=== PATIENT | female | born 1955 | race Caucasian/White ===

== ENCOUNTER 2020-08-10 06:19 | Outpatient (REF) | payer MEDICARE, SELFPAY ==
[2020-08-10 07:47] LABS: Cholesterol 200 mg/dL; HDL Cholesterol 38 mg/dL; LDL Cholesterol Calculated 123 mg/dl; Triglycerides 196 mg/dL
[2020-08-10 08:10] LABS: Thyroid Stimulating Hormone 0.39 mIU/mL (0.32-4.0)
== END 2020-08-10 06:20 | disposition home or self-care (01) ==
LOC: HO.LAB 06:19
PROVIDERS: PCP Internal Medicine; Visit Provider Internal Medicine
DX: E78.5 Hyperlipidemia, unspecified (principal)
CPT/HCPCS: 80061; 84443

== ENCOUNTER 2020-09-10 09:56 | Outpatient (REF) | payer MEDICARE, SELFPAY | END 2020-09-10 09:57 | disposition home or self-care (01) | LOC: HO.LAB 09:56 | PROVIDERS: PCP Internal Medicine; Visit Provider Internal Medicine | DX: Z20.828 Contact with and (suspected) exposure to other viral communicable diseases (principal) | CPT/HCPCS: C9803; U0003 ==

== ENCOUNTER 2020-09-11 10:00 | Outpatient (REF) | payer MEDICARE, SELFPAY ==
--- NOTE | 2020-09-11 10:04 | MM_ITS ---
EXAMINATION: MM SCREENING DIGITAL BREAST TOMOSYNTHESIS, BILATERAL CLINICAL INFORMATION: Screening. Asymptomatic. The lifetime risk of breast cancer based on the Tyrer-Cuzick Model is 12%. COMPARISON: Mammography: 09/06/2019, 08/14/2018 TECHNIQUE: Digital breast tomosynthesis is performed in both the craniocaudal and mediolateral oblique views along with computer-aided detection (CAD). Synthesized 2D images are generated from the tomosynthesis. Additional left cleavage view is provided. FINDINGS: The breasts are almost entirely fatty (ACR BI-RADS breast composition Category a). Background stromal markings and fibroglandular densities anterior breasts are stable. There is no developing density or interval mass or architectural abnormality. No abnormal calcifications. No significant changes. MM/MM tomosynthesis screening BI IMPRESSION: No mammographic evidence of malignancy. ASSESSMENT: BI-RADS 1: Negative RECOMMENDATION: Routine annual mammography screening. This patient's information was entered into a reminder system with a target due date for their next mammogram.
== END 2020-09-11 10:01 | disposition home or self-care (01) ==
LOC: HO.MAMMO 10:00
PROVIDERS: PCP Internal Medicine; Visit Provider Internal Medicine
DX: Z12.31 Encounter for screening mammogram for malignant neoplasm of breast (principal)
CPT/HCPCS: 77063; 77067

== ENCOUNTER 2020-09-18 14:04 | Outpatient (REF) | payer MEDICARE, SELFPAY ==
[2020-09-18 14:46] LABS: MANUAL DIFF FLAG NO
[2020-09-18 14:47] LABS: Basophils Percent Auto 0.3 % (0-2); Eosinophils Percent Auto 0.5 % (0-4); Hematocrit 41.5 % (37-47); Hemoglobin 13.3 g/dl (12.0-16.0); Imm Gran Abs Auto 0.01 X10*3/uL (0.00-0.03); Imm Gran Pct Auto 0.3 % (0.0-0.4); Lymphocytes Absolute Auto 1.7 X10*3/uL (1.2-4.9); Lymphocytes Percent Auto 46.4 % (20-40); Mean Corpuscular Hemoglobin 30.1 pg (27.0-33.0); Mean Corpuscular Volume 93.9 fL (80-98); Mean Platelet Volume 10.4 fL (9.4-12.3); Monocytes Absolute Auto 0.5 X10*3/uL (0.1-1.2); Monocytes Percent Auto 13.5 % (2-11); Neutrophils Absolute Auto 1.5 X10*3/uL (2.0-8.3); Platelet Count 149 X10*3/uL (160-400); Red Blood Count 4.42 X10*6/uL (4.20-5.50); Red Cell Distribution Width 12.8 % (11.0-16.0); White Blood Count 3.7 X10*3/uL (4.8-10.8)
[2020-09-18 15:23] LABS: Anion Gap 11 (12-20); Blood Urea Nitrogen 15 mg/dL (9-16); Carbon Dioxide 27 mmol/L (22-29); Chloride 106 mmol/L (96-108); Estimated Glomerular Filt Rate 52; Glucose Random 89 mg/dL (60-115); Potassium 4.2 mmol/l (3.3-5.1); Sodium 140 mmol/L (135-145)
== END 2020-09-18 14:05 | disposition home or self-care (01) ==
LOC: HO.LAB 14:04
PROVIDERS: PCP Internal Medicine; Visit Provider Internal Medicine
DX: Z00.00 Encounter for general adult medical examination without abnormal findings (principal); R51.9 Headache, unspecified
CPT/HCPCS: 36415; 80048; 85025

== ENCOUNTER 2020-09-22 10:13 | Outpatient (REF) | payer MEDICARE, SELFPAY ==
--- NOTE | 2020-09-22 10:25 | US_ITS ---
EXAMINATION: US ABDOMEN COMPLETE CLINICAL INFORMATION: Unspecified abdominal pain. COMPARISON: CT abdomen and pelvis 07/19/2018. Ultrasound abdomen 11/04/2010. TECHNIQUE: Real-time imaging of the abdominal viscera. FINDINGS: PANCREAS: Normal. ABDOMINAL AORTA: The proximal, mid, and distal segments are normal in caliber. INFERIOR VENA CAVA: Visualized portions are normal. LIVER: The liver is enlarged. The right lobe measures 20.3 cm. There is mild hepatic increased echogenicity with focal fatty sparing adjacent to the gallbladder. No other focal liver lesions seen. The liver contour is normal. There is no intrahepatic biliary duct dilatation seen. GALLBLADDER: Normal. The gallbladder is physiologically distended without evidence of stones, sludge, polyps, wall thickening, or pericholecystic fluid. COMMON BILE DUCT: Normal in caliber measuring 0.4 cm in diameter. RIGHT KIDNEY: Normal. No hydronephrosis. No renal calculi or focal parenchymal lesions. The kidney measures 12.7 cm in maximum dimension. LEFT KIDNEY: There are 2 anechoic cysts seen. A lower pole cyst measures 1.9 x 1.7 x 2.5 cm and an upper pole cyst measures 1.2 x 1.4 x 1.3 cm. Suspect mild hydronephrosis. No renal calculi. The kidney measures 11.0 cm in maximum dimension. SPLEEN: Normal. The spleen measures 13.0 cm in maximum dimension. FREE FLUID: None. US/US abdomen complete IMPRESSION: Hepatomegaly with hepatic steatosis. There is focal fatty sparing adjacent to the gallbladder. Two left renal cysts with mild hydronephrosis.
== END 2020-09-22 10:14 | disposition home or self-care (01) ==
LOC: HO.HMGCX 10:13
PROVIDERS: PCP Internal Medicine; Visit Provider Internal Medicine
DX: R10.9 Unspecified abdominal pain (principal)
CPT/HCPCS: 76700

== ENCOUNTER 2020-09-23 10:59 | Outpatient (REF) | payer MEDICARE, SELFPAY ==
[2020-09-23 11:35] LABS: MANUAL DIFF FLAG NO
[2020-09-23 11:45] LABS: Basophils Percent Auto 0.4 % (0-2); Eosinophils Absolute Auto 0.1 X10*3/uL (0.0-0.4); Eosinophils Percent Auto 1.1 % (0-4); Hematocrit 42.5 % (37-47); Hemoglobin 13.6 g/dl (12.0-16.0); Imm Gran Abs Auto 0.02 X10*3/uL (0.00-0.03); Imm Gran Pct Auto 0.4 % (0.0-0.4); Lymphocytes Absolute Auto 1.9 X10*3/uL (1.2-4.9); Lymphocytes Percent Auto 42.5 % (20-40); Mean Corpuscular Hemoglobin 30.2 pg (27.0-33.0); Mean Corpuscular Volume 94.4 fL (80-98); Monocytes Absolute Auto 0.6 X10*3/uL (0.1-1.2); Monocytes Percent Auto 13.3 % (2-11); Neutrophils Absolute Auto 1.9 X10*3/uL (2.0-8.3); Neutrophils Percent Auto 42.3 % (45-73); Platelet Count 220 X10*3/uL (160-400); Red Cell Distribution Width 12.9 % (11.0-16.0); White Blood Count 4.5 X10*3/uL (4.8-10.8)
[2020-09-23 12:12] LABS: Anion Gap 11 (12-20); Blood Urea Nitrogen 14 mg/dL (9-16); Calcium 8.7 mg/dL (8.4-10.2); Carbon Dioxide 27 mmol/L (22-29); Chloride 107 mmol/L (96-108); Cholesterol 148 mg/dL; Estimated Glomerular Filt Rate 58; Glucose Random 100 mg/dL (60-115); HDL Cholesterol 25 mg/dL; LDL Cholesterol Calculated 81 mg/dl; Potassium 4.4 mmol/l (3.3-5.1); Sodium 141 mmol/L (135-145); Triglycerides 213 mg/dL
[2020-09-23 12:35] LABS: Thyroid Stimulating Hormone 0.27 uIU/mL (0.32-4.0)
== END 2020-09-23 11:00 | disposition home or self-care (01) ==
LOC: HO.LAB 10:59
PROVIDERS: PCP Internal Medicine; Visit Provider Internal Medicine
DX: E03.9 Hypothyroidism, unspecified (principal); R51.9 Headache, unspecified; Z00.00 Encounter for general adult medical examination without abnormal findings; E11.9 Type 2 diabetes mellitus without complications
CPT/HCPCS: 36415; 80048; 80061; 84443; 85025

== ENCOUNTER → 2020-11-24 09:10 | Outpatient (BNVA) | payer MEDICARE, SELFPAY | PROVIDERS: PCP Internal Medicine; Visit Provider Physician Assistant | DX: Z13.89 Encounter for screening for other disorder (principal) | CPT/HCPCS: 99212 ==

== ENCOUNTER 2020-11-25 13:33 | Outpatient (REF) | payer MEDICARE, SELFPAY | END 2020-11-25 13:34 | disposition home or self-care (01) | LOC: HO.LAB 13:33 | PROVIDERS: Visit Provider Internal Medicine | DX: Z20.822 Contact with and (suspected) exposure to COVID-19 (principal) | CPT/HCPCS: 36415; C9803; U0003 ==

== ENCOUNTER 2021-01-14 08:02 | Day surgery (SDC) | payer MEDICARE, SELFPAY ==
[2021-01-08 11:44] VITALS: BMI 46.5
--- NOTE | 2021-01-13 10:11 | HO.ANESPROP2 ---
Documented by User: Luann Walton 01/13/21 10:12 HPI - Anesthesia Eval Consult details Narrative: 65yo F for Upper Endoscopy and Colonoscopy PMFSH Active Problems Active Problems: All Active Problems (Updated 01/08/21 @ 11:47 by Therese Wiseman) Hypothyroidism (Acute) Peripheral edema (Acute) Abdominal pain (Acute) Abdominal bloating (Acute) Early satiety (Acute) Encounter for screening colonoscopy (Acute) HTN (hypertension) (Acute) Past Medical History Medical History Elevated cholesterol History of fatty infiltration of liver HTN (hypertension) Hx of simple renal cyst Peptic ulcer Thyroid disease Family History Family History Father CVD (cardiovascular disease) Past heart attack Mother Breast cancer Bone metastases Brother Past heart attack Surgical History Surgical History History of bilateral cataract extraction History of tonsillectomy and adenoidectomy Social History Social History Household Members: None Are you a primary residential caregiver to a significant other at home: No Do you presently have visiting nurse or other home services: No Alcohol intake: never Smoking Status: Never smoker Use of substances other than those prescribed or required for medical reasons: No Have you been hit, kicked, punched, or otherwise hurt by someone within the past year? If so, by whom?: No Advance Directives Information Provided: No Recently lost weight without trying: No Meds Allergies Allergy/AdvReac Type Severity Reaction Status Date / Time bee pollen Allergy Severe Swelling Verified 01/08/21 11:43 ciprofloxacin [From Cipro] Allergy Severe RASH-ITCHIN Verified 01/08/21 11:30 G Penicillins Allergy Intermediate Rash Verified 01/08/21 11:30 Sulfa (Sulfonamide Allergy Intermediate HIVES Verified 11/24/20 09:29 Antibiotics) [SULFA (SULFONAMIDE ANTIBIOTICS)] Home Medications Medication Instructions Recorded Confirmed Last Taken Type prednisolone acetate 1 % eye drp OPHTHALMIC (EYE) 08/17/20 09/28/20 Unknown History drops,suspension furosemide 20 mg PO Q2D 01/08/21 01/08/21 Unknown History lovastatin 10 mg PO BEDTIME 01/08/21 01/08/21 Unknown History Exam Exam Date and Time: January 13, 2021 1011 Height,Weight and Vital Signs: Height 5 ft 9 in Weight 142.882 kg Pertinent Lab Results Pertinent Lab Results: Laboratory Tests 09/23/20 09/23/20 11:20 11:20 WBC 4.5 L Hgb 13.6 Hct 42.5 Plt Count 220 D Sodium 141 Potassium 4.4 Chloride 107 Carbon Dioxide 27 BUN 14 Creatinine 0.96 Assessment and Plan Assessment Anesthesia Assessment: Chart Reviewed Documented by User: Zak Juarez 01/14/21 09:10 PMF Past Medical History Medical History Elevated cholesterol History of fatty infiltration of liver HTN (hypertension) Hx of simple renal cyst Peptic ulcer Thyroid disease Family History Family History Father CVD (cardiovascular disease) Past heart attack Mother Breast cancer Bone metastases Brother Past heart attack Surgical History Surgical History History of bilateral cataract extraction History of tonsillectomy and adenoidectomy Social History Social History Household Members: None Are you a primary residential caregiver to a significant other at home: No Do you presently have visiting nurse or other home services: No Alcohol intake: never Smoking Status: Never smoker Use of substances other than those prescribed or required for medical reasons: No Have you been hit, kicked, punched, or otherwise hurt by someone within the past year? If so, by whom?: No Advance Directives Information Provided: No Recently lost weight without trying: No Meds Allergies Allergy/AdvReac Type Severity Reaction Status Date / Time bee pollen Allergy Severe Swelling Verified 01/08/21 11:43 ciprofloxacin [From Cipro] Allergy Severe RASH-ITCHIN Verified 01/08/21 11:30 G Penicillins Allergy Intermediate Rash Verified 01/08/21 11:30 Sulfa (Sulfonamide Allergy Intermediate HIVES Verified 11/24/20 09:29 Antibiotics) [SULFA (SULFONAMIDE ANTIBIOTICS)] Home Medications Medication Instructions Recorded Confirmed Last Taken Type prednisolone acetate 1 % eye drp OPHTHALMIC (EYE) 08/17/20 09/28/20 Unknown History drops,suspension furosemide 20 mg PO Q2D 01/08/21 01/08/21 Unknown History lovastatin 10 mg PO BEDTIME 01/08/21 01/08/21 Unknown History Exam Airway Mallampati Class: III TM Dist: >3cm Neck ROM: Full Loose/Missing/Broken Teeth: Yes Heart: [id number] Lungs: cta b/l Assessment and Plan Assessment Anesthesia Assessment: Anesthesia Plan Discussed, PAT Visit and Chart Reviewed Final Anesthetic Review NPO: Yes ASA Class: III Final Preanesthetic Review: No Changes in Pt Med Stat, Meds/Allgs Chart Reviewed, Consent Obtained/Reviewed and Anes Risks/Benef Reviewed Patient Risk: Intermediate Procedure Risk: Low Assessment/Block/Sedation in SS: Assess/Block/Sedation-SS Anesthetic Plan Anesthetic Plan: MAC: and Agree w/ Assess. and Plan Disposition: Standard PACU
[2021-01-14 08:33] VITALS: BP 138/64; PULSE 62; RESP 18; TEMP 36.4; O2SAT 98
[2021-01-14] MEDS: Lactated Ringers 1,000 ML 50 ML IV (09:20)
--- NOTE | 2021-01-14 09:25 | MHC.SHP ---
Pre-Procedural Eval Section B Chief Complaint: screening Details of Present Illness: Gerd-dyspepsia, Colon cancer screening No clinical changes from last preprocedure visit BMI--46.5 Relevant Family History (Specify if Yes): No Relevant Social History: None Present Medications: see Short Stay Collaborative assessment Medical History: Significant History (Morbid obesity, Hypertension) History of Previous Operations: No relevant previous surgery Allergies: Allergies Allergy/AdvReac Type Severity Reaction Status Date / Time bee pollen Allergy Severe Swelling Verified 01/08/21 11:43 ciprofloxacin [From Cipro] Allergy Severe RASH-ITCHIN Verified 01/08/21 11:30 G Penicillins Allergy Intermediate Rash Verified 01/08/21 11:30 Sulfa (Sulfonamide Allergy Intermediate HIVES Verified 11/24/20 09:29 Antibiotics) [SULFA (SULFONAMIDE ANTIBIOTICS)] Review of Systems Sugical H&P ROS: Negative: Constitution, Cardiovascular, Respiratory and Gastrointestinal Exam Surgical H&P Exam: Normal: HEENT, Normal: Heart, Normal: Lungs, Normal: Extremities and Normal: Skin and Significant Findings: Abdomen (central obesity) Exam Comment: Patient does want to do the EGD as well. Plan Diagnosis/Plan: Unchanged I have reviewed the history and physical and performed a pertinent physical examination on my patient. No changes have occurred unless specified.yes
[2021-01-14 10:08] VITALS: BP 99/53; PULSE 64; RESP 20; TEMP 36.3; O2SAT 98
--- NOTE | 2021-01-14 10:17 | PM.OP ---
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
[2021-01-14 10:23] VITALS: BP 118/70; PULSE 53; RESP 20; TEMP 36.3; O2SAT 97
--- NOTE | 2021-01-14 12:32 | P.OP_ITS ---
Operative Note Operative Note Date of Service: 01/14/21 Narrative: Preop diagnosis: GERD; Colon cancer screening #1 Post-op diagnosis: other (Small Hiatal hernia, Diverticulosis, Venous blebs) Procedure: EGD w/ bx; Colonoscopy Implants: NONE Surgeon: Keke Hopkins MD Anesthesia: MAC (Cuff,VISION REHABILITATION THERAPIST) FINDINGS: EGD: Video endoscope was introduced with no difficulty: View of the arytenoid cartilages showed mild edema with erythema medially that did not involve the cords. Vocal cords appeared clear. Scope easily passed into the esophagus. No mucosal lesions were seen in this area and no esophageal varices were present. GE junction was visualized. Gastric mucosa was normal. Good retroflex view of the fundus was normal. Duodenal bulb and duodenum were normal. Random gastric bx were done on withdrawing the scope. AHSAN:Sphincter tone slight decrease Adult slim colonoscope introduced with no difficulty, advanced by multiple wide mouth diverticuli into transverse colon. From this area on scattered venous blebs were noted. Scope passed easily into the ascending colon and then into the cecum. Appendiceal orifice, ileocecal valve were well seen. PREP: Good Slow withdrawal of scope, good rotational views no mucosal lesions were seen. ARV was clear. (no bx done). Estimated blood loss (mL): 5 Pathology: other EGD--(Random gastric) Condition: stable Disposition: PACU PLAN: Patient will be seen back in the office to review findings. She had had some significant findings on imaging of her liver--U/S done in August 2020. Hepatomegaly, steatosis, and borderline spleen size @ 13cm. Further testing to evaluate that finding will be discussed @ that time.
== END 2021-01-14 10:53 | disposition home or self-care (01) ==
PROVIDERS: PCP Internal Medicine; Visit Provider Internal Medicine Gastroenterology
PROC: (CPT 43239; principal; 2021-01-14 09:20)
DX: Z12.11 Encounter for screening for malignant neoplasm of colon (principal); K57.30 Diverticulosis of large intestine without perforation or abscess without bleeding; K21.9 Gastro-esophageal reflux disease without esophagitis; K44.9 Diaphragmatic hernia without obstruction or gangrene; I10 Essential (primary) hypertension; E03.9 Hypothyroidism, unspecified; N28.1 Cyst of kidney, acquired; E66.01 Morbid (severe) obesity due to excess calories; Z68.42 Body mass index [BMI] 45.0-49.9, adult; Z79.899 Other long term (current) drug therapy; Z88.0 Allergy status to penicillin; Z88.2 Allergy status to sulfonamides; Z87.11 Personal history of peptic ulcer disease
CPT/HCPCS: 43239; G0121; 88305; 88342

== ENCOUNTER → 2021-02-04 09:39 | Outpatient (BNVA) | payer MEDICARE, SELFPAY | PROVIDERS: PCP Internal Medicine; Visit Provider Physician Assistant | DX: K44.9 Diaphragmatic hernia without obstruction or gangrene (principal); K57.30 Diverticulosis of large intestine without perforation or abscess without bleeding; K76.0 Fatty (change of) liver, not elsewhere classified | CPT/HCPCS: 99212 ==

== ENCOUNTER 2021-02-08 06:27 | Outpatient (REF) | payer MEDICARE, SELFPAY ==
[2021-02-08 08:18] LABS: Anion Gap 16 (12-20); Blood Urea Nitrogen 17 mg/dL (9-16); Calcium 9.1 mg/dL (8.4-10.2); Carbon Dioxide 24 mmol/L (22-29); Chloride 106 mmol/L (96-108); Estimated Glomerular Filt Rate 55; Glucose Random 103 mg/dL (60-115); Potassium 4.4 mmol/L (3.3-5.1); Sodium 142 mmol/L (135-145)
[2021-02-08 08:41] LABS: Thyroid Stimulating Hormone 0.14 uIU/mL (0.32-4.0)
== END 2021-02-08 06:28 | disposition home or self-care (01) ==
LOC: HO.LAB 06:27
PROVIDERS: PCP Internal Medicine; Visit Provider Internal Medicine
DX: E03.9 Hypothyroidism, unspecified (principal); R51.9 Headache, unspecified
CPT/HCPCS: 36415; 80048; 84443

== ENCOUNTER 2021-07-21 11:09 | Outpatient (REF) | payer MEDICARE, SELFPAY | END 2021-07-21 11:10 | disposition home or self-care (01) | LOC: HO.LAB 11:09 | PROVIDERS: PCP Internal Medicine; Visit Provider Internal Medicine | DX: Z20.822 Contact with and (suspected) exposure to COVID-19 (principal) | CPT/HCPCS: C9803; U0003; U0005 ==

== ENCOUNTER 2021-08-12 06:41 | Outpatient (REF) | payer MEDICARE, SELFPAY ==
[2021-08-12 06:46] LABS: MANUAL DIFF FLAG NO
[2021-08-12 07:15] LABS: Basophils Percent Auto 0.6 % (0-2); Eosinophils Percent Auto 1.9 % (0-4); Hematocrit 42.5 % (37-47); Hemoglobin 13.9 g/dl (12.0-16.0); Imm Gran Abs Auto 0.02 X10*3/uL (0.00-0.03); Imm Gran Pct Auto 0.2 % (0.0-0.4); Lymphocytes Absolute Auto 2.6 X10*3/uL (1.2-4.9); Lymphocytes Percent Auto 27.2 % (20-40); Mean Corpuscular HGB Conc 32.7 g/dl (31.0-35.0); Mean Corpuscular Hemoglobin 31.1 pg (27.0-33.0); Mean Corpuscular Volume 95.1 fL (80-98); Mean Platelet Volume 9.5 fL (9.4-12.3); Monocytes Percent Auto 6.4 % (2-11); Neutrophils Percent Auto 63.7 % (45-73); Platelet Count 235 X10*3/uL (160-400); Red Blood Count 4.47 X10*6/uL (4.20-5.50); Red Cell Distribution Width 13.2 % (11.0-16.0); White Blood Count 9.5 X10*3/uL (4.8-10.8)
[2021-08-12 07:16] LABS: Basophils Absolute Auto 0.1 X10*3/uL (0.0-0.2); Eosinophils Absolute Auto 0.2 X10*3/uL (0.0-0.4); Monocytes Absolute Auto 0.6 X10*3/uL (0.1-1.2)
[2021-08-12 07:58] LABS: Alanine Aminotransferase 20 U/L (0-31); Albumin Level 4.3 g/dL (3.5-5.0); Alkaline Phosphatase 91 U/L (39-117); Anion Gap 11 (12-20); Aspartate Amino Transferase 20 U/L (5-31); Bilirubin Total 0.8 mg/dL (0.0-1.0); Blood Urea Nitrogen 16 mg/dL (9-16); Calcium 9.4 mg/dL (8.4-10.2); Carbon Dioxide 28 mmol/L (22-29); Chloride 105 mmol/L (96-108); Cholesterol 216 mg/dL; Estimated Glomerular Filt Rate 50; Glucose Fasting 98 mg/dL (60-99); HDL Cholesterol 39 mg/dL; LDL Cholesterol Calculated 141 mg/dl; Potassium 4.3 mmol/L (3.3-5.1); Sodium 140 mmol/L (135-145); Total Protein 6.9 g/dL (6.5-8.0); Triglycerides 183 mg/dL
[2021-08-12 08:06] LABS: Thyroid Stimulating Hormone 5.05 uIU/mL (0.32-4.0)
== END 2021-08-12 06:42 | disposition home or self-care (01) ==
LOC: HO.LAB 06:41
PROVIDERS: PCP Internal Medicine; Visit Provider Internal Medicine
DX: Z00.00 Encounter for general adult medical examination without abnormal findings (principal); E11.9 Type 2 diabetes mellitus without complications; E03.9 Hypothyroidism, unspecified
CPT/HCPCS: 36415; 80053; 80061; 84443; 85025

== ENCOUNTER 2021-09-01 10:40 | Outpatient (REF) | payer MEDICARE, SELFPAY ==
--- NOTE | ~2021-09-01 | XR_ITS ---
EXAMINATION: XR CHEST CLINICAL INFORMATION: Dizziness. COMPARISON: 03/18/2015 TECHNIQUE: 2 views of the chest were obtained. FINDINGS: There is no acute finding. No infiltrate. No failure. No effusion. The cardiac silhouette is felt to be comparable to previous. The hilar structures are comparable. Mild degenerative change in the thoracic spine. XR/XR chest 2V IMPRESSION: No acute finding.
[2021-09-01 11:04] LABS: MANUAL DIFF FLAG NO
--- NOTE | 2021-09-01 11:06 | ECG_ITS ---
Test Reason : SOB HEADACHE Blood Pressure : / mmHG Vent. Rate : 058 BPM Atrial Rate : 058 BPM P-R Int : 138 ms QRS Dur : 112 ms QT Int : 418 ms P-R-T Axes : 035 -49 -17 degrees QTc Int : 410 ms Sinus bradycardia Left anterior fascicular block Abnormal ECG When compared with ECG of 18-MAR-2015 11:20, Premature supraventricular complexes are no longer Present Referred By: Ilia Stanton Electronically Signed By:RENE VINES MD
[2021-09-01 11:11] LABS: Basophils Percent Auto 0.5 % (0-2); Eosinophils Absolute Auto 0.2 X10*3/uL (0.0-0.4); Eosinophils Percent Auto 2.2 % (0-4); Hematocrit 44.2 % (37.0-47.0); Hemoglobin 14.4 g/dl (12.0-16.0); Imm Gran Abs Auto 0.03 X10*3/uL (0.00-0.03); Imm Gran Pct Auto 0.3 % (0.0-0.4); Lymphocytes Absolute Auto 2.5 X10*3/uL (1.2-4.9); Mean Corpuscular HGB Conc 32.6 g/dl (31.0-35.0); Mean Corpuscular Hemoglobin 31.3 pg (27.0-33.0); Mean Corpuscular Volume 96.1 fL (80.0-98.0); Mean Platelet Volume 9.5 fL (9.4-12.3); Monocytes Absolute Auto 0.6 X10*3/uL (0.1-1.2); Monocytes Percent Auto 6.5 % (2-11); Neutrophils Absolute Auto 5.32 x10*3/uL (2.0-8.3); Neutrophils Percent Auto 61.5 % (45-73); Platelet Count 239 X10*3/uL (160-400); Red Cell Distribution Width 13.2 % (11.0-16.0); White Blood Count 8.7 X10*3/uL (4.8-10.8)
[2021-09-01 12:10] LABS: Anion Gap 10 (12-20); Blood Urea Nitrogen 18 mg/dL (9-16); Calcium 9.7 mg/dL (8.4-10.2); Carbon Dioxide 30 mmol/L (22-29); Chloride 105 mmol/L (96-108); Cholesterol 214 mg/dL; Estimated Glomerular Filt Rate 58; Glucose Random 95 mg/dL (60-115); HDL Cholesterol 47 mg/dL; LDL Cholesterol Calculated 138 mg/dl; Potassium 4.5 mmol/L (3.3-5.1); Sodium 140 mmol/L (135-145); Triglycerides 149 mg/dL
[2021-09-01 12:32] LABS: Thyroid Stimulating Hormone 2.02 uIU/mL (0.32-4.0)
== END 2021-09-01 10:41 | disposition home or self-care (01) ==
LOC: HO.XRAY 10:40
PROVIDERS: PCP Internal Medicine; Visit Provider Internal Medicine
DX: Z00.00 Encounter for general adult medical examination without abnormal findings (principal); Z13.9 Encounter for screening, unspecified; E11.9 Type 2 diabetes mellitus without complications; E03.9 Hypothyroidism, unspecified; R51.9 Headache, unspecified; R42 Dizziness and giddiness
CPT/HCPCS: 36415; 71046; 80048; 80061; 84443; 85025; 93005

== ENCOUNTER 2021-09-07 10:04 | Outpatient (REF) | payer MEDICARE, SELFPAY | END 2021-09-07 10:05 | disposition home or self-care (01) | LOC: HO.LAB 10:04 | PROVIDERS: PCP Internal Medicine; Visit Provider Internal Medicine | DX: Z20.822 Contact with and (suspected) exposure to COVID-19 (principal) | CPT/HCPCS: C9803; U0003; U0005 ==

== ENCOUNTER 2021-09-09 06:57 | Emergency (ER) | payer MEDICARE, SELFPAY ==
--- NOTE | ~2021-09-09 | US_ITS ---
EXAMINATION: US VENOUS ULTRASOUND WITH DOPPLER LOWER EXTREMITY, LEFT CLINICAL INFORMATION: Pain and swelling left calf. Assess for occult DVT. COMPARISON: Left lower extremity venous ultrasound with Doppler. TECHNIQUE: Ultrasound of the deep veins is performed from the hip to the calf with compression sonography and color and pulse Doppler assessment. Spectral analysis with color-flow imaging is performed. FINDINGS: There is normal venous compression and respiratory variation and augmented flow. The visualized common femoral vein, superficial femoral vein, profunda femoral vein, popliteal vein, and the trifurcation region shows no evidence of deep venous thrombosis. No popliteal fossa cyst. No fluid tracking in soft tissue planes. US/US venous duplex LE LT IMPRESSION: No DVT demonstrated in the left lower extremity.
[2021-09-09 07:06] VITALS: BP 129/72; PULSE 64; RESP 19; TEMP 36.6; O2SAT 94; BMI 44.3
--- NOTE | 2021-09-09 08:58 | ED.GENADULT ---
HPI - General Adult General Chief complaint: Extremity Injury, Lower Stated complaint: lt leg pain & swelling Time Seen by Provider: 09/09/21 08:56 Source: patient Limitations: no limitations History of Present Illness HPI narrative: Patient presents complaining of left calf pain. Patient states pain in question swelling since yesterday. Patient denies any recent trauma to the left calf. Patient denies any prior history of DVTs or pulmonary embolisms. Patient does have history of hypertension hypercholesterolemia. And hypothyroidism. Pain is 6/10 and increases with palpation and ambulation. No prior history of similar events. Symptoms are moderate. Patient denies chest pain shortness of breath fever chills nausea vomiting. Related Data Home Medications Medication Instructions Recorded Confirmed furosemide 20 mg tablet 20 mg PO Q2D 01/08/21 09/01/21 brimonidine 0.2 % eye drops 1 drp OPHTHALMIC (EYE) BID ml 08/19/21 09/01/21 Previous Rx's Medication Instructions Recorded atenolol 50 mg tablet 50 mg PO DAILY #90 tab 10/16/20 omeprazole 20 mg capsule,delayed 20 mg PO DAILY #90 cap 01/19/21 release levothyroxine 200 mcg tablet 200 mcg PO DAILY #90 tab 08/19/21 lovastatin 20 mg tablet 20 mg PO DAILY #90 tab 08/19/21 grruwftpre-anfweotgdwksz-qcroiywi 1 cap PO Q8H PRN #14 cap 09/02/21 50 mg-300 mg-40 mg capsule (Fioricet) methocarbamol 500 mg tablet 500 mg PO TID PRN #20 tab 09/09/21 Allergies Allergy/AdvReac Type Severity Reaction Status Date / Time bee pollen Allergy Severe Swelling Verified 09/01/21 10:14 ciprofloxacin [From Cipro] Allergy Severe RASH-ITCHIN Verified 09/01/21 10:14 G Penicillins Allergy Intermediate Rash Verified 09/01/21 10:14 Sulfa (Sulfonamide Allergy Intermediate HIVES Verified 09/01/21 10:14 Antibiotics) [SULFA (SULFONAMIDE ANTIBIOTICS)] Review of Systems Constitutional: Constitutional: Denies chills, Denies fatigue, Denies fever(s) and Denies headache(s) ENT: Denies headache(s) and Denies sore throat Cardiovascular: Cardiovascular: Denies chest pain and Denies dyspnea Respiratory: Respiratory: Denies dyspnea Gastrointestinal: Gastrointestinal: Denies nausea and Denies vomiting Musculoskeletal: Comments: Left calf pain Neurologic: Denies headache(s) Endocrine: Endocrine: Reports no additional endocrine complaints and Denies fatigue Hematologic/Lymphatic: Hematologic/Lymphatic: Reports no additional hematologic/lymphatic complaints [facility] Past Medical History Medical History (Updated 09/09/21 @ 10:11 by Solo Sierra) Elevated cholesterol Hiatal hernia History of fatty infiltration of liver HTN (hypertension) Hx of simple renal cyst Peptic ulcer Thyroid disease Surgical History History of bilateral cataract extraction History of colonoscopy History of endoscopy History of tonsillectomy and adenoidectomy Family History Family History Father CVD (cardiovascular disease) Past heart attack Mother Breast cancer Bone metastases Brother Past heart attack Social History Social History Household Members: None Housing: Apartment Are you a primary acute care nurse practitioner to a significant other at home: No Do you presently have visiting nurse or other home services: No Alcohol intake: never Patient Tobacco Use Status: Never used Tobacco e-Cigarette/Vaping Use: Never Used Second Hand Smoke Exposure: No Advance Directives: No service: No Current occupational status: retired Cognitive needs: No Hearing needs: No Vision needs: No Physical Exam Vital Signs: Vital Signs: Last Vital Signs Temp 98 F 09/09/21 07:06 Pulse 56 09/09/21 09:35 Resp 16 09/09/21 09:35 BP 128/67 09/09/21 09:35 Pulse Ox 97 09/09/21 09:35 Body Mass Index 44.3 vital signs have been reviewed as normal and appeared to be correct. Blood pressure normal. Heart rate normal. Respiration rate normal. Temperature normal. Oxygen saturation normal. Appearance: Alert. Oriented X3. No acute distress. Head: Normal external exam. Normocephalic. Atraumatic. Eyes: PERRLA. EOMI. Conjunctiva and sclera normal. Eyelids normal. ENT: Pharynx normal. Uvula midline. Moist mucous membranes. Neck: Soft full range of motion, no JVD CVS: Heart regular rate and rhythm no murmurs and rubs Respiratory: Breath sounds are clear to auscultation bilaterally. No accessory muscle use noted. Abdomen: Soft nontender no rebound or guarding positive bowel sounds Back: Full range of motion noted. Skin: Skin warm and dry. Normal skin color. Normal skin turgor. No rashes/lesions/lacerations noted. Extremities: Left calf positive tenderness no ecchymosis no erythema noted. Keflex equal in size to the right calf. Pain increases with palpation. Neuro: Oriented X 3. No motor deficit. No sensory deficit. Reflexes normal. Course Course Course Narrative: Left calf strain Left leg DVT Neuropathy Vitamin deficiency Duplex ultrasound pending of left lower extremity 10:10 a.m. Ultrasound of left lower extremity shows no sign of DVT at this time plan the patient's symptoms likely secondary to calf cramping and/or muscle skeletal strain Medical Decision Making Imaging Data Venous US: Radiologist's impression: [address] [address] Ultrasound Report Signed Patient: Kirstin Tucker MR#: [id number] : 1955 Acct:[id number] Age/Sex: 65 / F ADM Date: 09/09/21 Loc: .ED Attending Dr: Ordering Physician: Solo Sierra Date of Service: 09/09/21 Procedure(s): US venous duplex LE Accession Number(s): [id number] cc: Solo Sierra ~ EXAMINATION:? US VENOUS ULTRASOUND WITH DOPPLER LOWER EXTREMITY, LEFT CLINICAL INFORMATION:? Pain and swelling left calf. Assess for occult DVT. COMPARISON:? Left lower extremity venous ultrasound with Doppler. TECHNIQUE: Ultrasound of the deep veins is performed from the hip to the calf with compression sonography and color and pulse Doppler assessment. Spectral analysis with color-flow imaging is performed. FINDINGS: There is normal venous compression and respiratory variation and augmented flow. The visualized common femoral vein, superficial femoral vein, profunda femoral vein, popliteal vein, and the trifurcation region shows no evidence of deep venous thrombosis. ? No popliteal fossa cyst. No fluid tracking in soft tissue planes. US/US venous duplex LE LT IMPRESSION: No DVT demonstrated in the left lower extremity. Dictated By: Reynold Beasley MD Signed By: <Electronically signed by Reynold Beasley MD in OV> 09/09/21 0953 DD/ 0856 TD/TT:? Communications Equipment Installer: BELL Discharge Plan Discharge Clinical Impression: Strain of calf muscle Qualifiers: Encounter type: initial encounter Laterality: left Qualified Code(s): S86.812A - Strain of other muscle(s) and tendon(s) at lower leg level, left leg, initial encounter Patient Disposition: Home, Self-Care Instructions: Muscle Strain (ED) Additional Instructions: Ultrasound of the left lower extremity is negative for any blood clots If symptoms are likely secondary to muscle calf strain. Although neuropathy pain cannot be ruled out follow-up with PCP is recommended. Prescriptions: New methocarbamol 500 mg tablet 500 mg PO TID PRN (Reason: muscle spasm) Qty: 20 RF: 0 No Action atenolol 50 mg tablet 50 mg PO DAILY Qty: 90 RF: 8 pqaqiqqtxc-gqhwjidttnbbe-yuvf [Fioricet] 50-300-40 mg capsule 1 cap PO Q8H PRN (Reason: pain) Qty: 14 RF: 0 furosemide 20 mg tablet 20 mg PO Q2D RF: 0 omeprazole 20 mg capsule,delayed release(DR/EC) 20 mg PO DAILY Qty: 90 RF: 8 brimonidine 0.2 % drops 1 drp ophthalmic (eye) BID RF: 0 levothyroxine 200 mcg tablet 200 mcg PO DAILY Qty: 90 RF: 8 lovastatin 20 mg tablet 20 mg PO DAILY Qty: 90 RF: 8
--- NOTE | 2021-09-09 09:01 | PC.NURSE ---
c/o left calf swelling. skin pwd. swelling is not noted by this rn.
[2021-09-09 09:35] VITALS: BP 128/67; PULSE 56; RESP 16; O2SAT 97
== END 2021-09-09 10:23 | disposition home or self-care (01) ==
PROVIDERS: Emergency Provider Emergency Medicine; PCP Internal Medicine
DX: S86.912A Strain of unspecified muscle(s) and tendon(s) at lower leg level, left leg, initial encounter (principal); M79.662 Pain in left lower leg; I10 Essential (primary) hypertension; X58.XXXA Exposure to other specified factors, initial encounter; Y93.9 Activity, unspecified; Y92.9 Unspecified place or not applicable; Y99.9 Unspecified external cause status
CPT/HCPCS: 93971; 99284

== ENCOUNTER 2021-11-01 10:30 | Outpatient (REF) | payer MEDICARE, SELFPAY ==
--- NOTE | ~2021-11-01 | MM_ITS ---
EXAMINATION: MM SCREENING DIGITAL BREAST TOMOSYNTHESIS, BILATERAL CLINICAL INFORMATION: Screening. Asymptomatic. The lifetime risk of breast cancer based on the Tyrer-Cuzick Model is 9%. COMPARISON: Mammography: 09/21/2020, 09/06/2019, 08/14/2018 TECHNIQUE: Digital breast tomosynthesis is performed in both the craniocaudal and mediolateral oblique views along with computer-aided detection (CAD). Synthesized 2D images are generated from the tomosynthesis. Additional bilateral CC and additional bilateral MLO views are provided. FINDINGS: The breasts are almost entirely fatty (ACR BI-RADS breast composition Category a). There are no significant masses, abnormal calcifications, or other abnormalities. Background stromal markings are stable. No significant changes. MM/MM tomosynthesis screening BI IMPRESSION: No mammographic evidence of malignancy. ASSESSMENT: BI-RADS 1: Negative RECOMMENDATION: Routine annual mammography screening. This patient's information was entered into a reminder system with a target due date for their next mammogram.
== END 2021-11-01 10:31 | disposition home or self-care (01) ==
LOC: HO.MAMMO 10:30
PROVIDERS: PCP Internal Medicine; Visit Provider Internal Medicine
DX: Z12.31 Encounter for screening mammogram for malignant neoplasm of breast (principal)
CPT/HCPCS: 77063; 77067

== ENCOUNTER 2021-11-19 11:33 | Outpatient (REF) | payer MEDICARE, SELFPAY | END 2021-11-19 11:34 | disposition home or self-care (01) | LOC: HO.LAB 11:33 | PROVIDERS: Visit Provider Internal Medicine | DX: Z20.822 Contact with and (suspected) exposure to COVID-19 (principal); R09.89 Other specified symptoms and signs involving the circulatory and respiratory systems | CPT/HCPCS: U0003; U0005 ==

== ENCOUNTER 2022-01-04 14:40 | Outpatient (REF) | payer MEDICARE, SELFPAY ==
--- NOTE | ~2022-01-04 | XR_ITS ---
EXAMINATION: XR CHEST CLINICAL INFORMATION: Dyspnea COMPARISON: Previous chest x-ray August 2021 TECHNIQUE: 2 views of the chest were obtained. FINDINGS: The cardiac and mediastinal contours are stable. The lungs are clear. There is no pleural effusion or pneumothorax. There are degenerative changes of the spine. XR/XR chest 2V IMPRESSION: No evidence for acute disease in the chest.
--- NOTE | 2022-01-04 14:46 | ECG_ITS ---
Test Reason : Z13.9 Blood Pressure : / mmHG Vent. Rate : 061 BPM Atrial Rate : 061 BPM P-R Int : 132 ms QRS Dur : 116 ms QT Int : 418 ms P-R-T Axes : 037 -50 000 degrees QTc Int : 420 ms Normal sinus rhythm Left anterior fascicular block Minimal voltage criteria for LVH, may be normal variant ( Mickey product ) Nonspecific ST and T wave abnormality Abnormal ECG When compared with ECG of 01-SEP-2021 10:50, Nonspecific T wave abnormality now evident in Anterior leads Referred By: Ilia Stanton Electronically Signed By:SHAMEKA PENDLETON MD
== END 2022-01-04 14:41 | disposition home or self-care (01) ==
LOC: HO.XRAY 14:40
PROVIDERS: PCP Internal Medicine; Visit Provider Internal Medicine
DX: R06.00 Dyspnea, unspecified (principal)
CPT/HCPCS: 71046; 93005

== ENCOUNTER 2022-02-10 09:05 | Outpatient (REF) | payer MEDICARE, SELFPAY ==
[2022-02-10 09:34] LABS: MANUAL DIFF FLAG NO
[2022-02-10 10:18] LABS: Basophils Percent Auto 0.5 % (0-2); Eosinophils Absolute Auto 0.2 X10*3/uL (0.0-0.4); Hematocrit 42.8 % (37.0-47.0); Hemoglobin 13.7 g/dl (12.0-16.0); Imm Gran Abs Auto 0.04 X10*3/uL (0.00-0.03); Imm Gran Pct Auto 0.5 % (0.0-0.4); Lymphocytes Absolute Auto 2.5 X10*3/uL (1.2-4.9); Mean Corpuscular Hemoglobin 30.2 pg (27.0-33.0); Mean Corpuscular Volume 94.3 fL (80.0-98.0); Monocytes Absolute Auto 0.5 X10*3/uL (0.1-1.2); Monocytes Percent Auto 6.3 % (2-11); Neutrophils Absolute Auto 5.1 x10*3/uL (2.0-8.3); Neutrophils Percent Auto 60.7 % (45-73); Platelet Count 244 X10*3/uL (160-400); Red Blood Count 4.54 X10*6/uL (4.20-5.50); Red Cell Distribution Width 13.2 % (11.0-16.0); White Blood Count 8.4 X10*3/uL (4.8-10.8)
[2022-02-10 10:44] LABS: Alanine Aminotransferase 24 U/L (0-31); Albumin Level 4.2 g/dL (3.5-5.0); Alkaline Phosphatase 83 U/L (39-117); Anion Gap 14 (12-20); Aspartate Amino Transferase 21 U/L (5-31); Blood Urea Nitrogen 15 mg/dL (9-16); Calcium 9.6 mg/dL (8.4-10.2); Carbon Dioxide 26 mmol/L (22-29); Chloride 104 mmol/L (96-108); Cholesterol 206 mg/dL; Estimated Glomerular Filt Rate 57; Glucose Fasting 99 mg/dL (60-99); HDL Cholesterol 41 mg/dL; LDL Cholesterol Calculated 130 mg/dl; Potassium 4.4 mmol/L (3.3-5.1); Sodium 140 mmol/L (135-145); Total Protein 6.8 g/dL (6.5-8.0); Triglycerides 176 mg/dL
[2022-02-10 11:06] LABS: Thyroid Stimulating Hormone 0.16 uIU/mL (0.32-4.0)
== END 2022-02-10 09:06 | disposition home or self-care (01) ==
LOC: HO.LAB 09:05
PROVIDERS: PCP Internal Medicine; Visit Provider Internal Medicine
DX: Z00.00 Encounter for general adult medical examination without abnormal findings (principal); Z13.0 Encounter for screening for diseases of the blood and blood-forming organs and certain disorders involving the immune mechanism
CPT/HCPCS: 36415; 80053; 80061; 84443; 85025

== ENCOUNTER → 2022-02-16 08:11 | Outpatient (BNVA) | payer MEDICARE, SELFPAY | PROVIDERS: PCP Internal Medicine; Referring Provider Internal Medicine; Visit Provider Physician Assistant | DX: K44.9 Diaphragmatic hernia without obstruction or gangrene (principal); R07.1 Chest pain on breathing; R06.00 Dyspnea, unspecified | CPT/HCPCS: 99212 ==

== ENCOUNTER 2022-02-21 09:18 | Outpatient (REF) | payer MEDICARE, SELFPAY ==
[2022-02-21 11:54] LABS: Thyroid Stimulating Hormone 0.17 uIU/mL (0.32-4.0)
== END 2022-02-21 09:19 | disposition home or self-care (01) ==
LOC: HO.LAB 09:18
PROVIDERS: PCP Internal Medicine; Visit Provider Internal Medicine
DX: Z13.29 Encounter for screening for other suspected endocrine disorder (principal)
CPT/HCPCS: 36415; 84443

== ENCOUNTER → 2022-03-09 10:07 | Outpatient (BNVA) | payer MEDICARE, SELFPAY | PROVIDERS: PCP Internal Medicine; Referring Provider Internal Medicine; Visit Provider Internal Medicine | DX: R07.2 Precordial pain (principal); R06.02 Shortness of breath; I10 Essential (primary) hypertension; E78.5 Hyperlipidemia, unspecified; E66.01 Morbid (severe) obesity due to excess calories; Z68.42 Body mass index [BMI] 45.0-49.9, adult | CPT/HCPCS: 99202 ==

== ENCOUNTER → 2022-04-20 07:12 | Outpatient (REF) | payer MEDICARE, SELFPAY ==
--- NOTE | 2022-04-20 07:16 | CA_ITS ---
Transthoracic Echocardiogram Patient (Last, First, Middle): Kirstin Tucker M Gender: Female Date of : 1955 Age: 66 Procedure Date: 04/20/2022 Procedure Type: Transthoracic Echocardiogram Location: OP Height: 175.26 cm Weight: 142.88 kg BSA: 2.51 m2 Heart Rate: bpm Stake Driver: ANDREAS Referring MD: Vincent Mckee MD Seat Builder: Efren Hodgson MD Symptoms: R07.2 - Precordial pain Study Quality: Adequate ECG Rhythm: Sinus Conclusions: - 1. Normal LV systolic function with impaired relaxation filling pattern 2. Normal cardiac valvular Doppler 3. Normal RV systolic pressure 4. No gross pericardial effusion Findings Left Ventricle Normal left ventricular size, thickness, and systolic function. The visually estimated ejection fraction is between 60-65%. Spectral Doppler is indicative of an impaired relaxation filling pattern. E/E prime ratio is between 8 and 15 consistent with indeterminate filling pressures. Peak GLS is - 18.1%, within normal limits. Right Ventricle Normal right ventricular cavity size and systolic function. Atria Both atria are normal in size. Interatrial shunt cannot be excluded. Aortic Valve There is mild calcification of the aortic valve. There is mild thickening of the aortic valve. There is no aortic valve stenosis. There is no aortic valve regurgitation. Mitral Valve There is mild anterior mitral leaflet thickening. There is trace mitral valve regurgitation. There is no mitral valve stenosis. Pulmonic Valve The pulmonic valve was not well visualized. Tricuspid Valve Likely normal tricuspid valve structure and function. There is mild tricuspid valve regurgitation. The right ventricular systolic pressure is normal. The right ventricular systolic pressure is 27 mmHg. Normal right atrial pressure. There is no evidence of pulmonary hypertension. Great Vessels All visible segments of the aorta are normal in size. The pulmonary artery was not well visualized. Venous The inferior vena cava is normal in size and collapses greater than 50% with inspiration. Pericardium/Pleural There is no evidence of pericardial effusion. Prior Study Comparison No significant change compared to prior study dated: 04/09/2016. Measurements 2D Linear Measurements IVSd: 1.01 0.6-0.9/0.6-1.0 cm LVIDd: 5.62 3.9-5.3/4.2-5.9 cm LVIDd Index: 2.24 2.4-3.2/2.2-3.1 cm/m2 LVIDs: 4.01 2.0-3.6 cm LVPWd: 1.28 0.7-1.1 cm LA Diam: 4.10 2.7-3.8/3.0-4.0 cm LAIDs Index: 1.63 1.5-2.3 cm/m2 LV Mass: 330.11 67-162/88-224 g LV Mass Index: 131.52 43-95/49-115 g/m2 LVOT Diam: 2.30 3.0+(-)1.3 cm 2D Systolic Function EF 4C: 63.20 >55% EF 2C: 62.10 >55% EF BiP: 62.50 >55% Mitral Valve MV Pk E: 0.86 MV PK A: 0.99 MV Decel Time: 242.00 E/A: 0.90 E'Lateral: 8.92 E'Medial: 7.40 E/E' Med: 11.60 E/E' Lat: 9.60 PHT: 71.00 MVA PHT: 3.10 Decel Williamson: 3.54 Aortic Valve AoV Pk Vasquez: 1.71 AoV Mn Vasquez: 1.13 AoV VTI: 0.35 AoV Pk Grad: 12.00 Aov Mn Grad: 6.00 ERIC Cont.VTI: 3.16 LVOT LVOT Pk Vasquez: 1.17 LVOT Mn Vasquez: 0.82 LVOT VTI: 0.27 LVOT Pk Grad: 5.00 LVOT Mn Grad: 3.00 LVOT Diam: 2.30 LVOT Area: 4.15 Diastolic Function MV Pk E: 0.86 MV Pk A: 0.99 E/A: 0.90 E'Medial: 7.40 E/E' Med: 11.60 E' Laterial: 8.92 E/E' Lat: 9.60 Right Ventricle TAPSE (mm): 24.80 TVS' Vasquez: 14.30 Tricuspid Valve TR Pk Vasquez: 2.16 TR Pk Grad: 19.00 RA Press: 8.00 RVSP: 27.00 Great Vessels Aorta Sinus of Valsalva: 3.30 2.0-3.5 cm Ao Asc: 3.50 2.1-3.4 cm Pulmonary Veins Pulm Vein S/D 1.20 Pulmonary Valve PV Pk Vasquez: 0.95 Peak PV Grad: 4.00 Updated in Other Vendor System with Status of Final Efren Hodgson MD electronically signed on 04/21/2022 9:01:55 AM with status of Final
== END ==
LOC: HO.CARD 07:12
PROVIDERS: Visit Provider Internal Medicine
DX: R07.2 Precordial pain (principal)
CPT/HCPCS: 93306; 93356

== ENCOUNTER 2022-05-30 09:02 | Outpatient (REF) | payer MEDICARE, SELFPAY ==
[2022-05-30 10:13] LABS: Anion Gap 14 (12-20); Blood Urea Nitrogen 13 mg/dL (9-16); Carbon Dioxide 24 mmol/L (22-29); Chloride 107 mmol/L (96-108); Estimated Glomerular Filt Rate > 60; Glucose Random 105 mg/dL (60-115); Sodium 141 mmol/L (135-145)
== END 2022-05-30 09:03 | disposition home or self-care (01) ==
LOC: HO.LAB 09:02
PROVIDERS: PCP Internal Medicine; Visit Provider Internal Medicine
DX: R07.2 Precordial pain (principal)
CPT/HCPCS: 36415; 80048

== ENCOUNTER 2022-06-21 09:53 | Outpatient (REF) | payer MEDICARE, SELFPAY ==
--- NOTE | ~2022-06-21 | XR_ITS ---
EXAMINATION: XR THORACOLUMBAR SPINE CLINICAL INFORMATION: Dorsalgia. COMPARISON: 02/22/2012 TECHNIQUE: Three-view thoracic spine. FINDINGS: No vertebral body fracture is appreciated. There is multilevel degenerative spurring with some regions of bony bridging within the upper and mid thoracic vertebral bodies. The pedicles appear intact. There is some mild disc space narrowing seen at multiple levels. No destructive bony lesions are appreciated. No paraspinal line bulge is seen. XR/XR thoracic spine 2V IMPRESSION: Degenerative change within the thoracic spine without evidence of acute fracture or destructive bony lesions.
== END 2022-06-21 09:54 | disposition home or self-care (01) ==
LOC: HO.XRAY 09:53
PROVIDERS: PCP Internal Medicine; Visit Provider Internal Medicine
DX: M54.9 Dorsalgia, unspecified (principal)
CPT/HCPCS: 72070

== ENCOUNTER → 2022-07-28 13:55 | Outpatient (BNVA) | payer MEDICARE, SELFPAY | PROVIDERS: PCP Internal Medicine; Referring Provider Internal Medicine; Visit Provider Nurse Practitioner Family | DX: R06.02 Shortness of breath (principal); R07.2 Precordial pain; I25.10 Atherosclerotic heart disease of native coronary artery without angina pectoris; I10 Essential (primary) hypertension; E78.5 Hyperlipidemia, unspecified; M54.9 Dorsalgia, unspecified | CPT/HCPCS: 99212 ==

== ENCOUNTER → 2022-08-11 11:00 | Outpatient (BNVA) | payer MEDICARE, SELFPAY | PROVIDERS: PCP Internal Medicine; Visit Provider Physician Assistant | DX: K52.9 Noninfective gastroenteritis and colitis, unspecified (principal); K76.0 Fatty (change of) liver, not elsewhere classified; K57.30 Diverticulosis of large intestine without perforation or abscess without bleeding; K44.9 Diaphragmatic hernia without obstruction or gangrene | CPT/HCPCS: 99212 ==

== ENCOUNTER 2022-08-12 06:01 | Outpatient (REF) | payer MEDICARE, SELFPAY ==
[2022-08-12 06:07] LABS: MANUAL DIFF FLAG NO
[2022-08-12 07:25] LABS: Basophils Absolute Auto 0.1 X10*3/uL (0.0-0.2); Basophils Percent Auto 0.7 % (0-2); Eosinophils Absolute Auto 0.3 X10*3/uL (0.0-0.4); Eosinophils Percent Auto 3.4 % (0-4); Hematocrit 42.1 % (37.0-47.0); Hemoglobin 13.4 g/dl (12.0-16.0); Imm Gran Abs Auto 0.03 X10*3/uL (0.00-0.03); Imm Gran Pct Auto 0.4 % (0.0-0.4); Lymphocytes Absolute Auto 2.7 X10*3/uL (1.2-4.9); Lymphocytes Percent Auto 33.7 % (20-40); Mean Corpuscular HGB Conc 31.8 g/dl (31.0-35.0); Mean Corpuscular Hemoglobin 29.5 pg (27.0-33.0); Mean Corpuscular Volume 92.5 fL (80.0-98.0); Mean Platelet Volume 9.9 fL (9.4-12.3); Monocytes Absolute Auto 0.5 X10*3/uL (0.1-1.2); Monocytes Percent Auto 6.7 % (2-11); Neutrophils Absolute Auto 4.4 x10*3/uL (2.0-8.3); Neutrophils Percent Auto 55.1 % (45-73); Platelet Count 239 X10*3/uL (160-400); Red Blood Count 4.55 X10*6/uL (4.20-5.50); Red Cell Distribution Width 12.7 % (11.0-16.0)
[2022-08-12 07:33] LABS: Estimated Average Glucose 114 mg/dL; Hemoglobin A1c % 5.6 %
[2022-08-12 07:45] LABS: Alanine Aminotransferase 18 U/L (0-31); Albumin Level 4.1 g/dL (3.5-5.0); Alkaline Phosphatase 93 U/L (39-117); Anion Gap 17 (12-20); Aspartate Amino Transferase 20 U/L (5-31); Bilirubin Total 0.7 mg/dL (0.0-1.0); Blood Urea Nitrogen 19 mg/dL (9-16); Calcium 9.3 mg/dL (8.4-10.2); Carbon Dioxide 25 mmol/L (22-29); Chloride 104 mmol/L (96-108); Cholesterol 195 mg/dL; Estimated Glomerular Filt Rate 59; Glucose Random 101 mg/dL (60-115); HDL Cholesterol 40 mg/dL; LDL Cholesterol Calculated 115 mg/dl; Potassium 4.3 mmol/L (3.3-5.1); Sodium 142 mmol/L (135-145); Total Protein 6.7 g/dL (6.5-8.0); Triglycerides 201 mg/dL
[2022-08-12 08:07] LABS: Thyroid Stimulating Hormone 0.09 uIU/mL (0.32-4.0)
== END 2022-08-12 06:02 | disposition home or self-care (01) ==
LOC: HO.LAB 06:01
PROVIDERS: PCP Internal Medicine; Visit Provider Physician Assistant
DX: K52.9 Noninfective gastroenteritis and colitis, unspecified (principal); K44.9 Diaphragmatic hernia without obstruction or gangrene; K57.30 Diverticulosis of large intestine without perforation or abscess without bleeding; K76.0 Fatty (change of) liver, not elsewhere classified; E03.9 Hypothyroidism, unspecified
CPT/HCPCS: 36415; 80053; 80061; 83036; 84443; 85025

== ENCOUNTER 2022-09-20 10:09 | Outpatient (REF) | payer MEDICARE, SELFPAY ==
--- NOTE | ~2022-09-20 | US_ITS ---
EXAMINATION: US ABDOMEN LIMITED CLINICAL INFORMATION: Fatty change of liver, not elsewhere classified. COMPARISON: Ultrasound abdomen complete 09/22/2020 and 11/04/2010. CT abdomen and pelvis 07/19/2018. TECHNIQUE: Real-time imaging of the right upper quadrant abdominal viscera. FINDINGS: PANCREAS: Body the pancreas is normal. The head and tail are not well visualized. LIVER: Liver echotexture is increased suggestive of fatty infiltration.. The liver is slightly enlarged, right lobe measuring 20.7 cm in length. There is a hypoechoic area adjacent to the gallbladder, characteristic location of focal fatty sparing. The liver contour is normal. No other focal hepatic lesion. There is no intrahepatic biliary duct dilatation seen. GALLBLADDER: Normal The gallbladder is physiologically distended without evidence of stones, sludge, polyps, or pericholecystic fluid. COMMON BILE DUCT: Normal in caliber measuring 0.5 cm in diameter. RIGHT KIDNEY: Normal. No hydronephrosis. No renal calculi or focal parenchymal lesions. The kidney measures 12.1 cm in maximum dimension. FREE FLUID: None. US/US abdomen limited IMPRESSION: Enlarged fatty liver. Limited visualization pancreas.
== END 2022-09-20 10:10 | disposition home or self-care (01) ==
LOC: HO.US 10:09
PROVIDERS: PCP Internal Medicine; Visit Provider Physician Assistant
DX: K76.0 Fatty (change of) liver, not elsewhere classified (principal)
CPT/HCPCS: 76705

== ENCOUNTER 2022-10-03 08:47 | Outpatient (REF) | payer MEDICARE, SELFPAY ==
--- NOTE | ~2022-10-03 | FL_ITS ---
EXAMINATION: FL BARIUM SWALLOW CLINICAL INFORMATION: Nausea without vomiting COMPARISON: None TECHNIQUE: Barium swallow examination is performed using fluoroscopic evaluation in addition to multiple fluoroscopic spot views. The patient is imaged both upright and prone and using both thick and thin sulfate along with effervescent granules. Fluoroscopy time: 2.9 minutes DAP: 40.6 Gycm2 Images: 48 FINDINGS: Following oral administration of thick barium and barium-coated turkey in upright view, there is normal propagation of bolus from the oral cavity through the pharynx, esophagus into stomach without obstruction or narrowing. No laryngeal penetration, aspiration or extrinsic impression seen. On oral administration of barium tablet, there is normal passage seen through the pharynx, esophagus into stomach without obstruction. On placing patient prone lying, an oral administration of thin barium, there is normal distention of the entire esophagus without intraluminal filling defect or narrowing. No gastroesophageal reflux or hiatal hernia seen. FL/FL barium swallow IMPRESSION: Unremarkable barium swallow exam in upright and lying position with various consistencies of barium and a barium tablet.
== END 2022-10-03 08:48 | disposition home or self-care (01) ==
LOC: HO.XRAY 08:47
PROVIDERS: PCP Internal Medicine; Visit Provider Physician Assistant
DX: K76.0 Fatty (change of) liver, not elsewhere classified (principal)
CPT/HCPCS: 74220

== ENCOUNTER 2022-10-25 11:16 | Outpatient (REF) | payer MEDICARE, SELFPAY ==
[2022-10-25 11:50] LABS: COVID-19 Test Negative (Negative); IDNOW Serial# 16C4AD1C
== END 2022-10-25 11:17 | disposition home or self-care (01) ==
LOC: HO.LAB 11:16
PROVIDERS: PCP Internal Medicine; Visit Provider Internal Medicine
DX: Z20.822 Contact with and (suspected) exposure to COVID-19 (principal)
CPT/HCPCS: 87635; C9803

== ENCOUNTER 2022-11-04 07:19 | Outpatient (REF) | payer MEDICARE, SELFPAY ==
--- NOTE | ~2022-11-04 | MM_ITS ---
EXAMINATION: MM SCREENING DIGITAL BREAST TOMOSYNTHESIS, BILATERAL CLINICAL INFORMATION: Screening. Asymptomatic. The lifetime risk of breast cancer based on the Tyrer-Cuzick Model is 10%. COMPARISON: Mammography: 11/01/2021, 09/11/2020, 09/06/2019 TECHNIQUE: Digital breast tomosynthesis is performed in both the craniocaudal and mediolateral oblique views along with computer-aided detection (CAD). Synthesized 2D images are generated from the tomosynthesis. Additional bilateral CC and right MLO views are provided. FINDINGS: The breasts are almost entirely fatty (ACR BI-RADS breast composition Category a). There are no significant masses, abnormal calcifications, or other abnormalities. Stromal markings are similar to prior studies and there is no developing density or architectural abnormality. The axilla and skin contours are unremarkable. No significant changes from prior exams. MM/MM tomosynthesis screening BI IMPRESSION: No mammographic evidence of malignancy. ASSESSMENT: BI-RADS 1: Negative RECOMMENDATION: Routine annual mammography screening. This patient's information was entered into a reminder system with a target due date for their next mammogram.
== END 2022-11-04 07:20 | disposition home or self-care (01) ==
LOC: HO.MAMMO 07:19
PROVIDERS: PCP Internal Medicine; Visit Provider Internal Medicine
DX: Z12.31 Encounter for screening mammogram for malignant neoplasm of breast (principal)
CPT/HCPCS: 77063; 77067

== ENCOUNTER 2023-01-09 11:57 | Outpatient (REF) | payer MEDICARE, SELFPAY ==
[2023-01-09 12:41] LABS: COVID-19 Test Negative (Negative); IDNOW Serial# BCCEAD1C
== END 2023-01-09 11:58 | disposition home or self-care (01) ==
LOC: HO.LAB 11:57
PROVIDERS: PCP Internal Medicine; Referring Provider Internal Medicine; Visit Provider Internal Medicine
DX: Z20.822 Contact with and (suspected) exposure to COVID-19 (principal)
CPT/HCPCS: 87635; C9803

== ENCOUNTER 2023-02-06 06:07 | Outpatient (REF) | payer MEDICARE, SELFPAY ==
[2023-02-06 08:24] LABS: Thyroid Stimulating Hormone 9.28 uIU/mL (0.32-4.0)
== END 2023-02-06 06:08 | disposition home or self-care (01) ==
LOC: HO.LAB 06:07
PROVIDERS: PCP Internal Medicine; Visit Provider Internal Medicine
DX: E03.9 Hypothyroidism, unspecified (principal); R05.9 Cough, unspecified
CPT/HCPCS: 36415; 84443

== ENCOUNTER 2023-03-24 08:00 | Outpatient (RCR) | payer MEDICARE, SELFPAY ==
[2023-03-15 07:50] VITALS: BP 124/61; PULSE 67; O2SAT 93
--- NOTE | 2023-03-15 10:54 | MHC.PT.EP ---
[facility] [place] Office [place] Office [place] Office [address] Niurka Palm [address] [phone] F: [phone] F: [phone] F: [phone] F: [phone] Physical Therapy Plan of Care Date of Evaluation: Date of Surgery: Diagnosis: DORSALGIA Assessment: 67 YO FEMALE REF TO PT FOR DORSALGIA , PROGRESSIVE x 1 YEAR W/O TRAUMA. 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 OBJECTIVELY, (+) STRENGTH DEFICITS IN POST RC/ SCAP/THOR REGION; DECR POSTURAL AWARENESS W INCR THOR KYPH, FHP; (+) ANT CHAIN SOFT TISSUE RESTRICTION ; (+) LUMBOPELVIC ASYMM, SOFT TISSUE RESTRICTION, AND INTERM PAIN IN Rt SCAP AREA TO THORACIC SPINE. THE Pt DENIES RADICULAR SXS. SHE DISPLAYS HABITUAL CERV SB Rt, LAT TRUNK FLEX LEFT IN SITTING AND INCR LAT WT SHIFTING W HER GAIT MECH. THE Pt WOULD BENEFIT FROM PT TO ADDRESS THE ABOVE FINDINGS, IMPROVE POSTURAL AWARENESS, DEV A HEP, AND SELF-SX MGMT TECHN TO REDUCE TENSION ON HER THORACIC REGION. Frequency and Duration: The patient will be seen 2 x WK x 5 WKS Short Term Goals: *DECR THORACIC/ Rt SCAP PAIN TO 2-3/10 *Pt IMPROVE SELF-CORRECTION OF HER POSTURE IN VARIOUS POSES BY 50% *Pt DEMON ADEQUATE ACTIVE SCAP RETRACTION/ DEPRESSION Theology Teacher Goals: *Pt INDEP W HEP AND SELF-SX MTMT TECHN *Pt RESUME REG ADLs AND FITNESS ROUTINE *AIDEN SH / POST RC STRENGTH IMPROVED BY 1/2-1 GRADE *Pt DEMON PROPER BODY MECH W 3:3 SIMUL ADLs Treatment Plan: Modalities to reduce pain, spasms and effusion. Manual therapy to restore motion and function. Therapeutic exercise to improve strength and flexibility. Neuromuscular re-education for posture and balance. Therapeutic activities to return to functional activities of daily living. Electronically signed by: RJ GAXIOLA,PT Please sign and return to therapist. Thank you for your referral.
--- NOTE | 2023-05-04 07:54 | MHC.PT.DC ---
[facility] [place] Office [place] Office [place] Office [address] Niurka Palm [address] [phone] F: [phone] F: [phone] F: [phone] F: [phone] Physical Therapy Discharge Report Diagnosis: DORSALGIA Date of Surgery: Date of Evaluation: 03/15/23 Date of Discharge: 03/24/23 Treatments to Date: 3 Cancellations to Date: 4 No Shows to Date: 0 Discharge Status: Achieved Goals Improved Function Independent with HEP Insurance Declined Tx Discharge Summary: THE Pt HAS PROGRESSED NICELY IN PT FOR HER DORSALGIA AND FELT READY FOR D/C WITH HER HEP. Electronically signed by: RJ GAXIOLA,PT Please sign and return to therapist. Thank you for your referral.
== END 2023-05-04 07:55 | disposition home or self-care (01) ==
LOC: HO.PT 08:00
PROVIDERS: PCP Internal Medicine; Visit Provider Internal Medicine
DX: M54.9 Dorsalgia, unspecified (principal)
CPT/HCPCS: 97110; 97162

== ENCOUNTER 2023-04-25 10:39 | Outpatient (REF) | payer MEDICARE, SELFPAY ==
--- NOTE | ~2023-04-25 | XR_ITS ---
EXAMINATION: XR LUMBOSACRAL SPINE CLINICAL INFORMATION: Back pain. COMPARISON: Radiographs dated 05/13/2009. TECHNIQUE: AP and lateral views of the lumbar spine and lateral view of the lumbosacral junction. FINDINGS: There is bony demineralization. There is moderate disc space narrowing at L4-L5 and L5-S1. The remaining disc spaces are well-maintained. No acute fracture or spondylolisthesis is seen. This multi-level mild thoracolumbar spondylosis. There is facet arthropathy extending from L3-L4 through L5-S1. The paravertebral soft tissues are unremarkable. XR/XR lumbar spine 2-3V IMPRESSION: 1. There is moderate degenerative disc disease at L4-L5 and L5-S1. 2. There is multi-level mild thoracolumbar spondylosis. 3. There is facet arthropathy extending from L3-L4 through L5-S1.
== END 2023-04-25 10:40 | disposition home or self-care (01) ==
LOC: HO.XRAY 10:39
PROVIDERS: PCP Internal Medicine; Visit Provider Internal Medicine
DX: M54.9 Dorsalgia, unspecified (principal)
CPT/HCPCS: 72100

== ENCOUNTER 2023-08-14 06:00 | Outpatient (REF) | payer MEDICARE, SELFPAY ==
[2023-08-14 06:13] LABS: MANUAL DIFF FLAG NO
[2023-08-14 07:24] LABS: Basophils Percent Auto 0.6 % (0-2); Eosinophils Absolute Auto 0.2 X10*3/uL (0.0-0.4); Eosinophils Percent Auto 2.7 % (0-4); Hematocrit 43.9 % (37.0-47.0); Hemoglobin 14.3 g/dl (12.0-16.0); Imm Gran Abs Auto 0.01 X10*3/uL (0.00-0.03); Imm Gran Pct Auto 0.1 % (0.0-0.4); Lymphocytes Absolute Auto 2.4 X10*3/uL (1.2-4.9); Lymphocytes Percent Auto 34.2 % (20-40); Mean Corpuscular HGB Conc 32.6 g/dl (31.0-35.0); Mean Corpuscular Volume 95.2 fL (80.0-98.0); Mean Platelet Volume 10.1 fL (9.4-12.3); Monocytes Absolute Auto 0.5 X10*3/uL (0.1-1.2); Monocytes Percent Auto 7.1 % (2-11); Neutrophils Absolute Auto 3.9 x10*3/uL (2.0-8.3); Neutrophils Percent Auto 55.3 % (45-73); Platelet Count 235 X10*3/uL (160-400); Red Blood Count 4.61 X10*6/uL (4.20-5.50); Red Cell Distribution Width 13.2 % (11.0-16.0); White Blood Count 7.1 X10*3/uL (4.8-10.8)
[2023-08-14 08:25] LABS: Alanine Aminotransferase 23 U/L (0-31); Albumin Level 4.3 g/dL (3.5-5.0); Alkaline Phosphatase 81 U/L (39-117); Anion Gap 15 (12-20); Aspartate Amino Transferase 24 U/L (5-31); Bilirubin Total 0.6 mg/dL (0.0-1.0); Blood Urea Nitrogen 17 mg/dL (9-16); Calcium 9.7 mg/dL (8.4-10.2); Carbon Dioxide 22 mmol/L (22-29); Chloride 108 mmol/L (96-108); Cholesterol 213 mg/dL (<200); Estimated Glomerular Filt Rate > 60; Glucose Fasting 105 mg/dL (60-99); HDL Cholesterol 43 mg/dL (>40); LDL Cholesterol Calculated 136 mg/dL (<100); Sodium 141 mmol/L (135-145); Thyroid Stimulating Hormone 0.81 uIU/mL (0.32-4.0); Total Protein 7.5 g/dL (6.5-8.0); Triglycerides 171 mg/dL (<150)
== END 2023-08-14 06:01 | disposition home or self-care (01) ==
LOC: HO.LAB 06:00
PROVIDERS: PCP Internal Medicine; Visit Provider Internal Medicine
DX: E03.9 Hypothyroidism, unspecified (principal); D64.9 Anemia, unspecified; E78.5 Hyperlipidemia, unspecified; N28.9 Disorder of kidney and ureter, unspecified
CPT/HCPCS: 36415; 80053; 80061; 84443; 85025

== ENCOUNTER 2023-08-21 11:11 | Outpatient (AMB) | payer MEDICARE, SELFPAY ==
[2023-08-21 11:15] VITALS: PULSE 68; O2SAT 99
--- NOTE | 2023-08-21 11:15 | MHC.PC.OV ---
Vital Signs 08/21/23 11:15 Height 5 ft 9 in BMI Reason not done Patient refused/unable Blood Pressure Location Lt brachial Position Sitting Pulse 68 Pulse Source Pulse Oximeter Pulse Oximetry (%) 99 Oxygen Delivery Method Room Air Intake Visit Reasons: 6 month f/u Allergies bee pollen Allergy (Severe, Verified 08/21/23 11:16) Swelling ciprofloxacin [From Cipro] Allergy (Severe, Verified 08/21/23 11:16) RASH-ITCHING Penicillins Allergy (Intermediate, Verified 08/21/23 11:16) Rash Sulfa (Sulfonamide Antibiotics) [SULFA (SULFONAMIDE ANTIBIOTICS)] Allergy (Intermediate, Verified 08/21/23 11:16) HIVES Medication List - Last Reconciled 08/21/23 by Ilia Stanton MD albuterol sulfate 90 mcg/actuation 2 puffs inhalation Q4-6H PRN atenolol 50 mg PO DAILY furosemide 20 mg PO DAILY 90 days levothyroxine 175 mcg PO DAILY lovastatin 20 mg PO DAILY omeprazole 20 mg PO DAILY tizanidine 4 mg PO Q8H PRN tramadol 50 mg PO Q6H PRN Tobacco use date assessed: 04/25/23 Fall risk assessment: No Falls in past year Last assessed Fall Risk: 08/21/23 Dental Screening Dental Screen Date: 08/21/23 Did you have a dental visit in the last 12 months?: Yes Did you have a dental problem in the last 6 months where you did not have access to dental care?: No Was dental information given to patient?: Patient has dentist HPI 6 month f/u HPI Details hyperlipidemia hypothyroidism and htn on rx; doing well and compliant [facility] Medical History Hiatal hernia Peptic ulcer Hx of simple renal cyst History of fatty infiltration of liver Elevated cholesterol Thyroid disease HTN (hypertension) Surgical History History of endoscopy History of colonoscopy History of tonsillectomy and adenoidectomy History of bilateral cataract extraction Family History Father CVD (cardiovascular disease) Past heart attack Mother Breast cancer Bone metastases Brother Past heart attack Social History (Reviewed 08/21/23 @ 11:16 by YAYO Harper Household Members: None Housing: Apartment Are you a primary child care education coordinator to a significant other at home: No Do you presently have visiting nurse or other home services: No Alcohol intake: never Patient Tobacco Use Status: Never used Tobacco e-Cigarette/Vaping Use: Never Used Second Hand Smoke Exposure: No service: No Current occupational status: retired Cognitive needs: No Hearing needs: No Vision needs: No Questionnaire PHQ-9 Over the last 2 weeks, how often have you been bothered by any of the following problems? Depression Screening Interpretation: Positive Depression Screening Done: Yes Source: Developed by Drs. Nura Ash, Shelly Dickey, Berto Schmitt and colleagues, with an educational jermaine from [employer]. Thrive Questionnaire Date Thrive assessed: 12/09/22 SOWMYA-7 AMB Questionnaire SOWMYA-7 Date SOWMYA - 7 assessed: 12/09/22 Source: Developed by Drs. Nura Ash, Shelly Dickey, Berto Schmitt and colleagues, with an educational jermaine from [employer]. Review of Systems Const Denies chills, Denies headache(s) and Denies weight loss ENT Denies headache(s) Card Denies chest pain, Denies syncope, Denies irregular heart rhythm and Denies dyspnea Resp Denies chest congestion, Denies cough and Denies dyspnea GI Denies abdominal pain, Denies change in stool character, Denies nausea and Denies vomiting Musc Denies deformity and Denies joint swelling Neuro Denies syncope and Denies headache(s) Physical exam (Primary Care) Vital Signs: Last Vital Signs Pulse 68 08/21/23 11:15 Pulse Ox 99 08/21/23 11:15 Oxygen Delivery Method Room Air 08/21/23 11:15 Tobacco/Smoking Status: Tobacco use Status Tobacco use date assessed 04/25/23 08/21/23 11:17 Patient Tobacco Use Status Never used Tobacco 08/21/23 11:17 e-Cigarette/Vaping Use Never Used 08/21/23 11:17 Depression Screening Interpretation: Positive Thrive Assessment: Date of Thrive Assessment Date Thrive assessed 12/09/22 08/21/23 11:17 Const General: cooperative, comfortable, no acute distress and alert Neck Neck: Yes no lymphadenopathy Thyroid: Thyroid normal Resp Effort & Inspection: normal respiratory effort Auscultation: clear to auscultation bilaterally Percussion: percussion normal Cardio Jugular venous distension: no JVD Palpation: normal PMI Rate: regular rate Rhythm: regular rhythm Heart sounds: S1 normal heart sound present and S2 normal heart sound present GI Inspection: Yes normal to inspection Palpation (GI): No hepatosplenomegaly present Skin General skin exam: no rashes or lesions noted Extrem General: Yes no clubbing, cyanosis or edema Assessment and Plan Assessment & Plan (1) Other and unspecified hyperlipidemia: Code(s): E78.5 - Hyperlipidemia, unspecified Plan: stable; same rx (2) Essential hypertension: Code(s): I10 - Essential (primary) hypertension Plan: stable; same rx (3) Hypothyroidism: Code(s): E03.9 - Hypothyroidism, unspecified Plan: stable; same rx Orders: Orders Lipid Panel Today E78.5 - Hyperlipidemia, unspecified Thyroid Stimulating Hormone Today E03.9 - Hypothyroidism, unspecified Complete Blood Count Auto Diff Today D64.9 - Anemia, unspecified Comprehensive [place]. Panel Fast Today N28.9 - Disorder of kidney and ureter, unspecified Medications: Changed From omeprazole 40 mg (2 x 20 mg) PO DAILY 180 caps 2RF 90 days To omeprazole 20 mg PO DAILY Coding Level of Care Code Est Pt Level 4 (39822) Diagnoses Other and unspecified hyperlipidemia E78.5 Essential hypertension I10 Hypothyroidism E03.9
== END 2023-08-21 11:52 | disposition home or self-care (01) ==
PROVIDERS: Visit Provider Internal Medicine
DX: E78.5 Hyperlipidemia, unspecified (principal); I10 Essential (primary) hypertension; E03.9 Hypothyroidism, unspecified
CPT/HCPCS: 99214

== ENCOUNTER 2023-09-01 07:57 | Outpatient (REF) | payer MEDICARE, SELFPAY ==
[2023-09-01 11:59] LABS: CT PCR NOT DETECTED (Not Detect.); NG PCR NOT DETECTED (Not Detect.)
[2023-09-02 13:32] LABS: BV Int Neg Control Negative (Negative); BV Int Pos Control Positive (Positive)
[2023-09-05 10:18] LABS: HPV mRNA E6/E7 rflx Not Detected (Not Detected)
== END 2023-09-01 07:58 | disposition home or self-care (01) ==
LOC: HO.LNP 07:57
PROVIDERS: PCP Internal Medicine; Visit Provider Advanced Practice Midwife
DX: R10.2 Pelvic and perineal pain (principal); R14.0 Abdominal distension (gaseous)
CPT/HCPCS: 0353U; 81002; 87480; 87510; 87624; 87660; 88142; 99202

== ENCOUNTER 2023-09-01 07:57 | Outpatient (AMB) | payer MEDICARE, SELFPAY ==
[2023-09-01 08:04] VITALS: BP 118/70; BMI 44.3
--- NOTE | 2023-09-01 08:04 | MHC.OFFVIS ---
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 Scribed for YIFAN Gutierrez by Alyssa Tellez certified medical asst, on 09/01/2023 at 8:15 am EST Machine Pie Maker Required: No Information Interpreted: non-clinical & clinical Ground Crewman: Ground Crewman Present (Carlota MUELLER) Accompanied by: Self / Same As Patient Allergies bee pollen Allergy (Severe, Verified 09/01/23 08:09) Swelling ciprofloxacin [From Cipro] Allergy (Severe, Verified 09/01/23 08:09) RASH-ITCHING Penicillins Allergy (Intermediate, Verified 09/01/23 08:09) Rash Sulfa (Sulfonamide Antibiotics) [SULFA (SULFONAMIDE ANTIBIOTICS)] Allergy (Intermediate, Verified 09/01/23 08:09) HIVES Post menopausal: Yes HPI HPI Comments History of Present Illness Details She presents as a new patient with complaints of pelvic pain/cramping and bloating. Reports the pain feels like period cramps. Takes Tylenol for pain relief. Reports that when she sits down, she feels pressure in her vaginal area. Not sexually active. Denies any urinary issues. Hx of frequent UTI in the past, stays well hydrated and drinks cranberry juice daily. Stays active with walking daily. Denies discharge and odors. Denies PMB. Has not had a menses since age 34. Unsure of last pap smear, has not had cheesemaker helper/breast exam in years. Denies hx of abnormal pap smears. [facility] Medical History Hiatal hernia Peptic ulcer Hx of simple renal cyst History of fatty infiltration of liver Elevated cholesterol Thyroid disease HTN (hypertension) Surgical History History of endoscopy History of colonoscopy History of tonsillectomy and adenoidectomy History of bilateral cataract extraction Family History Father CVD (cardiovascular disease) Past heart attack Mother Breast cancer Bone metastases Brother Past heart attack Social History Household Members: None Housing: Apartment Are you a primary emergency care tech to a significant other at home: No Do you presently have visiting nurse or other home services: No Alcohol intake: never Patient Tobacco Use Status: Never used Tobacco e-Cigarette/Vaping Use: Never Used Second Hand Smoke Exposure: No service: No Current occupational status: retired Cognitive needs: No Hearing needs: No Vision needs: No Female Reproductive History Menstrual Menopause type: natural Review of Systems Const All systems reviewed & are unremarkable except as noted in HPI and below Reports pelvic pain Physical Exam Vital Signs: Last Vital Signs BP 118/70 09/01/23 08:04 BMI result Body Mass Index 44.3 Const General: cooperative, no acute distress, well developed and alert GI Inspection: Yes normal to inspection and Yes obesity External Female Exam: normal external appearance Speculum Exam - Vagina: normal appearance of the vagina and vagina atrophic (moderate to severe) Speculum Exam - Cervix: normal appearance of the cervix (bled with pap smear) Bimanual exam- vagina & uterus: normal bimanual exam, uterine size normal, uterine shape normal and non-tender Bimanual Exam- Adnexa, other: normal adnexae and no masses Results AMB Urinalysis Dipstick UR Leukocytes Negative Last Edit by Carlota Hernandez CMA on 09/01/23 08:43 UR Nitrite Negative Last Edit by Carlota Hernandez CMA on 09/01/23 08:43 UR Urobilinogen Normal Last Edit by Carlota Hernandez CMA on 09/01/23 08:43 UR Protein Negative Last Edit by Carlota Hernandez CMA on 09/01/23 08:43 UR Ph 5.5 Last Edit by Carlota Hernandez CMA on 09/01/23 08:43 UR Blood Negative Last Edit by Carlota Hernandez CMA on 09/01/23 08:43 UR Specific [place] 1.015 Last Edit by Carlota Hernandez CMA on 09/01/23 08:43 UR Ketone Negative Last Edit by Carlota Hernandez CMA on 09/01/23 08:43 UR Bilirubin Negative Last Edit by Carlota Hernandez CMA on 09/01/23 08:43 UR Glucose Negative Last Edit by Carlota Hernandez CMA on 09/01/23 08:43 Results Reviewed Results Reviewed: Laboratory Last Values Urine pH (Clinic) 5.5 09/01/23 08:38 Specific [place] (Clinic) 1.015 09/01/23 08:38 Ur Protein (Clinic) Negative 09/01/23 08:38 Ur Ketones (Clinic) Negative 09/01/23 08:38 Urine Blood (Clinic) Negative 09/01/23 08:38 Urine Nitrite Negative 09/01/23 08:38 Urine Bilirubin (Clinic) Negative 09/01/23 08:38 Urobilinogen (Clinic) Normal 09/01/23 08:38 Leukocyte Esterase (Clinic) Negative 09/01/23 08:38 Urine Glucose (Clinic) Negative 09/01/23 08:38 Assessment & Plan Assessment & Plan (1) Pelvic pain in female: Code(s): R10.2 - Pelvic and perineal pain Plan: Discussed work up including pelvic US. She agrees to have work up done. Pelvic US ordered. Will await results and treat accordingly. Instructed to go to ER with any increased pain. RTO for test results and breast exam. (2) Abdominal bloating: Code(s): R14.0 - Abdominal distension (gaseous) Orders: Orders US pelvic and transvaginal Today R10.2 - Pelvic and perineal pain AMB Urinalysis Dipstick Today R10.2 - Pelvic and perineal pain Pap Smear Today R10.2 - Pelvic and perineal pain Bacterial Vaginosis Panel Today R10.2 - Pelvic and perineal pain CT NG by PCR Today R10.2 - Pelvic and perineal pain Coding Level of Care Code New Pt Level 3 (55755) Diagnoses Pelvic pain in female R10.2 Abdominal bloating R14.0
== END 2023-09-01 08:29 | disposition home or self-care (01) ==
PROVIDERS: PCP Internal Medicine; Visit Provider Advanced Practice Midwife
DX: R10.2 Pelvic and perineal pain (principal); R14.0 Abdominal distension (gaseous)
CPT/HCPCS: 99203

== ENCOUNTER 2023-09-29 10:11 | Outpatient (REF) | payer MEDICARE, SELFPAY ==
--- NOTE | ~2023-09-29 | US_ITS ---
EXAMINATION: US PELVIS CLINICAL INFORMATION: Pelvic and perineal pain. COMPARISON: CT abdomen/pelvis 2018 and pelvic ultrasound 12/17/2009. TECHNIQUE: Ultrasound of the pelvis is performed using both transabdominal and transvaginal transducers along with Doppler. Transvaginal imaging is performed due to inadequate visualization transabdominally. FINDINGS: Uterus: The uterus is anteverted and measures 7.5 x 3.6 x 4.3 cm. The endometrium is abnormally thickened and heterogeneous with cystic and solid components measuring 2 cm in thickness. The uterus is smooth in contour and has normal myometrial echogenicity. No visible fibroid. Adnexa: Both ovaries are visualized. There is normal color flow to the adnexa. There is no ovarian torsion. There is no pelvic ascites or fluid collection. Right ovary measures 2.1 x 1.1 x 1.3 cm for a volume 1.6 mL. Left ovary measures 1.9 x 1.3 x 1.3 cm for a volume 1.7 mL. US/US pelvic and transvaginal IMPRESSION: 1. Abnormally thickened heterogeneous endometrium. Further evaluation is recommended. 2. The ovaries are normal.
== END 2023-09-29 10:12 | disposition home or self-care (01) ==
LOC: HO.US 10:11
PROVIDERS: PCP Internal Medicine; Visit Provider Advanced Practice Midwife
DX: R10.2 Pelvic and perineal pain (principal)
CPT/HCPCS: 76830; 76856

== ENCOUNTER 2023-10-04 12:38 | Outpatient (AMB) | payer MEDICARE, SELFPAY ==
[2023-10-04 12:43] VITALS: BP 114/76; BMI 44.3
--- NOTE | 2023-10-04 12:43 | MHC.OFFVIS ---
Intake Vital Signs 10/04/23 12:43 Height 5 ft 9 in Weight 300 lb BMI 44.3 BP 114/76 Intake Visit Reasons: Ultrasound results Accompanied by: Family/Other Allergies bee pollen Allergy (Severe, Verified 10/04/23 12:43) Swelling ciprofloxacin [From Cipro] Allergy (Severe, Verified 10/04/23 12:43) RASH-ITCHING Penicillins Allergy (Intermediate, Verified 10/04/23 12:43) Rash Sulfa (Sulfonamide Antibiotics) [SULFA (SULFONAMIDE ANTIBIOTICS)] Allergy (Intermediate, Verified 10/04/23 12:43) HIVES HPI HPI Comments History of Present Illness Details Bull is here today for a follow-up ultrasound. Chief has a history of constant pelvic pain, described as cramping 6/10 pain scale. Her niece Preeti is present for today's visit. She reports having a procedure years ago and was noted to have us stenotic os were she reports when Dr. Blair dilated her she passed out. She also reports that her pelvic ultrasound was very painful recently. [facility] Medical History Hiatal hernia Peptic ulcer Hx of simple renal cyst History of fatty infiltration of liver Elevated cholesterol Thyroid disease HTN (hypertension) Surgical History History of endoscopy History of colonoscopy History of tonsillectomy and adenoidectomy History of bilateral cataract extraction Family History Father CVD (cardiovascular disease) Past heart attack Mother Breast cancer Bone metastases Brother Past heart attack Social History Household Members: None Housing: Apartment Are you a primary medicare contact specialist to a significant other at home: No Do you presently have visiting nurse or other home services: No Alcohol intake: never Patient Tobacco Use Status: Never used Tobacco e-Cigarette/Vaping Use: Never Used Second Hand Smoke Exposure: No service: No Current occupational status: retired Cognitive needs: No Hearing needs: No Vision needs: No Review of Systems Const All systems reviewed & are unremarkable except as noted in HPI and below Physical Exam Vital Signs: Last Vital Signs BP 114/76 10/04/23 12:43 BMI result Body Mass Index 44.3 Const General: cooperative, healthy appearing and no acute distress Orientation/consciousness: patient oriented x3 GI Inspection: Yes normal to inspection Palpation (GI): Soft to palpation and Other GI palpation findings present (Nontender) Rectal Exam - Female: visual inspection normal General: Yes bladder normal to palpation External Female Exam: normal appearance of the urethra Speculum Exam - Vagina: normal appearance of the vagina, normal palpation, normal vaginal discharge and vagina atrophic Speculum Exam - Cervix: normal appearance of the cervix, normal palpation and Other cervical findings present (Stenotic os) Bimanual exam- vagina & uterus: normal bimanual exam, normal palpation, uterine size normal, bladder normal to palpation, normal palpation, uterine shape normal and non-tender Bimanual Exam- Adnexa, other: normal adnexae Neuro General: patient oriented x3 Office Procedures Endometrial Biopsy Details: The patient is here today for an endometrial biopsy for AUB to rule out any pathology including atypical, hyperplasia or cancer cells of the uterus. She was counseled regarding anticipatory guidance for the procedure including the risks for pain, infection, bleeding, perforation, potential injury to the tissues may include the cervix, uterus, tubes, bladder and bowels. These injuries may include further treatment and evaluation including surgery, blood transfusions, antibiotics, hospitalizations and anesthesia. Permanent injury and scarring can occur. She was consented for the procedure, and the consent forms were signed. She is agreeable to have the procedure today. All questions were answered. Endometrial Biopsy Procedure: The patient was placed in the dorsal lithotomy position and a sterile speculum inserted. Using aseptic technique for the procedure. The cervix was cleansed with Betadine x 3 swabs. A single toothed tenaculum was placed on the cervix for stabilization and the uterus. The cervix was stenotic, a graduated dilator was utilized and not able to pass through the internal os the procedure was stopped. Minimal bleeding was observed. Endometrial Biopsy Post Procedure Care: Nothing in the vagina including: tampons, douching or intimacy until all the bleeding has subsided. There may be some post procedure bleeding for several days, this bleeding is usually light and may turn to a light brown or pink color. Mild cramps may occurs. Nothing in the vaginal including: tampons, douching, or intimacy until all the bleeding has subsided. You may take an over the counter mild analgesic such as Tylenol or Advil (if no allergies) per the manufactures recommendation on dosing, frequency, and follow the directions completely. Call the office if any: fever (over 100.4), flu like symptoms, abdominal pain (worse than cramping), foul smelling, infected appearing vaginal discharge, or heavy bleeding. You will be scheduled for a follow up visit for results, either in person or on the phone when the results are completed in a few weeks. If indicated: Use condoms to prevent and STI's, and only after the bleeding has stopped completely. [id number] Biopsy Results Reviewed Results Reviewed: [address] [address] Ultrasound Report Signed Patient: Kirstin Tucker MR#: [id number] : 1955 Acct:[id number] Age/Sex: 67 / F ADM Date: 09/29/23 Loc: .[place] Attending Dr: Batool Chowdhury CNM Ordering Physician: Batool Chowdhury CNM Date of Service: 09/29/23 Procedure(s): US pelvic and transvaginal Accession Number(s): [id number] cc: Ilia Stanton MD; Batool Chowdhury CNM~ EXAMINATION: US PELVIS CLINICAL INFORMATION: Pelvic and perineal pain. COMPARISON: CT abdomen/pelvis 2017 and pelvic ultrasound 12/17/2009. TECHNIQUE: Ultrasound of the pelvis is performed using both transabdominal and transvaginal transducers along with Doppler. Transvaginal imaging is performed due to inadequate visualization transabdominally. FINDINGS: Uterus: The uterus is anteverted and measures 7.5 x 3.6 x 4.3 cm. The endometrium is abnormally thickened and heterogeneous with cystic and solid components measuring 2 cm in thickness. The uterus is smooth in contour and has normal myometrial echogenicity. No visible fibroid. Adnexa: Both ovaries are visualized. There is normal color flow to the adnexa. There is no ovarian torsion. There is no pelvic ascites or fluid collection. Right ovary measures 2.1 x 1.1 x 1.3 cm for a volume 1.6 mL. Left ovary measures 1.9 x 1.3 x 1.3 cm for a volume 1.7 mL. US/US pelvic and transvaginal IMPRESSION: 1. Abnormally thickened heterogeneous endometrium. Further evaluation is recommended. 2. The ovaries are normal. Dictated By: Reynold Becerril MD Assessment & Plan Assessment & Plan (1) Abnormal finding on ultrasound: Code(s): R93.89 - Abnormal findings on diagnostic imaging of other specified body structures Plan: Discussed abnormal findings of thickened endometrium cystic in other tissue noted. Recommended endometrial biopsy. All of her questions and concerns were addressed to the best of my ability and shared decision making. She is agreeable to the plan of care. (2) Thickened endometrium: Code(s): R93.89 - Abnormal findings on diagnostic imaging of other specified body structures (3) Pelvic pain: Code(s): R10.2 - Pelvic and perineal pain Plan The endometrial prep biopsy procedure was not able to be performed due to the cervical stenosis. The patient will be rescheduled Dr. Ashraf for follow-up consult endometrial biopsy/hysteroscopy. Coding Level of Care Code Est Pt Level 3 (23364) Diagnoses Abnormal finding on ultrasound R93.89 Thickened endometrium R93.89 Pelvic pain R10.2 CPT Codes Endometrial Biopsy - CPT: 59728-[id number] Biopsy ([id number]) Comment Failed EMB, ? lOS
== END 2023-10-04 14:34 | disposition home or self-care (01) ==
PROVIDERS: PCP Internal Medicine; Visit Provider Advanced Practice Midwife
DX: R93.89 Abnormal findings on diagnostic imaging of other specified body structures (principal); R10.2 Pelvic and perineal pain
CPT/HCPCS: 99213

== ENCOUNTER → 2023-10-04 12:38 | Outpatient (BNVA) | payer MEDICARE, SELFPAY | PROVIDERS: PCP Internal Medicine; Visit Provider Advanced Practice Midwife | DX: R93.89 Abnormal findings on diagnostic imaging of other specified body structures (principal); R10.2 Pelvic and perineal pain | CPT/HCPCS: 99212 ==

== ENCOUNTER 2023-10-10 12:14 | Outpatient (AMB) | payer MEDICARE, SELFPAY ==
--- NOTE | 2023-10-10 12:22 | A.OFFVIS_ITS ---
Intake Vital Signs 10/10/23 12:25 Height 5 ft 9 in Weight 300 lb BMI 44.3 BP 132/72 Intake Visit Reasons: EMB Consult/Per Batool Medina Crop Nutrition Scientist Required: No Information Interpreted: clinical only Stucco Plasterer: Stucco Plasterer Present Allergies bee pollen Allergy (Severe, Verified 10/10/23 12:27) Swelling ciprofloxacin [From Cipro] Allergy (Severe, Verified 10/10/23 12:27) RASH-ITCHING Penicillins Allergy (Intermediate, Verified 10/10/23 12:27) Rash Sulfa (Sulfonamide Antibiotics) [SULFA (SULFONAMIDE ANTIBIOTICS)] Allergy (Intermediate, Verified 10/10/23 12:27) HIVES Is last menstrual period known: No Post menopausal: Yes Patient : No Do you need a note to return to daycare/school/sports/work: No HPI HPI Comments History of Present Illness Details The patient is referred from Batool Chowdhury CNM regarding abnormal finding on CT scan showing a thickened cystic and solid components endometrium measuring [address] scan done in 10/01/2023 showed the following: Uterus: The uterus is anteverted and measures 7.5 x 3.6 x 4.3 cm. The endometrium is abnormally thickened and heterogeneous with cystic and solid components measuring 2 cm in thickness. The uterus is smooth in contour and has normal myometrial echogenicity. No visible fibroid. Adnexa: Both ovaries are visualized. There is normal color flow to the adnexa. There is no ovarian torsion. There is no pelvic ascites or fluid collection. Right ovary measures 2.1 x 1.1 x 1.3 cm for a volume 1.6 mL. Left ovary measures 1.9 x 1.3 x 1.3 cm for a volume 1.7 mL. 09/21 Co testing was negative EMB was attempted but could not be completed because of stenotic cervix and the patient's inability to tolerate the procedure [facility] Medical History Hiatal hernia Peptic ulcer Hx of simple renal cyst History of fatty infiltration of liver Elevated cholesterol Thyroid disease HTN (hypertension) Surgical History History of endoscopy History of colonoscopy History of tonsillectomy and adenoidectomy History of bilateral cataract extraction Family History Father CVD (cardiovascular disease) Past heart attack Mother Breast cancer Bone metastases Brother Past heart attack Social History Household Members: None Housing: Apartment Are you a primary livestock caretaker to a significant other at home: No Do you presently have visiting nurse or other home services: No Alcohol intake: never Patient Tobacco Use Status: Never used Tobacco e-Cigarette/Vaping Use: Never Used Second Hand Smoke Exposure: No Patient : No service: No Current occupational status: retired Cognitive needs: No Hearing needs: No Vision needs: No Female Reproductive History Menstrual Date of last menstrual period: 08/27/20 Total pregnancies: 2 Full term: 2 Review of Systems Card Reports as per HPI and Reports no additional complaints Resp Reports as per HPI and Reports no additional complaints GI Reports as per HPI and Reports no additional complaints Reports as per HPI Physical Exam Vital Signs: Last Vital Signs BP 132/72 10/10/23 12:25 BMI result Body Mass Index 44.3 Const General: cooperative, healthy appearing and comfortable Chest Chest palpation & inspection: normal inspection of the chest and normal palpation of entire chest wall Breast/axilla inspection: normal inspection of the breasts and normal inspection of the axillae Breast/axilla palpation: normal palpation of the breasts, normal palpation of the axillae and no axillary lymphadenopathy Resp Effort & Inspection: normal respiratory effort Auscultation: clear to auscultation bilaterally Percussion: percussion normal Cardio Palpation: normal PMI Rate: regular rate Rhythm: regular rhythm Heart sounds: no murmurs and no rubs Peripheral pulses: Peripheral pulses 2+ throughout GI Inspection: Yes normal to inspection Palpation (GI): Soft to palpation, nontender, no guarding, not rigid and No hepatosplenomegaly present Percussion: Yes normal to percussion Auscultation: normal bowel sounds Rectal Exam - Female: deferred Office Procedures Endometrial Biopsy Details: The patient was counseled regarding the indication and benefits of endometrial sampling to rule out endometrial pathology including not limited to endometrial hyperplasia or endometrial cancer and others; The alternatives (Either do nothing vs. hysteroscopy D&C) & the risks were discussed with the patient including but not limited: pain, uterine perforation, bleeding, infection, possible injury to bladder, bowel, ureter, possible need for blood transfusion with all its possible risks. The patient verbalized understanding all questions answered and signed consent. The patient was placed into the dorsal lithotomy position; a speculum was inserted in the vagina. Using aseptic technique for the procedure, the cervix was cleansed with Betadine. 10 cc of xylocaine was injected at 2, 4, 8 and 10:00 o'clock for paracervical block. The anterior lip of the cervix was grasped with a single tooth tenaculum. The uterus was sounded to no more than 4 cm with a 4 mm Pipelle was used, there was resistance resistance at 4 mm. Minimal Tissues samples were obtained and placed in formalin, in a patient labeled container and sent to the pathology department. At the end of the procedure, there was minimal bleeding noted The patient tolerated the procedure well and was discharged in good condition with the following instructions: Nothing in the vagina until the bleeding stops. No sex until the bleeding stops, to call if any of the following occurs: fever (>100.4), flu-like symptoms, abdominal pain, heavy bleeding, four smelling vaginal discharge. The patient was instructed to schedule a Follow up appointment in 2 weeks to discuss pathology results of the biopsy and treatment options. This note was generated with a voice recognition program. Some errors may have been overlooked during the review of this note. Sometimes these errors may affect the content or meaning of a given sentence. [id number] Biopsy Assessment & Plan Assessment & Plan (1) Thickened endometrium: Code(s): R93.89 - Abnormal findings on diagnostic imaging of other specified body structures Plan: Discussed with the patient the finding on CT scan showing 2 cm endometrium with cystic and solid components, in addition explained to the patient that if the endometrial thickness is above 4 mm in menopause , the differential diagnosis of a thickened endometrium includes but not limited to endometrial polyp, hyperplasia or carcinoma. Explained to the patient that endometrial each thickness is less predictive of endometrial neoplasia in asymptomatic patients, i.e. those without postmenopausal uterine bleeding. The sensitivity and specificity for detecting endometrial carcinoma at an endometrial thickness of >= 5mm was 83 and 72 percent, respectively; this is lower than in patients with bleeding. Studies have shown that postmenopausal patients without uterine bleeding who had an endometrial thickness >11 mm had an endometrial carcinoma risk of 6.7 percent; this risk is similar to postmenopausal patients with bleeding and an endometrial thickness >5 mm. Recommended endometrial sampling to rule endometrial pathology via either office endometrial biopsy or diagnostic hysteroscopy/D&C with possible polypectomy/myomectomy. All pros and cons, risks and benefits of each approach were discussed with the patient, the patient decided to proceed with office endometrial biopsy. EMB done, see procedure note Orders: Orders AMB Endometrial Biopsy Today R93.89 - Abnormal findings on diagnostic imaging of other specified body structures Coding Level of Care Code Est Pt Level 3 (39829) Procedure Only Diagnoses Thickened endometrium R93.89 CPT Codes Endometrial Biopsy - CPT: 45500-[id number] Biopsy ([id number])
[2023-10-10 12:25] VITALS: BP 132/72; BMI 44.3
== END 2023-10-10 14:03 | disposition home or self-care (01) ==
LOC: HO.HWS 12:14
PROVIDERS: PCP Internal Medicine; Visit Provider Obstetrics & Gynecology
DX: R93.89 Abnormal findings on diagnostic imaging of other specified body structures (principal)
CPT/HCPCS: 58100

== ENCOUNTER 2023-10-10 12:14 | Outpatient (REF) | payer MEDICARE, SELFPAY | END 2023-10-10 12:15 | disposition home or self-care (01) | LOC: HO.LNP 12:14 | PROVIDERS: PCP Internal Medicine; Visit Provider Obstetrics & Gynecology | DX: R93.89 Abnormal findings on diagnostic imaging of other specified body structures (principal) | CPT/HCPCS: 58100; 88305 ==

== ENCOUNTER 2023-11-01 10:04 | Outpatient (AMB) | payer MEDICARE, SELFPAY ==
--- NOTE | 2023-11-01 10:19 | MHC.OFFVIS ---
Intake Vital Signs 11/01/23 10:32 Height 5 ft 9 in Weight 299 lb 13.259 oz BMI 44.3 BP 120/82 Intake Visit Reasons: EMB follow up Relay Repairer: Relay Repairer Present Allergies bee pollen Allergy (Severe, Verified 10/10/23 12:27) Swelling ciprofloxacin [From Cipro] Allergy (Severe, Verified 10/10/23 12:27) RASH-ITCHING Penicillins Allergy (Intermediate, Verified 10/10/23 12:27) Rash Sulfa (Sulfonamide Antibiotics) [SULFA (SULFONAMIDE ANTIBIOTICS)] Allergy (Intermediate, Verified 10/10/23 12:27) HIVES Is last menstrual period known: Yes Last menstrual period: 08/27/20 Post menopausal: No Patient : No Do you need a note to return to daycare/school/sports/work: Yes (for surgery on monday) HPI HPI Comments History of Present Illness Details The patient is presenting after endometrial biopsy. The patient has no complaints, no vaginal bleeding, no feverishness chills or abdominal pain. Endometrial biopsy pathology showed the following: Endometrium, biopsy: - Mildly inflamed atrophic squamous epithelium with reactive changes; mucoinflammatory material. - Minute strip of benign glandular epithelium. COMMENT: Recommend repeat sampling, as clinically appropriate [facility] Medical History Hiatal hernia Peptic ulcer Hx of simple renal cyst History of fatty infiltration of liver Elevated cholesterol Thyroid disease HTN (hypertension) Surgical History History of endoscopy History of colonoscopy History of tonsillectomy and adenoidectomy History of bilateral cataract extraction Family History Father CVD (cardiovascular disease) Past heart attack Mother Breast cancer Bone metastases Brother Past heart attack Social History Household Members: None Housing: Apartment Are you a primary client care representative to a significant other at home: No Do you presently have visiting nurse or other home services: No Alcohol intake: never Patient Tobacco Use Status: Never used Tobacco e-Cigarette/Vaping Use: Never Used Second Hand Smoke Exposure: No service: No Current occupational status: retired Cognitive needs: No Hearing needs: No Vision needs: No Female Reproductive History Menstrual Date of last menstrual period: 08/27/20 Total pregnancies: 2 Full term: 2 Review of Systems Card Reports as per HPI and Reports no additional complaints Resp Reports as per HPI and Reports no additional complaints GI Reports as per HPI and Reports no additional complaints Reports as per HPI Physical Exam Const General: cooperative, healthy appearing and comfortable Chest Chest palpation & inspection: normal inspection of the chest and normal palpation of entire chest wall Breast/axilla inspection: normal inspection of the breasts and normal inspection of the axillae Breast/axilla palpation: normal palpation of the breasts, normal palpation of the axillae and no axillary lymphadenopathy Resp Effort & Inspection: normal respiratory effort Auscultation: clear to auscultation bilaterally Percussion: percussion normal Cardio Palpation: normal PMI Rate: regular rate Rhythm: regular rhythm Heart sounds: no murmurs and no rubs Peripheral pulses: Peripheral pulses 2+ throughout GI Inspection: Yes normal to inspection Palpation (GI): Soft to palpation, nontender, no guarding, not rigid and No hepatosplenomegaly present Percussion: Yes normal to percussion Auscultation: normal bowel sounds Rectal Exam - Female: deferred Assessment & Plan Assessment & Plan (1) Thickened endometrium: Code(s): R93.89 - Abnormal findings on diagnostic imaging of other specified body structures Plan Discussed with the patient the results the EMB pathology, recommended other repeat office EMB versus hysteroscopy D&C possible polypectomy myomectomy. All pros and cons, risks and benefits of each were discussed with the patient, the patient decided to proceed with hysteroscopy D&C possible polypectomy/myomectomy. Discussed with the patient the procedure , all benefits and risks including but not limited to inability to complete the procedure , bleeding, infection, possible need for blood transfusion with all its risk ( HIV,syphilis, Hepatitis, anaphylaxis shock, others..), injury to bladder, rectum, possible need for laparoscopy/laparotomy or hysterectomy. The patient verbalized understanding and signed the consent. Instructions given the patient to schedule a 2 week postoperative appointment Coding Level of Care Code Est Pt Level 3 (25811) Diagnoses Thickened endometrium R93.89
[2023-11-01 10:32] VITALS: BP 120/82; BMI 44.3
== END 2023-11-01 10:47 | disposition home or self-care (01) ==
LOC: HO.HWS 10:04
PROVIDERS: PCP Internal Medicine; Visit Provider Obstetrics & Gynecology
DX: R93.89 Abnormal findings on diagnostic imaging of other specified body structures (principal)
CPT/HCPCS: 99213

== ENCOUNTER → 2023-11-01 10:04 | Outpatient (BNVA) | payer MEDICARE, SELFPAY | PROVIDERS: PCP Internal Medicine; Visit Provider Obstetrics & Gynecology | DX: R93.89 Abnormal findings on diagnostic imaging of other specified body structures (principal) | CPT/HCPCS: 99212 ==

== ENCOUNTER 2023-11-03 06:01 | Day surgery (SDC) | payer MEDICARE, SELFPAY ==
--- NOTE | 2023-11-02 08:47 | P.CONAN_ITS ---
HPI - Anesthesia Eval Consult details Narrative: 67yo F for D&C Hysteroscopy,poss myomectomy,poss polypectomy, PMFSH Active Problems Active Problems: All Active Problems (Updated 09/01/23 @ 08:22 by Alyssa Tellez) Low back pain (Acute) Physical exam (Acute) Coronary artery disease (Acute) Back pain (Acute) Other and unspecified hyperlipidemia (Acute) Essential hypertension (Acute) Morbid obesity (Acute) SOB (shortness of breath) (Acute) Chest pain (Acute) Pain aggravated by breathing (Acute) Dyspnea (Acute) Cough (Acute) Dizziness (Acute) NAFLD (nonalcoholic fatty liver disease) (Acute) Diverticulosis of colon (Acute) Hiatal hernia (Acute) Hypothyroidism (Acute) Peripheral edema (Acute) Abdominal pain (Acute) Abdominal bloating (Acute) Early satiety (Acute) Encounter for screening colonoscopy (Acute) HTN (hypertension) (Acute) Past Medical History Medical History Hiatal hernia Peptic ulcer Hx of simple renal cyst History of fatty infiltration of liver Elevated cholesterol Thyroid disease HTN (hypertension) Family History Family History Father CVD (cardiovascular disease) Past heart attack Mother Breast cancer Bone metastases Brother Past heart attack Surgical History Surgical History History of endoscopy History of colonoscopy History of tonsillectomy and adenoidectomy History of bilateral cataract extraction Social History Social History Household Members: None Housing: Apartment Are you a primary md do resident urgent care to a significant other at home: No Do you presently have visiting nurse or other home services: No Alcohol intake: never Patient Tobacco Use Status: Never used Tobacco e-Cigarette/Vaping Use: Never Used Second Hand Smoke Exposure: No service: No Current occupational status: retired Cognitive needs: No Hearing needs: No Vision needs: No Meds Allergies Allergy/AdvReac Type Severity Reaction Status Date / Time bee pollen Allergy Severe Swelling Verified 11/03/23 06:22 ciprofloxacin [From Cipro] Allergy Severe RASH-ITCHIN Verified 11/03/23 06:22 G Penicillins Allergy Intermediate Rash Verified 11/03/23 06:22 Sulfa (Sulfonamide Allergy Intermediate HIVES Verified 11/03/23 06:22 Antibiotics) [SULFA (SULFONAMIDE ANTIBIOTICS)] Home Medications Medication Instructions Recorded Confirmed Last Taken Type omeprazole 20 mg capsule,delayed 20 mg PO DAILY 08/21/23 11/03/23 Unknown History release Exam Pertinent Lab Results Pertinent Lab Results: Laboratory Tests 08/14/23 06:12 WBC 7.1 Hgb 14.3 Hct 43.9 Plt Count 235 Sodium 141 Potassium 4.0 Chloride 108 Carbon Dioxide 22 BUN 17 H Creatinine 0.92 Narrative Narrative: ECHO 2021 Conclusions: - 1. Normal LV systolic function with impaired relaxation filling pattern 2. Normal cardiac valvular Doppler 3. Normal RV systolic pressure 4. No gross pericardial effusion Assessment and Plan Assessment Anesthesia Assessment: Chart Reviewed
[2023-11-03 06:20] VITALS: BMI 45.3
[2023-11-03 06:34] VITALS: BP 129/55; PULSE 62; RESP 18; TEMP 36.6; O2SAT 96
--- NOTE | 2023-11-03 07:26 | HO.ANESPROP2 ---
[facility] Active Problems Active Problems: All Active Problems (Updated 09/01/23 @ 08:22 by Alyssa Tellez) Low back pain (Acute) Physical exam (Acute) Coronary artery disease (Acute) Back pain (Acute) Other and unspecified hyperlipidemia (Acute) Essential hypertension (Acute) Morbid obesity (Acute) SOB (shortness of breath) (Acute) Chest pain (Acute) Pain aggravated by breathing (Acute) Dyspnea (Acute) Cough (Acute) Dizziness (Acute) NAFLD (nonalcoholic fatty liver disease) (Acute) Diverticulosis of colon (Acute) Hiatal hernia (Acute) Hypothyroidism (Acute) Peripheral edema (Acute) Abdominal pain (Acute) Abdominal bloating (Acute) Early satiety (Acute) Encounter for screening colonoscopy (Acute) HTN (hypertension) (Acute) Past Medical History Medical History Hiatal hernia Peptic ulcer Hx of simple renal cyst History of fatty infiltration of liver Elevated cholesterol Thyroid disease HTN (hypertension) Patient : No Family History Family History Father CVD (cardiovascular disease) Past heart attack Mother Breast cancer Bone metastases Brother Past heart attack Family history of problems with anesthesia: No Surgical History Surgical History History of endoscopy History of colonoscopy History of tonsillectomy and adenoidectomy History of bilateral cataract extraction History of Problems with Anesthesia: No Social History Social History Household Members: None Housing: Apartment Are you a primary patient centered care specialist to a significant other at home: No Do you presently have visiting nurse or other home services: No Alcohol intake: never Patient Tobacco Use Status: Never used Tobacco e-Cigarette/Vaping Use: Never Used Second Hand Smoke Exposure: No Are you DNR?: No Advance Directives: No Advance Directives Information Provided: Yes Nutrition Risks: No Nutritional Risk service: No Current occupational status: retired Cognitive needs: No Hearing needs: No Vision needs: No Meds Allergies Allergy/AdvReac Type Severity Reaction Status Date / Time bee pollen Allergy Severe Swelling Verified 11/03/23 06:22 ciprofloxacin [From Cipro] Allergy Severe RASH-ITCHIN Verified 11/03/23 06:22 G Penicillins Allergy Intermediate Rash Verified 11/03/23 06:22 Sulfa (Sulfonamide Allergy Intermediate HIVES Verified 11/03/23 06:22 Antibiotics) [SULFA (SULFONAMIDE ANTIBIOTICS)] Active Medications: Current Medications Lactated Ringer's (Lr) 1,000 mls @ 100 mls/hr IVCONT .Q10H KIM Last Admin: 11/03/23 06:27 Dose: 100 mls/hr Home Medications Medication Instructions Recorded Confirmed Last Taken Type omeprazole 20 mg capsule,delayed 20 mg PO DAILY 08/21/23 11/03/23 Unknown History release Exam Height,Weight and Vital Signs: Height 5 ft 9 in Weight 139.071 kg Last Vital Signs Temp 97.9 F 11/03/23 06:34 Pulse 62 11/03/23 06:34 Resp 18 11/03/23 06:34 BP 129/55 L 11/03/23 06:34 Pulse Ox 96 11/03/23 06:34 O2 Del Method Room Air 11/03/23 06:34 Airway Mallampati Class: II TM Dist: >3cm Neck ROM: Full Loose/Missing/Broken Teeth: No Heart: rrr Lungs: clear Assessment and Plan Final Anesthetic Review Family History of Problems with Anesthesia: No History of Problems with Anesthesia: No NPO: Yes ASA Class: III Final Preanesthetic Review: No Changes in Pt Med Stat, Meds/Allgs Chart Reviewed, Consent Obtained/Reviewed and Anes Risks/Benef Reviewed Patient Risk: High Procedure Risk: Low Anesthetic Plan Anesthetic Plan: GA Disposition: Standard PACU
--- NOTE | 2023-11-03 07:29 | MHC.SHP ---
Pre-Procedural Eval Section A Date of Service: 11/03/23 The patient is an INPATIENT: No Changes since office visit: No Cold of Flu in the past 2 weeks, No New Medical Problems, No Changes in Medication and No Patient answered all questions The History & Physical has been completed within 30 days and I have reviewed it.: Yes Section B Chief Complaint: Abnormal findings on diagnostic imaging of other Allergies: Allergies Allergy/AdvReac Type Severity Reaction Status Date / Time bee pollen Allergy Severe Swelling Verified 11/03/23 06:22 ciprofloxacin [From Cipro] Allergy Severe RASH-ITCHIN Verified 11/03/23 06:22 G Penicillins Allergy Intermediate Rash Verified 11/03/23 06:22 Sulfa (Sulfonamide Allergy Intermediate HIVES Verified 11/03/23 06:22 Antibiotics) [SULFA (SULFONAMIDE ANTIBIOTICS)] Plan Diagnosis/Plan: Unchanged I have reviewed the history and physical and performed a pertinent physical examination on my patient. No changes have occurred unless specified. Time Spent With Patient Time: Total time managing care of this patient today ____ minutes.
--- NOTE | 2023-11-03 08:10 | PM.OP ---
Brief Operative Note Date of Service: 11/03/23 Pre-op diagnosis: Thickened abnormal endometrium by ultrasound Post-op diagnosis: same (Normal endometrial cavity) Procedure: Hysteroscopy D&C Surgeon: Rigoberto Ashraf MD Anesthesia: GLMA Was an Product Director used for this Procedure?: No Estimated blood loss (mL): 0 Pathology: other (Endometrial Scrapping.) Condition: stable Disposition: PACU
--- NOTE | 2023-11-03 08:11 | W.PM.OPN ---
Operative Note Operative Note Date of Service: 11/03/23 Narrative: Preop Diagnosis: Thickened abnormal endometrial cavity by ultrasound Operation: Diagnostic Hysteroscopy, Dilataion & Curettage Post Op Diagnosis: Normal endometrial cavity QBL: Minimal Anesthesia: GLMA Surgeon: Rigoberto Ashraf MD Assistant Baseball Coach: None Complication: None Pathology: Endometrial Scrapings Procedure: The patient was put in the dorsal lithotomy position, scrubbed, and draped in the usual manner. A sterile speculum was inserted in the patient's vagina. The anterior lip of the cervix was grasped with a single tooth tenaculum. The cervix was dilated up to 5 mm, then the scope was inserted in the patient's uterus. Inspection revealed Normal endometrial cavity. The Myosure Reach device was used; the scope was removed from the endometrial cavity , sharp curettings was carried on with minimal amount of tissues retrieved. At the end of the procedure, all instruments were taken out of the patient uterine and vaginal cavity. The single tooth tenaculum was removed and homeostasis was assured using pressure,. The patient tolerated the procedure well and was transferred to the PACU in a stable condition.
[2023-11-03 08:25] VITALS: BP 116/54; PULSE 56; RESP 16; TEMP 36.4; O2SAT 94
[2023-11-03 08:30] VITALS: BP 111/60; PULSE 54; RESP 16; O2SAT 96
[2023-11-03 08:35] VITALS: BP 112/47; PULSE 52; RESP 16; O2SAT 95
[2023-11-03 08:40] VITALS: BP 121/54; PULSE 53; RESP 16; O2SAT 94
[2023-11-03 08:55] VITALS: BP 109/44; PULSE 55; RESP 16; TEMP 36.1; O2SAT 96
== END 2023-11-03 09:28 | disposition home or self-care (01) ==
PROVIDERS: PCP Internal Medicine; Visit Provider Obstetrics & Gynecology
PROC: 0UDB8ZZ Extraction of Endometrium, Via Natural or Artificial Opening Endoscopic (ICD-10-PCS; CPT 58558; principal; 2023-11-03 07:30)
DX: R93.89 Abnormal findings on diagnostic imaging of other specified body structures (principal); I10 Essential (primary) hypertension; E78.00 Pure hypercholesterolemia, unspecified; E03.9 Hypothyroidism, unspecified; K76.0 Fatty (change of) liver, not elsewhere classified; K44.9 Diaphragmatic hernia without obstruction or gangrene; K27.9 Peptic ulcer, site unspecified, unspecified as acute or chronic, without hemorrhage or perforation; E66.01 Morbid (severe) obesity due to excess calories; Z68.41 Body mass index [BMI] 40.0-44.9, adult; N28.1 Cyst of kidney, acquired; Z79.899 Other long term (current) drug therapy; Z88.1 Allergy status to other antibiotic agents; Z88.0 Allergy status to penicillin; Z88.2 Allergy status to sulfonamides
CPT/HCPCS: 58558; 88305; J1100; J1885; J2250; J2405; J2704

== ENCOUNTER → 2023-11-03 06:01 | Outpatient (BNV) | payer MEDICARE, SELFPAY | PROVIDERS: PCP Internal Medicine; Visit Provider Obstetrics & Gynecology | DX: R93.89 Abnormal findings on diagnostic imaging of other specified body structures (principal) | CPT/HCPCS: 58558 ==

== ENCOUNTER 2023-11-14 07:14 | Outpatient (AMB) | payer MEDICARE, SELFPAY ==
[2023-11-14 07:32] VITALS: BP 110/70
--- NOTE | 2023-11-14 07:32 | MHC.OFFVIS ---
Intake Vital Signs 11/14/23 07:32 BP 110/70 Intake Visit Reasons: EMB results Allergies bee pollen Allergy (Severe, Verified 11/03/23 06:22) Swelling ciprofloxacin [From Cipro] Allergy (Severe, Verified 11/03/23 06:22) RASH-ITCHING Penicillins Allergy (Intermediate, Verified 11/03/23 06:22) Rash Sulfa (Sulfonamide Antibiotics) [SULFA (SULFONAMIDE ANTIBIOTICS)] Allergy (Intermediate, Verified 11/03/23 06:22) HIVES HPI HPI Comments History of Present Illness Details The patient is presenting post hysteroscopy D&C no complaints minimal vaginal bleeding , no feverishness chills or abdominal pain. The pathology showed the following: Endometrium, curettage: -Insufficient for endometrial evaluation. -Benign endocervical glandular epithelium, squamous epithelium, scant stroma, and blood On 10/11/23 the patient had an office EMB the pathology showed the following: Endometrium, biopsy: - Mildly inflamed atrophic squamous epithelium with reactive changes; mucoinflammatory material. - Minute strip of benign glandular epithelium. COMMENT: Recommend repeat sampling, as clinically appropriate. Patient had pelvic ultrasound 09/29/2023 pelvic pain which showed the following: Uterus: The uterus is anteverted and measures 7.5 x 3.6 x 4.3 cm. The endometrium is abnormally thickened and heterogeneous with cystic and solid components measuring 2 cm in thickness. The uterus is smooth in contour and has normal myometrial echogenicity. No visible fibroid. Adnexa: Both ovaries are visualized. There is normal color flow to the adnexa. There is no ovarian torsion. There is no pelvic ascites or fluid collection. Right ovary measures 2.1 x 1.1 x 1.3 cm for a volume 1.6 mL. Left ovary measures 1.9 x 1.3 x 1.3 cm for a volume 1.7 mL. [facility] Medical History Hiatal hernia Peptic ulcer Hx of simple renal cyst History of fatty infiltration of liver Elevated cholesterol Thyroid disease HTN (hypertension) Surgical History History of endoscopy History of colonoscopy History of tonsillectomy and adenoidectomy History of bilateral cataract extraction Family History Father CVD (cardiovascular disease) Past heart attack Mother Breast cancer Bone metastases Brother Past heart attack Social History Household Members: None Housing: Apartment Are you a primary home health care case manager to a significant other at home: No Do you presently have visiting nurse or other home services: No Alcohol intake: never Patient Tobacco Use Status: Never used Tobacco e-Cigarette/Vaping Use: Never Used Second Hand Smoke Exposure: No service: No Current occupational status: retired Cognitive needs: No Hearing needs: No Vision needs: No Review of Systems Const All systems reviewed & are unremarkable except as noted in HPI and below Reports as per HPI and Reports no additional complaints GI Reports no additional complaints Reports no additional complaints Physical Exam Vital Signs: Last Vital Signs BP 110/70 11/14/23 07:32 Assessment & Plan Assessment & Plan (1) Thickened endometrium: Code(s): R93.89 - Abnormal findings on diagnostic imaging of other specified body structures Plan: Discussed with the patient the results the pathology with no endometrial tissue identified, explained to the patient that endometrial pathology including endometrial polyps, hyperplasia or malignancy has not been ruled out, will refer to [facility] for further management. All questions answered, the patient verbalized understanding Coding Level of Care Code Est Pt Level 3 (92836) Diagnoses Thickened endometrium R93.89
== END 2023-11-14 07:51 | disposition home or self-care (01) ==
LOC: HO.HWS 07:14
PROVIDERS: PCP Internal Medicine; Visit Provider Obstetrics & Gynecology
DX: R93.89 Abnormal findings on diagnostic imaging of other specified body structures (principal)
CPT/HCPCS: 99213

== ENCOUNTER → 2023-11-14 07:14 | Outpatient (BNVA) | payer MEDICARE, SELFPAY | PROVIDERS: PCP Internal Medicine; Visit Provider Obstetrics & Gynecology | DX: R93.89 Abnormal findings on diagnostic imaging of other specified body structures (principal); Z98.890 Other specified postprocedural states | CPT/HCPCS: 99212 ==

== ENCOUNTER 2023-11-15 11:09 | Outpatient (REF) | payer MEDICARE, SELFPAY | END 2023-11-15 11:10 | disposition home or self-care (01) | LOC: HO.MAMMO 11:09 | PROVIDERS: PCP Internal Medicine; Visit Provider Internal Medicine | DX: Z12.31 Encounter for screening mammogram for malignant neoplasm of breast (principal) | CPT/HCPCS: 77063; 77067 ==

== ENCOUNTER → 2023-11-15 11:45 | Outpatient (BNV) | payer MEDICARE, SELFPAY | PROVIDERS: PCP Internal Medicine; Visit Provider Radiology Diagnostic Radiology | DX: Z12.31 Encounter for screening mammogram for malignant neoplasm of breast (principal) | CPT/HCPCS: 77063; 77067 ==

== ENCOUNTER 2023-11-27 08:54 | Outpatient (AMB) | payer MEDICARE, SELFPAY ==
[2023-11-27 09:03] VITALS: BP 122/70; PULSE 67; O2SAT 95
--- NOTE | 2023-11-27 09:03 | A.OFFPC_ITS ---
Vital Signs 11/27/23 09:03 Height 5 ft 9 in BP 122/70 Blood Pressure Location Lt brachial Position Sitting Pulse 67 Pulse Source Pulse Oximeter Pulse Oximetry (%) 95 Oxygen Delivery Method Room Air Intake Visit Reasons: Biopsy procedure Follow Up Roller Repairer Required: No Power Plant Operations Manager: Not Required per policy Accompanied by: Self / Same As Patient Allergies bee pollen Allergy (Severe, Verified 11/27/23 09:03) Swelling ciprofloxacin [From Cipro] Allergy (Severe, Verified 11/27/23 09:03) RASH-ITCHING Penicillins Allergy (Intermediate, Verified 11/27/23 09:03) Rash Sulfa (Sulfonamide Antibiotics) [SULFA (SULFONAMIDE ANTIBIOTICS)] Allergy (Intermediate, Verified 11/27/23 09:03) HIVES Medication List - Last Reconciled 11/27/23 by Ilia Stanton MD atenolol 50 mg PO DAILY furosemide 20 mg PO DAILY 90 days levothyroxine 175 mcg PO DAILY lovastatin 20 mg PO DAILY omeprazole 20 mg PO DAILY Tobacco use date assessed: 11/27/23 Fall risk assessment: No Falls in past year Last assessed Fall Risk: 11/27/23 Dental Screening Dental Screen Date: 11/27/23 Did you have a dental visit in the last 12 months?: Yes Did you have a dental problem in the last 6 months where you did not have access to dental care?: No Was dental information given to patient?: Patient has dentist HPI Biopsy procedure Follow Up HPI Details has and enlarged uterus and indeterminate Bx; will be going to [facility]; has some pelvic pain PFSH Medical History Hiatal hernia Peptic ulcer Hx of simple renal cyst History of fatty infiltration of liver Elevated cholesterol Thyroid disease HTN (hypertension) Surgical History History of endoscopy History of colonoscopy History of tonsillectomy and adenoidectomy History of bilateral cataract extraction Family History Father CVD (cardiovascular disease) Past heart attack Mother Breast cancer Bone metastases Brother Past heart attack Social History Household Members: None Housing: Apartment Are you a primary child daycare worker to a significant other at home: No Do you presently have visiting nurse or other home services: No Alcohol intake: never Patient Tobacco Use Status: Never used Tobacco e-Cigarette/Vaping Use: Never Used Second Hand Smoke Exposure: No service: No Current occupational status: retired Cognitive needs: No Hearing needs: No Vision needs: No Questionnaire PHQ-9 Over the last 2 weeks, how often have you been bothered by any of the following problems? 1. Little interest or pleasure in doing things: not at all 2. Feeling down, depressed, or hopeless: not at all 3. Trouble falling or staying asleep, or sleeping too much: not at all 4. Feeling tired or having little energy: not at all 5. Poor appetite or overeating: not at all 6. Feeling bad about yourself - or that you are a failure or have let yourself or your family down: not at all 7. Trouble concentrating on things, such as reading the newspaper or watching television: not at all 8. Moving or speaking so slowly that other people could have noticed. Or the opposite - being so fidgety or restless that you have been moving around a lot more than usual: not at all 9. Thoughts that you would be better off or of hurting yourself in some way: not at all Total score: 0 Depression Screening Interpretation: Positive Depression Screening Done: Yes Source: Developed by Drs. Nura Ash, Shelly Dickey, Berto Schmitt and colleagues, with an educational jermaine from [employer]. Thrive Questionnaire Date Thrive assessed: 11/27/23 I am a: Patient What is your living situation today?: I have a steady place to live Within the past 12 months, did the food you bought not last and you didn't have the money to get more?: Never true Within the past 12 months, did you worry whether your food would run out before you got money to buy more?: Never true Do you have trouble paying for medicines?: No Do you have trouble getting transportation to medical appointments?: No Do you have trouble paying your heating and electricity bill?: No Do you have trouble taking care of your child, family member or friend?: No Do you have trouble with day-to-day activities such as bathing, preparing meals, shopping, managing finances, etc.?: No Are you currently unemployed and looking for a job?: No Are you interested in more education?: No Please select the resources that you would like help with: None THRIVE Score: 0 AUDIT C Alcohol Use Questionnaire (AUDIT-C) 1. How often do you have a drink containing alcohol?: Never Total Score: 0 Score Reviewed/Action Taken: Yes SOWMYA-7 AMB Questionnaire SOWMYA-7 Date SOWMYA - 7 assessed: 11/27/23 Feeling nervous, anxious, or on edge: 0 = Not at all Not being able to stop or control worryin = Not at all Worrying too much about different things: 0 = Not at all Trouble relaxin = Not at all Being so restless that it is hard to sit still: 0 = Not at all Becoming easily annoyed or irritable: 0 = Not at all Feeling afraid as if something awful might happen: 0 = Not at all Total SOWMYA-7 score (0-4 normal; 5-9 mild; 10-14 moderate; 15-21 severe): 0 Source: Developed by Drs. Nuar Ash, Shelly Dickey, Berto Schmitt and colleagues, with an educational jermaine from [employer]. Review of Systems Const Denies chills, Denies headache(s) and Denies weight loss ENT Denies headache(s) Card Denies chest pain, Denies syncope, Denies irregular heart rhythm and Denies dyspnea Resp Denies chest congestion, Denies cough and Denies dyspnea GI Denies abdominal pain, Denies change in stool character, Denies nausea and Denies vomiting Musc Denies deformity and Denies joint swelling Neuro Denies syncope and Denies headache(s) Physical exam (Primary Care) Vital Signs: Last Vital Signs Pulse 67 11/27/23 09:03 BP 122/70 11/27/23 09:03 Pulse Ox 95 11/27/23 09:03 Oxygen Delivery Method Room Air 11/27/23 09:03 Tobacco/Smoking Status: Tobacco use Status Tobacco use date assessed 11/27/23 11/27/23 09:05 Patient Tobacco Use Status Never used Tobacco 11/27/23 09:05 e-Cigarette/Vaping Use Never Used 11/27/23 09:05 PHQ-9: PHQ-9 Score PHQ-9: Total score 0 11/27/23 09:05 Depression Screening Interpretation: Positive Thrive Assessment: Date of Thrive Assessment Date Thrive assessed 11/27/23 11/27/23 09:05 Const General: cooperative, comfortable, no acute distress and alert Neck Neck: Yes no lymphadenopathy Thyroid: Thyroid normal Resp Effort & Inspection: normal respiratory effort Auscultation: clear to auscultation bilaterally Percussion: percussion normal Cardio Jugular venous distension: no JVD Palpation: normal PMI Rate: regular rate Rhythm: regular rhythm Heart sounds: S1 normal heart sound present and S2 normal heart sound present GI Inspection: Yes normal to inspection Palpation (GI): No hepatosplenomegaly present Skin General skin exam: no rashes or lesions noted Extrem General: Yes no clubbing, cyanosis or edema Assessment and Plan Assessment & Plan (1) Pelvic pain: Code(s): R10.2 - Pelvic and perineal pain Plan: as per survival equipment repairer Coding Level of Care Code Est Pt Level 3 (62471) Diagnoses Pelvic pain R10.2
== END 2023-11-27 09:31 | disposition home or self-care (01) ==
PROVIDERS: PCP Internal Medicine; Visit Provider Internal Medicine
DX: R10.2 Pelvic and perineal pain (principal)
CPT/HCPCS: 99213

== ENCOUNTER 2023-12-07 00:12 | Emergency (ER) | payer MEDICARE, SELFPAY ==
--- NOTE | ~2023-12-07 | CT_ITS ---
EXAMINATION: CT ABDOMEN AND PELVIS WITH CONTRAST CLINICAL INFORMATION: Abdominal pain. Diarrhea. COMPARISON: None available. TECHNIQUE: Multidetector volumetric images were obtained from the superior aspect of the liver through the pubic symphysis following administration of 99 mL of Omnipaque 350 intravenous contrast. Sagittal and coronal reformatted images were obtained on the technologist's workstation. Oral contrast: No This CT examination was performed using dose optimization techniques as appropriate, variously including the following: *Automated exposure control *Adjustment of mA and/or kV according to patient size (this includes techniques or standardized protocols for targeted exams where dose is matched to indication/reason for exam; i.e. extremities or head) *Use of iterative reconstruction technique DLP: 1462 mGy-cm FINDINGS: LUNG BASES: The visualized lung bases are unremarkable. LIVER, GALLBLADDER, AND BILIARY TREE: The liver is normal in size, shape, and attenuation. No focal hepatic lesion or biliary ductal dilatation is present. The gallbladder is unremarkable with no evidence of radiopaque gallstones, gallbladder wall thickening, or obvious pericholecystic inflammatory changes. PANCREAS: Unremarkable. SPLEEN: Unremarkable. ADRENAL GLANDS: Unremarkable. KIDNEYS AND URETERS: The kidneys are normal in size, shape, and attenuation. No hydronephrosis, hydroureter, or calculi seen. No perinephric stranding. BLADDER: Unremarkable. GASTROINTESTINAL TRACT: There are prominent fluid-filled small bowel loops and fluid throughout the colon. There are diverticula of the descending and the sigmoid colon without diverticulitis. The appendix is visualized and is within normal limits. ABDOMINAL WALL: No significant hernia is appreciated. LYMPH NODES: Normal. VASCULAR: There is mild atherosclerotic plaque of the abdominal aorta and proximal branches. PELVIC VISCERA: Unremarkable. OSSEOUS STRUCTURES: There is diffuse thoracolumbar disc degenerative change. CT/CT abdomen pelvis w IV con IMPRESSION: 1. Prominent fluid-filled small bowel loops and fluid throughout the colon. This is nonspecific and may represent enteritis. 2. Diverticulosis without diverticulitis. Fleischner guidelines were followed.
[2023-12-07 00:30] VITALS: BP 137/83; PULSE 86; RESP 14; TEMP 36.4; O2SAT 95; BMI 44.3
[2023-12-07 00:45] LABS: MANUAL DIFF FLAG NO
[2023-12-07 00:52] LABS: Basophils Percent Auto 0.3 % (0-2); Eosinophils Absolute Auto 0.2 X10*3/uL (0.0-0.4); Eosinophils Percent Auto 1.9 % (0-4); Hematocrit 44.5 % (37.0-47.0); Hemoglobin 14.8 g/dl (12.0-16.0); Imm Gran Abs Auto 0.04 X10*3/uL (0.00-0.03); Imm Gran Pct Auto 0.3 % (0.0-0.4); Lymphocytes Absolute Auto 1.7 X10*3/uL (1.2-4.9); Mean Corpuscular HGB Conc 33.3 g/dl (31.0-35.0); Mean Corpuscular Hemoglobin 30.4 pg (27.0-33.0); Mean Corpuscular Volume 91.4 fL (80.0-98.0); Mean Platelet Volume 9.7 fL (9.4-12.3); Monocytes Absolute Auto 0.9 X10*3/uL (0.1-1.2); Monocytes Percent Auto 7.5 % (2-11); Neutrophils Absolute Auto 8.7 x10*3/uL (2.0-8.3); Platelet Count 229 X10*3/uL (160-400); Red Blood Count 4.87 X10*6/uL (4.20-5.50); White Blood Count 11.6 X10*3/uL (4.8-10.8)
[2023-12-07 00:59] LABS: Alanine Aminotransferase 20 U/L (0-31); Albumin Level 4.4 g/dL (3.5-5.0); Alkaline Phosphatase 95 U/L (39-117); Anion Gap 14 (12-20); Aspartate Amino Transferase 21 U/L (5-31); Bilirubin Total 0.7 mg/dL (0.0-1.0); Blood Urea Nitrogen 20 mg/dL (9-16); Calcium 9.4 mg/dL (8.4-10.2); Carbon Dioxide 23 mmol/L (22-29); Chloride 109 mmol/L (96-108); Creatinine Clr Calc Pharmacy 85.4; Estimated Glomerular Filt Rate > 60; Glucose Random 113 mg/dL (60-115); Lipase 30 U/L (8-78); Potassium 3.9 mmol/L (3.3-5.1); Sodium 142 mmol/L (135-145); Total Protein 7.5 g/dL (6.5-8.0)
--- NOTE | 2023-12-07 03:04 | PC.NURSE ---
Pt ca&ox4, no signs of distress. Pt denies pain and vomiting. Pt reports nausea and diarrhea. IV line placed. Plan of care ongoing.
[2023-12-07 03:23] LABS: COVID-19 Test Negative (Negative); IDNOW Serial# 152EDE1D
[2023-12-07] MEDS: iohexoL 350 MG/ML 100 ML INFUS..BTL IV (03:26)
[2023-12-07 04:11] LABS: C Reactive Protein 0.75 mg/dL (< or = 0.50)
[2023-12-07] MEDS: 0.9 % Sodium Chloride 1,000 ML 999 ML IV ×2 (04:24→06:03)
--- NOTE | 2023-12-07 04:27 | PC.NURSE ---
Pt medicated per dec. Plan of care ongoing.
[2023-12-07 04:45] VITALS: BP 125/50; PULSE 79; RESP 16; TEMP 36.6; O2SAT 97
[2023-12-07] MEDS: Loperamide HCl 2 MG CAPSULE 4 MG PO (05:58)
[2023-12-07] MEDS: Ketorolac Tromethamine 15 MG/ML VIAL 10 MG IVPUSH (06:00)
--- NOTE | 2023-12-07 06:07 | PC.NURSE ---
Pt ambulated to restroom. Pt medicated per dec. Plan of care ongoing.
--- NOTE | 2023-12-07 06:57 | ED.GENADULT ---
HPI - General Adult General Chief complaint: Nausea/Vomiting/Diarrhea Stated complaint: stomach problems Time Seen by Provider: 12/07/23 03:24 Related Data Home Medications Medication Instructions Recorded Confirmed omeprazole 20 mg capsule,delayed 20 mg PO DAILY 08/21/23 11/27/23 release Previous Rx's Medication Instructions Recorded lovastatin 20 mg tablet 20 mg PO DAILY #90 tabs 11/03/22 furosemide 20 mg tablet 20 mg PO DAILY 90 days #90 tabs 11/19/22 atenolol 50 mg tablet 50 mg PO DAILY #90 tabs 12/19/22 levothyroxine 175 mcg tablet 175 mcg PO DAILY #90 tabs 02/15/23 Allergies Allergy/AdvReac Type Severity Reaction Status Date / Time bee pollen Allergy Severe Swelling Verified 12/07/23 00:30 ciprofloxacin [From Cipro] Allergy Severe RASH-ITCHIN Verified 12/07/23 00:30 G Penicillins Allergy Intermediate Rash Verified 12/07/23 00:30 Sulfa (Sulfonamide Allergy Intermediate HIVES Verified 12/07/23 00:30 Antibiotics) [SULFA (SULFONAMIDE ANTIBIOTICS)] [facility] Past Medical History Medical History Hiatal hernia Peptic ulcer Hx of simple renal cyst History of fatty infiltration of liver Elevated cholesterol Thyroid disease HTN (hypertension) Surgical History History of endoscopy History of colonoscopy History of tonsillectomy and adenoidectomy History of bilateral cataract extraction Family History Family History Father CVD (cardiovascular disease) Past heart attack Mother Breast cancer Bone metastases Brother Past heart attack Social History Social History Household Members: None Housing: Apartment Are you a primary care mgr to a significant other at home: No Do you presently have visiting nurse or other home services: No Alcohol intake: never Patient Tobacco Use Status: Never used Tobacco Smoked in Last 30 Days: No e-Cigarette/Vaping Use: Never Used Second Hand Smoke Exposure: No Use of substances other than those prescribed or required for medical reasons: No Advance Directives: No Advance Directives Information Provided: Yes service: No Current occupational status: retired Cognitive needs: No Hearing needs: No Vision needs: No Physical Exam ED Vital Signs: Vital Signs - 24 hr 12/07/23 00:30 12/07/23 04:45 Temperature 97.6 F 97.8 F Pulse Rate 86 79 Respiratory Rate 14 16 Blood Pressure 137/83 125/50 L Pulse Oximetry 95 97 Oxygen Delivery Method Room Air Room Air BMI result Body Mass Index 44.3 Medications Administered Discontinued Medications Generic Name Dose Route Start Last Admin Trade Name Freq PRN Reason Stop Dose Admin Sodium Chloride 1,000 mls @ 999 mls/hr 12/07/23 04:00 12/07/23 05:30 Ns IV 12/07/23 05:00 Infused .Q1H1M KIM Infusion Promethazine HCl 12.5 mg/ 50.5 mls @ 202 mls/hr 12/07/23 03:49 12/07/23 04:53 Sodium Chloride IV 12/07/23 03:50 Infused ONCE ONE Infusion Sodium Chloride 1,000 mls @ 999 mls/hr 12/07/23 05:45 12/07/23 06:03 Ns IV 12/07/23 06:45 999 mls/hr .Q1H1M KIM Administration Iohexol 100 ml 12/07/23 03:25 12/07/23 03:26 Iohexol 350 Mg/Ml 100 Ml Infus..Btl IV 12/07/23 03:26 100 ml ONCE ONE Administration Ketorolac Tromethamine 10 mg 12/07/23 05:39 12/07/23 06:00 Ketorolac Tromethamine 15 Mg/Ml Vial IVPUSH 12/07/23 05:40 10 mg ONCE ONE Administration Loperamide HCl 4 mg 12/07/23 05:40 12/07/23 05:58 Loperamide Hcl 2 Mg Capsule PO 12/07/23 05:41 4 mg ONCE ONE Administration Medical Decision Making Lab Data 12/07/23 00:40 12/07/23 00:40 Labs: Lab Results 12/07/23 12/07/23 Range/Units 00:40 03:02 WBC 11.6 H (4.8-10.8) X10*3/uL RBC 4.87 (4.20-5.50) X10*6/uL Hgb 14.8 (12.0-16.0) g/dl Hct 44.5 (37.0-47.0) % MCV 91.4 (80.0-98.0) fL MCH 30.4 (27.0-33.0) pg MCHC 33.3 (31.0-35.0) g/dl RDW 13.0 (11.0-16.0) % Plt Count 229 (160-400) X10*3/uL MPV 9.7 (9.4-12.3) fL Immature Gran % (Auto) 0.3 (0.0-0.4) % Neut % (Auto) 75.0 H (45-73) % Lymph % (Auto) 15.0 L (20-40) % [place] % (Auto) 7.5 (2-11) % Eos % (Auto) 1.9 (0-4) % Baso % (Auto) 0.3 (0-2) % Lymph # (Auto) 1.7 (1.2-4.9) X10*3/uL [place] # (Auto) 0.9 (0.1-1.2) X10*3/uL Eos # (Auto) 0.2 (0.0-0.4) X10*3/uL Baso # (Auto) 0.0 (0.0-0.2) X10*3/uL Abs Immat Gran (auto) 0.04 H (0.00-0.03) X10*3/uL Absolute Neuts (auto) 8.7 H (2.0-8.3) x10*3/uL Absolute Nucleated RBC 0.000 (0.0-0.012) X10*3/uL Nucleated RBC % (auto) 0.0 (0.0-0.2) /100WBC Sodium 142 (135-145) mmol/L Potassium 3.9 (3.3-5.1) mmol/L Chloride 109 H (96-108) mmol/L Carbon Dioxide 23 (22-29) mmol/L Anion Gap 14 (12-20) BUN 20 H (9-16) mg/dL Creatinine 0.91 (0.5-1.4) mg/dL Estim Creat Clear Calc 85.4 Estimated GFR > 60 Random Glucose 113 (60-115) mg/dL Calcium 9.4 (8.4-10.2) mg/dL Total Bilirubin 0.7 (0.0-1.0) mg/dL AST 21 (5-31) U/L ALT 20 (0-31) U/L Alkaline Phosphatase 95 (39-117) U/L C-Reactive Protein 0.75 H (< or = 0.50) mg/dL Total Protein 7.5 (6.5-8.0) g/dL Albumin 4.4 (3.5-5.0) g/dL Lipase 30 (8-78) U/L COVID-19 (GEE) Negative (Negative) COVID-19 Clin Com See Note Discharge Plan Discharge Clinical Impression: Enteritis, Watery diarrhea Patient Disposition: Home, Self-Care Instructions: Acute Diarrhea (ED), Enteritis (ED) Additional Instructions: Your testing in the emergency room today suggest that you have but is probably a viral condition in your abdomen causing diarrhea. I would plan on resting and taking it easy today. Continue your regular medications. Drink clear fluids. For solid foods eat simple foods like toast or well cooked rice or bananas or applesauce. You may use Imodium as needed for ongoing loose stools. Follow the directions on the box. I suspect you may have watery stools for a couple of days but after that I hope you start feeling better. Return to the emergency room if you feel significantly worse. Prescriptions: No Action lovastatin 20 mg tablet 20 mg PO DAILY Qty: 90 8RF furosemide 20 mg tablet 20 mg PO DAILY 90 Days Qty: 90 8RF atenolol 50 mg tablet 50 mg PO DAILY Qty: 90 8RF levothyroxine 175 mcg tablet 175 mcg PO DAILY Qty: 90 4RF omeprazole 20 mg capsule,delayed release(DR/EC) 20 mg PO DAILY Referrals: Ilia Stanton MD [Primary Care Provider] -
[2023-12-07 09:30] VITALS: BP 102/66; PULSE 109; RESP 16; TEMP 36.6; O2SAT 96
== END 2023-12-07 09:31 | disposition home or self-care (01) ==
PROVIDERS: Student in an Organized Health Care Education/Training Program; Emergency Provider Emergency Medicine; PCP Internal Medicine
DX: K52.9 Noninfective gastroenteritis and colitis, unspecified (principal); R11.2 Nausea with vomiting, unspecified; Z11.52 Encounter for screening for COVID-19; Z79.899 Other long term (current) drug therapy
CPT/HCPCS: 36415; 74177; 80053; 83690; 85025; 86140; 87635; 96361; 96365; 96375; 99284; 99285; J1885; J2550; Q9967

== ENCOUNTER 2023-12-25 11:17 | Outpatient (AMB) | payer MEDICARE, SELFPAY ==
--- NOTE | 2023-12-25 11:15 | A.OFFPC_ITS ---
Vital Signs 12/25/23 11:15 Height 5 ft 9 in Intake Visit Reasons: Cold/Sore Throat/Green phlegm [phone] Chief Steward/Stewardess Required: No Lead Trainer: Not Required per policy Allergies bee pollen Allergy (Severe, Verified 12/25/23 11:15) Swelling ciprofloxacin [From Cipro] Allergy (Severe, Verified 12/25/23 11:15) RASH-ITCHING Penicillins Allergy (Intermediate, Verified 12/25/23 11:15) Rash Sulfa (Sulfonamide Antibiotics) [SULFA (SULFONAMIDE ANTIBIOTICS)] Allergy (Intermediate, Verified 12/25/23 11:15) HIVES Medication List - Last Reconciled 12/25/23 by Ilia Stanton MD atenolol 50 mg PO DAILY azithromycin take 500 mg today (day 1), then 250 mg for 4 days (days 2-5) PO furosemide 20 mg PO DAILY 90 days levothyroxine 175 mcg PO DAILY lovastatin 20 mg PO DAILY omeprazole 20 mg PO DAILY Tobacco use date assessed: 11/27/23 Dental Screening Dental Screen Date: 12/25/23 Did you have a dental visit in the last 12 months?: Yes Did you have a dental problem in the last 6 months where you did not have access to dental care?: No Was dental information given to patient?: Patient has dentist HPI Cold/Sore Throat/Green phlegm [phone] HPI Details cough for a week PFSH Medical History Hiatal hernia Peptic ulcer Hx of simple renal cyst History of fatty infiltration of liver Elevated cholesterol Thyroid disease HTN (hypertension) Surgical History History of endoscopy History of colonoscopy History of tonsillectomy and adenoidectomy History of bilateral cataract extraction Family History Father CVD (cardiovascular disease) Past heart attack Mother Breast cancer Bone metastases Brother Past heart attack Social History Household Members: None Housing: Apartment Are you a primary day care assistant to a significant other at home: No Do you presently have visiting nurse or other home services: No Alcohol intake: never Patient Tobacco Use Status: Never used Tobacco e-Cigarette/Vaping Use: Never Used Second Hand Smoke Exposure: No service: No Current occupational status: retired Cognitive needs: No Hearing needs: No Vision needs: No Questionnaire Thrive Questionnaire Date Thrive assessed: 11/27/23 SOWMYA-7 AMB Questionnaire SOWMYA-7 Date SOWMYA - 7 assessed: 11/27/23 Source: Developed by Drs. Nura Ash, Shelly Dickey, Berto Schmitt and colleagues, with an educational jermaine from [employer]. Review of Systems Const Denies chills, Denies headache(s) and Denies weight loss ENT Denies headache(s) Card Denies chest pain, Denies syncope, Denies irregular heart rhythm and Denies dyspnea Resp Denies chest congestion and Denies dyspnea GI Denies abdominal pain, Denies change in stool character, Denies nausea and Denies vomiting Musc Denies deformity and Denies joint swelling Neuro Denies syncope and Denies headache(s) Physical exam (Primary Care) Tobacco/Smoking Status: Tobacco use Status Tobacco use date assessed 11/27/23 12/25/23 11:17 Patient Tobacco Use Status Never used Tobacco 12/25/23 11:17 e-Cigarette/Vaping Use Never Used 12/25/23 11:17 Thrive Assessment: Date of Thrive Assessment Date Thrive assessed 11/27/23 12/25/23 11:17 Telehealth Telehealth Location of provider rendering services: practice address Location of patient: address on file Patient Identification confirmed using: Name, : Yes Telehealth method: voice only Patient verbally consented to treatment: Yes Patient verbally consented to billing insurance company: Yes Patient informed of any privacy concerns related to visit: Yes Minutes spent on Phone/Video with Pt.: 15 (telephone) Assessment and Plan Assessment & Plan (1) Cough: Code(s): R05.9 - Cough, unspecified Plan: rx sent Medications: New benzonatate 100 mg PO TID PRN 60 caps 0RF cough Coding Level of Care Code Tele Est Pt Level 3 (51796) Diagnoses Cough R05.9
== END 2023-12-25 14:21 | disposition home or self-care (01) ==
LOC: HO.HMGH 11:17
PROVIDERS: PCP Internal Medicine; Visit Provider Internal Medicine
DX: R05.9 Cough, unspecified (principal)
CPT/HCPCS: G2252

== ENCOUNTER 2024-02-16 06:03 | Outpatient (REF) | payer MEDICARE, SELFPAY ==
[2024-02-16 06:16] LABS: MANUAL DIFF FLAG NO
[2024-02-16 07:58] LABS: Basophils Absolute Auto 0.1 X10*3/uL (0.0-0.2); Basophils Percent Auto 0.8 % (0-2); Eosinophils Absolute Auto 0.2 X10*3/uL (0.0-0.4); Eosinophils Percent Auto 2.2 % (0-4); Hematocrit 42.8 % (37.0-47.0); Hemoglobin 13.9 g/dl (12.0-16.0); Imm Gran Abs Auto 0.02 X10*3/uL (0.00-0.03); Imm Gran Pct Auto 0.3 % (0.0-0.4); Lymphocytes Absolute Auto 2.6 X10*3/uL (1.2-4.9); Lymphocytes Percent Auto 35.7 % (20-40); Mean Corpuscular HGB Conc 32.5 g/dl (31.0-35.0); Mean Corpuscular Hemoglobin 30.3 pg (27.0-33.0); Mean Corpuscular Volume 93.4 fL (80.0-98.0); Mean Platelet Volume 9.8 fL (9.4-12.3); Monocytes Absolute Auto 0.5 X10*3/uL (0.1-1.2); Monocytes Percent Auto 6.3 % (2-11); Neutrophils Percent Auto 54.7 % (45-73); Platelet Count 229 X10*3/uL (160-400); Red Blood Count 4.58 X10*6/uL (4.20-5.50); Red Cell Distribution Width 13.2 % (11.0-16.0); White Blood Count 7.3 X10*3/uL (4.8-10.8)
[2024-02-16 08:33] LABS: Alanine Aminotransferase 16 U/L (0-31); Albumin Level 4.1 g/dL (3.5-5.0); Alkaline Phosphatase 91 U/L (39-117); Anion Gap 14 (12-20); Aspartate Amino Transferase 18 U/L (5-31); Bilirubin Total 0.6 mg/dL (0.0-1.0); Blood Urea Nitrogen 19 mg/dL (9-16); Calcium 9.4 mg/dL (8.4-10.2); Carbon Dioxide 26 mmol/L (22-29); Chloride 109 mmol/L (96-108); Cholesterol 215 mg/dL (<200); Estimated Glomerular Filt Rate > 60; Glucose Fasting 99 mg/dL (60-99); HDL Cholesterol 40 mg/dL (>40); LDL Cholesterol Calculated 133 mg/dL (<100); Potassium 3.9 mmol/L (3.3-5.1); Sodium 145 mmol/L (135-145); Total Protein 7.1 g/dL (6.5-8.0); Triglycerides 211 mg/dL (<150)
[2024-02-16 08:48] LABS: Thyroid Stimulating Hormone 0.18 uIU/mL (0.32-4.0)
== END 2024-02-16 06:04 | disposition home or self-care (01) ==
LOC: HO.LAB 06:03
PROVIDERS: PCP Internal Medicine; Visit Provider Internal Medicine
DX: E78.5 Hyperlipidemia, unspecified (principal); E03.9 Hypothyroidism, unspecified; D64.9 Anemia, unspecified; N28.9 Disorder of kidney and ureter, unspecified
CPT/HCPCS: 36415; 80053; 80061; 84443; 85025

== ENCOUNTER 2024-02-23 12:55 | Outpatient (AMB) | payer MEDICARE, SELFPAY ==
--- NOTE | 2024-02-23 12:58 | MHC.PC.OV ---
Vital Signs 02/23/24 13:00 Height 5 ft 9 in BMI Reason not done Patient refused/unable BP 120/64 Blood Pressure Location Lt brachial Position Sitting Pulse 48 L Pulse Source Pulse Oximeter Pulse Oximetry (%) 98 Oxygen Delivery Method Room Air Intake Visit Reasons: 6M. f/u Thyroid/Cholesterol Intake Note: Patient is here to follow up on thyroid, cholesterol. Home Administrator Required: No Utility Operator Yarn: Not Required per policy Accompanied by: Self / Same As Patient Allergies bee pollen Allergy (Severe, Verified 02/23/24 12:59) Swelling ciprofloxacin [From Cipro] Allergy (Severe, Verified 02/23/24 12:59) RASH-ITCHING Penicillins Allergy (Intermediate, Verified 02/23/24 12:59) Rash Sulfa (Sulfonamide Antibiotics) [SULFA (SULFONAMIDE ANTIBIOTICS)] Allergy (Intermediate, Verified 02/23/24 12:59) HIVES Medication List - Last Reconciled 02/23/24 by Ilia Stanton MD atenolol 50 mg PO DAILY furosemide 20 mg PO DAILY 90 days levothyroxine 175 mcg PO DAILY lovastatin 20 mg PO DAILY omeprazole 20 mg PO DAILY Tobacco use date assessed: 02/23/24 Fall risk assessment: No Falls in past year Last assessed Fall Risk: 02/23/24 Dental Screening Dental Screen Date: 12/25/23 HPI 6M. f/u Thyroid/Cholesterol HPI Details hypertension hyperlipidemia and hypothyroidism on rx; compliaant [facility] Medical History Hiatal hernia Peptic ulcer Hx of simple renal cyst History of fatty infiltration of liver Elevated cholesterol Thyroid disease HTN (hypertension) Surgical History History of endoscopy History of colonoscopy History of tonsillectomy and adenoidectomy History of bilateral cataract extraction Family History Father CVD (cardiovascular disease) Past heart attack Mother Breast cancer Bone metastases Brother Past heart attack Social History Household Members: None Housing: Apartment Are you a primary nursing care partner to a significant other at home: No Do you presently have visiting nurse or other home services: No Alcohol intake: never Patient Tobacco Use Status: Never used Tobacco e-Cigarette/Vaping Use: Never Used Second Hand Smoke Exposure: No service: No Current occupational status: retired Cognitive needs: No Hearing needs: No Vision needs: No Questionnaire Thrive Questionnaire Date Thrive assessed: 11/27/23 SOWMYA-7 AMB Questionnaire SOWMYA-7 Date SOWMYA - 7 assessed: 11/27/23 Source: Developed by Drs. Nura Ash, Shelly Dickey, Berto Schmitt and colleagues, with an educational jermaine from [employer]. Review of Systems Const Denies chills, Denies headache(s) and Denies weight loss ENT Denies headache(s) Card Denies chest pain, Denies syncope, Denies irregular heart rhythm and Denies dyspnea Resp Denies chest congestion, Denies cough and Denies dyspnea GI Denies abdominal pain, Denies change in stool character, Denies nausea and Denies vomiting Musc Denies deformity and Denies joint swelling Neuro Denies syncope and Denies headache(s) Physical exam (Primary Care) Vital Signs: Last Vital Signs Pulse 48 L 02/23/24 13:00 BP 120/64 02/23/24 13:00 Pulse Ox 98 02/23/24 13:00 Oxygen Delivery Method Room Air 02/23/24 13:00 Tobacco/Smoking Status: Tobacco use Status Tobacco use date assessed 02/23/24 02/23/24 13:04 Patient Tobacco Use Status Never used Tobacco 02/23/24 13:04 e-Cigarette/Vaping Use Never Used 02/23/24 13:04 Thrive Assessment: Date of Thrive Assessment Date Thrive assessed 11/27/23 02/23/24 13:04 Const General: cooperative, comfortable, no acute distress and alert Neck Neck: Yes no lymphadenopathy Thyroid: Thyroid normal Resp Effort & Inspection: normal respiratory effort Auscultation: clear to auscultation bilaterally Percussion: percussion normal Cardio Jugular venous distension: no JVD Palpation: normal PMI Rate: regular rate Rhythm: regular rhythm Heart sounds: S1 normal heart sound present and S2 normal heart sound present GI Inspection: Yes normal to inspection Palpation (GI): No hepatosplenomegaly present Skin General skin exam: no rashes or lesions noted Extrem General: Yes no clubbing, cyanosis or edema Assessment and Plan Assessment & Plan (1) Essential hypertension: Code(s): I10 - Essential (primary) hypertension Plan: stable; same dose (2) Other and unspecified hyperlipidemia: Code(s): E78.5 - Hyperlipidemia, unspecified Plan: stable; same dose (3) Hypothyroidism: Code(s): E03.9 - Hypothyroidism, unspecified Plan: same rx Orders: Orders Lipid Panel Today Z13.220 - Encounter for screening for lipoid disorders Thyroid Stimulating Hormone Today Z13.29 - Encounter for screening for other suspected endocrine disorder Coding Level of Care Code Est Pt Level 4 (04547) Diagnoses Essential hypertension I10 Other and unspecified hyperlipidemia E78.5 Hypothyroidism E03.9
[2024-02-23 13:00] VITALS: BP 120/64; PULSE 48; O2SAT 98
== END 2024-02-23 13:23 | disposition home or self-care (01) ==
PROVIDERS: PCP Internal Medicine; Visit Provider Internal Medicine
DX: I10 Essential (primary) hypertension (principal); E78.5 Hyperlipidemia, unspecified; E03.9 Hypothyroidism, unspecified
CPT/HCPCS: 99214

== ENCOUNTER 2024-05-01 08:33 | Outpatient (AMB) | payer MEDICARE, SELFPAY ==
[2024-05-01 08:47] VITALS: BP 118/76; PULSE 59; O2SAT 97
--- NOTE | 2024-05-01 08:47 | A.OFFPC_ITS ---
Vital Signs 05/01/24 08:47 Height 5 ft 9 in BMI Reason not done Patient refused/unable BP 118/76 Blood Pressure Location Lt brachial Position Sitting Pulse 59 Pulse Source Pulse Oximeter Pulse Oximetry (%) 97 Oxygen Delivery Method Room Air Intake Visit Reasons: Neck pain Pourer Off: Not Required per policy Accompanied by: Self / Same As Patient Allergies bee pollen Allergy (Severe, Verified 05/01/24 08:47) Swelling ciprofloxacin [From Cipro] Allergy (Severe, Verified 05/01/24 08:47) RASH-ITCHING Penicillins Allergy (Intermediate, Verified 05/01/24 08:47) Rash Sulfa (Sulfonamide Antibiotics) [SULFA (SULFONAMIDE ANTIBIOTICS)] Allergy (Intermediate, Verified 05/01/24 08:47) HIVES Medication List - Last Reconciled 05/01/24 by Ilia Stanton MD atenolol 50 mg PO DAILY furosemide 20 mg PO DAILY 90 days levothyroxine 175 mcg PO DAILY lovastatin 20 mg PO DAILY omeprazole 20 mg PO DAILY Tobacco use date assessed: 02/23/24 Fall risk assessment: No Falls in past year Last assessed Fall Risk: 05/01/24 Dental Screening Dental Screen Date: 12/25/23 HPI Neck pain HPI Details left sided neck pain for 2 weeks PFSH Medical History Hiatal hernia Peptic ulcer Hx of simple renal cyst History of fatty infiltration of liver Elevated cholesterol Thyroid disease HTN (hypertension) Surgical History History of endoscopy History of colonoscopy History of tonsillectomy and adenoidectomy History of bilateral cataract extraction Family History Father CVD (cardiovascular disease) Past heart attack Mother Breast cancer Bone metastases Brother Past heart attack Social History Household Members: None Housing: Apartment Are you a primary personal care worker to a significant other at home: No Do you presently have visiting nurse or other home services: No Alcohol intake: never Patient Tobacco Use Status: Never used Tobacco e-Cigarette/Vaping Use: Never Used Second Hand Smoke Exposure: No service: No Current occupational status: retired Cognitive needs: No Hearing needs: No Vision needs: No Questionnaire Thrive Questionnaire Date Thrive assessed: 11/27/23 SOWMYA-7 AMB Questionnaire SOWMYA-7 Date SOWMYA - 7 assessed: 11/27/23 Source: Developed by Drs. Nura Ash, Shelly Dickey, Berto nguyen nd colleagues, with an educational jermaine from [employer] Review of Systems Const Denies chills, Denies headache(s) and Denies weight loss ENT Denies headache(s) Card Denies chest pain, Denies syncope, Denies irregular heart rhythm and Denies dyspnea Resp Denies chest congestion, Denies cough and Denies dyspnea GI Denies abdominal pain, Denies change in stool character, Denies nausea and Denies vomiting Musc Denies deformity and Denies joint swelling Neuro Denies syncope and Denies headache(s) Physical exam (Primary Care) Vital Signs: Last Vital Signs Pulse 59 05/01/24 08:47 BP 118/76 05/01/24 08:47 Pulse Ox 97 05/01/24 08:47 Oxygen Delivery Method Room Air 05/01/24 08:47 Tobacco/Smoking Status: Tobacco use Status Tobacco use date assessed 02/23/24 05/01/24 08:48 Patient Tobacco Use Status Never used Tobacco 05/01/24 08:48 e-Cigarette/Vaping Use Never Used 05/01/24 08:48 Thrive Assessment: Date of Thrive Assessment Date Thrive assessed 11/27/23 05/01/24 08:48 Const General: cooperative, comfortable, no acute distress and alert Neck Neck: Yes no lymphadenopathy Thyroid: Thyroid normal Resp Effort & Inspection: normal respiratory effort Auscultation: clear to auscultation bilaterally Percussion: percussion normal Cardio Jugular venous distension: no JVD Palpation: normal PMI Rate: regular rate Rhythm: regular rhythm Heart sounds: S1 normal heart sound present and S2 normal heart sound present GI Inspection: Yes normal to inspection Palpation (GI): No hepatosplenomegaly present Skin General skin exam: no rashes or lesions noted Extrem General: Yes no clubbing, cyanosis or edema Assessment and Plan Assessment & Plan (1) Neck pain: Code(s): M54.2 - Cervicalgia Plan: has cervical muscle spasm; xr and rx Orders: Orders XR cervical spine 2V Today M54.2 - Cervicalgia Medications: New tizanidine 4 mg PO Q8H PRN 60 tabs 3RF muscle spasticity Coding Level of Care Code Est Pt Level 3 (90773) Diagnoses Neck pain M54.2
== END 2024-05-01 09:20 | disposition home or self-care (01) ==
PROVIDERS: PCP Internal Medicine; Visit Provider Internal Medicine
DX: M54.2 Cervicalgia (principal)
CPT/HCPCS: 99213

== ENCOUNTER 2024-05-01 09:25 | Outpatient (REF) | payer MEDICARE, SELFPAY ==
--- NOTE | ~2024-05-01 | XR_ITS ---
EXAMINATION: XR CERVICAL SPINE CLINICAL INFORMATION: Patient states left-sided neck pain, hears a crunching when moving her neck. COMPARISON: None available. TECHNIQUE: 3 views of the cervical spine were obtained. FINDINGS: Diffuse demineralization. Multilevel cervical spondylosis most notable at C5-C6 with loss of disc space height and large anterior osteophytes. Moderate loss of disc space height at C7-T1. Alignment maintained. XR/XR cervical spine 2V IMPRESSION: Multilevel cervical spondylosis most notable at C5-C6.
== END 2024-05-01 09:26 | disposition home or self-care (01) ==
LOC: HO.XRAY 09:25
PROVIDERS: PCP Internal Medicine; Visit Provider Internal Medicine
DX: M54.2 Cervicalgia (principal)
CPT/HCPCS: 72040

== ENCOUNTER 2024-06-20 09:55 | Outpatient (AMB) | payer MEDICARE, SELFPAY ==
--- NOTE | 2024-06-20 09:57 | A.OFFPC_ITS ---
Vital Signs 06/20/24 09:58 Height 5 ft 9 in BMI Reason not done Patient refused/unable BP 114/72 Blood Pressure Location Lt brachial Position Sitting Pulse 59 Pulse Source Pulse Oximeter Pulse Oximetry (%) 96 Oxygen Delivery Method Room Air Intake Visit Reasons: stomache pain Investments Manager Required: No Accompanied by: Self / Same As Patient Allergies bee pollen Allergy (Severe, Verified 06/20/24 09:58) Swelling ciprofloxacin [From Cipro] Allergy (Severe, Verified 06/20/24 09:58) RASH-ITCHING Penicillins Allergy (Intermediate, Verified 06/20/24 09:58) Rash Sulfa (Sulfonamide Antibiotics) [SULFA (SULFONAMIDE ANTIBIOTICS)] Allergy (Intermediate, Verified 06/20/24 09:58) HIVES Medication List - Last Reconciled 06/21/24 by Ilia Stanton MD atenolol 50 mg PO DAILY dicyclomine 20 mg PO QID furosemide 20 mg PO DAILY 90 days levothyroxine 175 mcg PO DAILY lovastatin 20 mg PO DAILY omeprazole 20 mg PO DAILY tizanidine 4 mg PO Q8H PRN Tobacco use date assessed: 02/23/24 Fall risk assessment: No Falls in past year Last assessed Fall Risk: 06/20/24 Dental Screening Dental Screen Date: 12/25/23 HPI stomache pain HPI Details LUQ abdominal discomfort and urgency to have a BM for a week; no n/v PFSH Medical History Hiatal hernia Peptic ulcer Hx of simple renal cyst History of fatty infiltration of liver Elevated cholesterol Thyroid disease HTN (hypertension) Surgical History History of endoscopy History of colonoscopy History of tonsillectomy and adenoidectomy History of bilateral cataract extraction Family History Father CVD (cardiovascular disease) Past heart attack Mother Breast cancer Bone metastases Brother Past heart attack Social History Household Members: None Housing: Apartment Are you a primary director critical care to a significant other at home: No Do you presently have visiting nurse or other home services: No Alcohol intake: never Patient Tobacco Use Status: Never used Tobacco e-Cigarette/Vaping Use: Never Used Second Hand Smoke Exposure: No service: No Current occupational status: retired Cognitive needs: No Hearing needs: No Vision needs: No Questionnaire PHQ-9 Over the last 2 weeks, how often have you been bothered by any of the following problems? 1. Little interest or pleasure in doing things: not at all 2. Feeling down, depressed, or hopeless: not at all 3. Trouble falling or staying asleep, or sleeping too much: not at all 4. Feeling tired or having little energy: not at all 5. Poor appetite or overeating: not at all 6. Feeling bad about yourself - or that you are a failure or have let yourself or your family down: not at all 7. Trouble concentrating on things, such as reading the newspaper or watching television: not at all 8. Moving or speaking so slowly that other people could have noticed. Or the opposite - being so fidgety or restless that you have been moving around a lot more than usual: not at all 9. Thoughts that you would be better off or of hurting yourself in some way: not at all Total score: 0 Depression Screening Interpretation: Positive Depression Screening Done: Yes Source: Developed by Drs. Nura Ash, Berto Sandy and colleagues, with an educational jermaine from [facility]. Thrive Questionnaire Date Thrive assessed: 11/27/23 AUDIT C Alcohol Use Questionnaire (AUDIT-C) 1. How often do you have a drink containing alcohol?: Never Total Score: 0 Score Reviewed/Action Taken: Yes SOWMYA-7 AMB Questionnaire SOWMYA-7 Date SOWMYA - 7 assessed: 11/27/23 Source: Developed by Drs. Nura Ash, Berto Sandy and colleagues, with an educational jermaine from [facility]. Review of Systems Const Denies chills, Denies headache(s) and Denies weight loss ENT Denies headache(s) Card Denies chest pain, Denies syncope, Denies irregular heart rhythm and Denies dyspnea Resp Denies chest congestion, Denies cough and Denies dyspnea GI Denies change in stool character, Denies nausea and Denies vomiting Musc Denies deformity and Denies joint swelling Neuro Denies syncope and Denies headache(s) Physical exam (Primary Care) Vital Signs: Last Vital Signs Pulse 59 06/20/24 09:58 BP 114/72 06/20/24 09:58 Pulse Ox 96 06/20/24 09:58 Oxygen Delivery Method Room Air 06/20/24 09:58 Tobacco/Smoking Status: Tobacco use Status Tobacco use date assessed 02/23/24 06/20/24 09:59 Patient Tobacco Use Status Never used Tobacco 06/20/24 09:59 e-Cigarette/Vaping Use Never Used 06/20/24 09:59 PHQ-9: PHQ-9 Score PHQ-9: Total score 0 06/20/24 09:59 Depression Screening Interpretation: Positive Thrive Assessment: Date of Thrive Assessment Date Thrive assessed 11/27/23 06/20/24 09:59 Const General: cooperative, comfortable, no acute distress and alert Neck Neck: Yes no lymphadenopathy Thyroid: Thyroid normal Resp Effort & Inspection: normal respiratory effort Auscultation: clear to auscultation bilaterally Percussion: percussion normal Cardio Jugular venous distension: no JVD Palpation: normal PMI Rate: regular rate Rhythm: regular rhythm Heart sounds: S1 normal heart sound present and S2 normal heart sound present GI Inspection: Yes normal to inspection Palpation (GI): No hepatosplenomegaly present Skin General skin exam: no rashes or lesions noted Extrem General: Yes no clubbing, cyanosis or edema Assessment and Plan Assessment & Plan (1) Abdominal pain: Code(s): R10.9 - Unspecified abdominal pain Plan: probably benign process; try antispasmotics first Orders: Orders Uric Acid Today M10.9 - Gout, unspecified Medications: New 2 dicyclomine 20 mg PO QID 30 tabs 3RF Coding Level of Care Code Est Pt Level 3 (99924) Diagnoses Abdominal pain R10.9
[2024-06-20 09:58] VITALS: BP 114/72; PULSE 59; O2SAT 96
== END 2024-06-20 10:36 | disposition home or self-care (01) ==
PROVIDERS: PCP Internal Medicine; Visit Provider Internal Medicine
DX: R10.9 Unspecified abdominal pain (principal)
CPT/HCPCS: 99213

== ENCOUNTER 2024-06-21 05:57 | Outpatient (REF) | payer MEDICARE, SELFPAY ==
[2024-06-21 07:54] LABS: Cholesterol 213 mg/dL (<200); HDL Cholesterol 42 mg/dL (>40); LDL Cholesterol Calculated 128 mg/dL (<100); Triglycerides 216 mg/dL (<150); Uric Acid 7.3 mg/dL (2.4-5.7)
[2024-06-21 08:12] LABS: Thyroid Stimulating Hormone 1.01 uIU/mL (0.32-4.0)
== END 2024-06-21 05:58 | disposition home or self-care (01) ==
LOC: HO.LAB 05:57
PROVIDERS: PCP Internal Medicine; Visit Provider Internal Medicine
DX: Z13.220 Encounter for screening for lipoid disorders (principal); Z13.29 Encounter for screening for other suspected endocrine disorder; M10.9 Gout, unspecified
CPT/HCPCS: 36415; 80061; 84443; 84550

== ENCOUNTER 2024-07-25 10:25 | Outpatient (AMB) | payer MEDICARE, SELFPAY ==
[2024-07-25 10:28] VITALS: BP 114/70; PULSE 68; O2SAT 97
--- NOTE | 2024-07-25 10:28 | MHC.PC.OV ---
Vital Signs 07/25/24 10:28 Height 5 ft 9 in BMI Reason not done Patient refused/unable BP 114/70 Blood Pressure Location Lt brachial Position Sitting Pulse 68 Pulse Source Pulse Oximeter Pulse Oximetry (%) 97 Oxygen Delivery Method Room Air Intake Visit Reasons: Stomach issues Small Business Consultant Required: No Accompanied by: Self / Same As Patient Allergies bee pollen Allergy (Severe, Verified 07/25/24 10:30) Swelling ciprofloxacin [From Cipro] Allergy (Severe, Verified 07/25/24 10:30) RASH-ITCHING Penicillins Allergy (Intermediate, Verified 07/25/24 10:30) Rash Sulfa (Sulfonamide Antibiotics) [SULFA (SULFONAMIDE ANTIBIOTICS)] Allergy (Intermediate, Verified 07/25/24 10:30) HIVES Medication List - Last Reconciled 07/26/24 by Ilia Stanton MD atenolol 50 mg PO DAILY dicyclomine 20 mg PO QID dicyclomine 20 mg PO QID furosemide 20 mg PO DAILY 90 days levothyroxine 175 mcg PO DAILY lovastatin 20 mg PO DAILY omeprazole 20 mg PO DAILY tizanidine 4 mg PO Q8H PRN Tobacco use date assessed: 02/23/24 Fall risk assessment: No Falls in past year Last assessed Fall Risk: 07/25/24 Dental Screening Dental Screen Date: 12/25/23 HPI Stomach issues HPI Details lower abd cramps and diarrhea for a few days PFSH Medical History Hiatal hernia Peptic ulcer Hx of simple renal cyst History of fatty infiltration of liver Elevated cholesterol Thyroid disease HTN (hypertension) Surgical History History of endoscopy History of colonoscopy History of tonsillectomy and adenoidectomy History of bilateral cataract extraction Family History Father CVD (cardiovascular disease) Past heart attack Mother Breast cancer Bone metastases Brother Past heart attack Social History Household Members: None Housing: Apartment Are you a primary eye care professional to a significant other at home: No Do you presently have visiting nurse or other home services: No Alcohol intake: never Patient Tobacco Use Status: Never used Tobacco Tobacco use type: Cigarette e-Cigarette/Vaping Use: Never Used Second Hand Smoke Exposure: No service: No Current occupational status: retired Cognitive needs: No Hearing needs: No Vision needs: No Questionnaire PHQ-9 Over the last 2 weeks, how often have you been bothered by any of the following problems? 1. Little interest or pleasure in doing things: not at all 2. Feeling down, depressed, or hopeless: not at all 3. Trouble falling or staying asleep, or sleeping too much: not at all 4. Feeling tired or having little energy: not at all 5. Poor appetite or overeating: not at all 6. Feeling bad about yourself - or that you are a failure or have let yourself or your family down: not at all 7. Trouble concentrating on things, such as reading the newspaper or watching television: not at all 8. Moving or speaking so slowly that other people could have noticed. Or the opposite - being so fidgety or restless that you have been moving around a lot more than usual: not at all 9. Thoughts that you would be better off or of hurting yourself in some way: not at all Total score: 0 Depression Screening Interpretation: Positive Depression Screening Done: Yes Source: Developed by Drs. Nura Ash, Berto Sandy and colleagues, with an educational jermaine from [employer]. Thrive Questionnaire Date Thrive assessed: 11/27/23 Are you currently unemployed and looking for a job?: Yes AUDIT C Alcohol Use Questionnaire (AUDIT-C) 1. How often do you have a drink containing alcohol?: Never Total Score: 0 Score Reviewed/Action Taken: Yes SOWMYA-7 AMB Questionnaire SOWMYA-7 Date SOWMYA - 7 assessed: 11/27/23 Source: Developed by Shelly Colbert Kurt Kroenke and colleagues, with an educational jermaine from [employer]. Review of Systems Const Denies chills, Denies headache(s) and Denies weight loss ENT Denies headache(s) Card Denies chest pain, Denies syncope, Denies irregular heart rhythm and Denies dyspnea Resp Denies chest congestion, Denies cough and Denies dyspnea Musc Denies deformity and Denies joint swelling Neuro Denies syncope and Denies headache(s) Physical exam (Primary Care) Vital Signs: Last Vital Signs Pulse 68 07/25/24 10:28 BP 114/70 07/25/24 10:28 Pulse Ox 97 07/25/24 10:28 Oxygen Delivery Method Room Air 07/25/24 10:28 Tobacco/Smoking Status: Tobacco use Status Tobacco use date assessed 02/23/24 07/25/24 10:33 Patient Tobacco Use Status Never used Tobacco 07/25/24 10:33 Tobacco use type Cigarette 07/25/24 10:33 e-Cigarette/Vaping Use Never Used 07/25/24 10:33 PHQ-9: PHQ-9 Score PHQ-9: Total score 0 07/25/24 10:33 Depression Screening Interpretation: Positive Thrive Assessment: Date of Thrive Assessment Date Thrive assessed 11/27/23 07/25/24 10:33 Const General: cooperative, comfortable, no acute distress and alert Neck Neck: Yes no lymphadenopathy Thyroid: Thyroid normal Resp Effort & Inspection: normal respiratory effort Auscultation: clear to auscultation bilaterally Percussion: percussion normal Cardio Jugular venous distension: no JVD Palpation: normal PMI Rate: regular rate Rhythm: regular rhythm Heart sounds: S1 normal heart sound present and S2 normal heart sound present GI Inspection: Yes normal to inspection Palpation (GI): No hepatosplenomegaly present Skin General skin exam: no rashes or lesions noted Extrem General: Yes no clubbing, cyanosis or edema Assessment and Plan Assessment & Plan (1) Abdominal pain: Code(s): R10.9 - Unspecified abdominal pain Plan: labs and rx Orders: Orders Basic Metabolic Panel 07/25/24 R10.9 - Unspecified abdominal pain Complete Blood Count Auto Diff 07/25/24 Z13.0 - Encounter for screening for diseases of the blood and blood-forming organs and certain disorders involving the immune mechanism Medications: New dicyclomine 20 mg PO QID 30 tabs 3RF Coding Level of Care Code Est Pt Level 3 (41347) Diagnoses Abdominal pain R10.9
== END 2024-07-25 10:44 | disposition home or self-care (01) ==
PROVIDERS: PCP Internal Medicine; Visit Provider Internal Medicine
DX: R10.9 Unspecified abdominal pain (principal)

== ENCOUNTER 2024-07-25 10:25 | Outpatient (REF) | payer MEDICARE, SELFPAY ==
[2024-07-25 11:23] LABS: MANUAL DIFF FLAG NO
[2024-07-25 12:26] LABS: Basophils Absolute Auto 0.1 X10*3/uL (0.0-0.2); Basophils Percent Auto 0.6 % (0-2); Eosinophils Absolute Auto 0.1 X10*3/uL (0.0-0.4); Eosinophils Percent Auto 1.5 % (0-4); Hematocrit 42.6 % (37.0-47.0); Hemoglobin 13.8 g/dl (12.0-16.0); Imm Gran Abs Auto 0.04 X10*3/uL (0.00-0.03); Imm Gran Pct Auto 0.5 % (0.0-0.4); Lymphocytes Absolute Auto 2.8 X10*3/uL (1.2-4.9); Lymphocytes Percent Auto 32.7 % (20-40); Mean Corpuscular HGB Conc 32.4 g/dl (31.0-35.0); Mean Corpuscular Hemoglobin 30.9 pg (27.0-33.0); Mean Corpuscular Volume 95.5 fL (80.0-98.0); Mean Platelet Volume 9.5 fL (9.4-12.3); Monocytes Absolute Auto 0.7 X10*3/uL (0.1-1.2); Monocytes Percent Auto 7.6 % (2-11); Neutrophils Absolute Auto 4.9 x10*3/uL (2.0-8.3); Neutrophils Percent Auto 57.1 % (45-73); Platelet Count 263 X10*3/uL (160-400); Red Blood Count 4.46 X10*6/uL (4.20-5.50); White Blood Count 8.5 X10*3/uL (4.8-10.8)
[2024-07-25 13:00] LABS: Anion Gap 11 (12-20); Blood Urea Nitrogen 11 mg/dL (9-16); Calcium 9.5 mg/dL (8.4-10.2); Carbon Dioxide 27 mmol/L (22-29); Chloride 107 mmol/L (96-108); Estimated Glomerular Filt Rate 57; Glucose Random 89 mg/dL (60-115); Potassium 3.8 mmol/L (3.3-5.1); Sodium 141 mmol/L (135-145)
== END 2024-07-25 10:26 | disposition home or self-care (01) ==
LOC: HO.LAB 10:25
PROVIDERS: PCP Internal Medicine; Visit Provider Internal Medicine
DX: R10.9 Unspecified abdominal pain (principal); R19.7 Diarrhea, unspecified; Z13.0 Encounter for screening for diseases of the blood and blood-forming organs and certain disorders involving the immune mechanism
CPT/HCPCS: 36415; 80048; 85025; 96127; 99212

== ENCOUNTER 2024-08-23 06:01 | Outpatient (REF) | payer MEDICARE, SELFPAY ==
[2024-08-23 08:22] LABS: Cholesterol 212 mg/dL (<200); HDL Cholesterol 44 mg/dL (>40); LDL Cholesterol Calculated 136 mg/dL (<100); Triglycerides 162 mg/dL (<150)
[2024-08-23 08:40] LABS: Thyroid Stimulating Hormone 0.41 uIU/mL (0.32-4.0)
== END 2024-08-23 06:02 | disposition home or self-care (01) ==
LOC: HO.LAB 06:01
PROVIDERS: PCP Internal Medicine; Visit Provider Internal Medicine
DX: Z13.29 Encounter for screening for other suspected endocrine disorder (principal); Z13.220 Encounter for screening for lipoid disorders
CPT/HCPCS: 36415; 80061; 84443

== ENCOUNTER 2024-08-26 09:14 | Outpatient (AMB) | payer MEDICARE, SELFPAY ==
--- NOTE | 2024-08-26 09:18 | A.OFFPC_ITS ---
Vital Signs 08/26/24 09:19 Height 5 ft 9 in BMI Reason not done Patient refused/unable BP 114/62 Blood Pressure Location Lt brachial Position Sitting Pulse 70 Pulse Source Pulse Oximeter Pulse Oximetry (%) 98 Oxygen Delivery Method Room Air Intake Visit Reasons: 6mof\u Social Services Director Required: No Accompanied by: Self / Same As Patient Allergies bee pollen Allergy (Severe, Verified 08/26/24 09:20) Swelling ciprofloxacin [From Cipro] Allergy (Severe, Verified 08/26/24 09:20) RASH-ITCHING Penicillins Allergy (Intermediate, Verified 08/26/24 09:20) Rash Sulfa (Sulfonamide Antibiotics) [SULFA (SULFONAMIDE ANTIBIOTICS)] Allergy (Intermediate, Verified 08/26/24 09:20) HIVES Medication List - Last Reconciled 08/26/24 by Ilia Stanton MD atenolol 50 mg PO DAILY dicyclomine 20 mg PO QID dicyclomine 20 mg PO QID furosemide 20 mg PO DAILY 90 days levothyroxine 175 mcg PO DAILY lovastatin 20 mg PO DAILY omeprazole 20 mg PO DAILY tizanidine 4 mg PO Q8H PRN Tobacco use date assessed: 02/23/24 Fall risk assessment: No Falls in past year Last assessed Fall Risk: 08/26/24 Dental Screening Dental Screen Date: 12/25/23 HPI 6mof\u HPI Details hypertension on rx; doing well; compliant COUNT INCLUDES [facility] Medical History Hiatal hernia Peptic ulcer Hx of simple renal cyst History of fatty infiltration of liver Elevated cholesterol Thyroid disease HTN (hypertension) Surgical History History of endoscopy History of colonoscopy History of tonsillectomy and adenoidectomy History of bilateral cataract extraction Family History Father CVD (cardiovascular disease) Past heart attack Mother Breast cancer Bone metastases Brother Past heart attack Social History Household Members: None Housing: Apartment Are you a primary patient care secretary to a significant other at home: No Do you presently have visiting nurse or other home services: No Alcohol intake: never Patient Tobacco Use Status: Never used Tobacco Tobacco use type: Cigarette e-Cigarette/Vaping Use: Never Used Second Hand Smoke Exposure: No service: No Current occupational status: retired Cognitive needs: No Hearing needs: No Vision needs: No Questionnaire PHQ-9 Over the last 2 weeks, how often have you been bothered by any of the following problems? 1. Little interest or pleasure in doing things: not at all 2. Feeling down, depressed, or hopeless: not at all 3. Trouble falling or staying asleep, or sleeping too much: not at all 4. Feeling tired or having little energy: not at all 5. Poor appetite or overeating: not at all 6. Feeling bad about yourself - or that you are a failure or have let yourself or your family down: not at all 7. Trouble concentrating on things, such as reading the newspaper or watching television: not at all 8. Moving or speaking so slowly that other people could have noticed. Or the opposite - being so fidgety or restless that you have been moving around a lot more than usual: not at all 9. Thoughts that you would be better off or of hurting yourself in some way: not at all Total score: 0 Depression Screening Interpretation: Positive Depression Screening Done: Yes Source: Developed by Drs. Nura Ash, Shelly Dickey, Berto Schmitt and colleagues, with an educational jermaine from [employer]. Thrive Questionnaire Date Thrive assessed: 11/27/23 Are you currently unemployed and looking for a job?: Yes AUDIT C Alcohol Use Questionnaire (AUDIT-C) 1. How often do you have a drink containing alcohol?: Never Total Score: 0 Score Reviewed/Action Taken: Yes SOWMYA-7 AMB Questionnaire SOWMYA-7 Date SOWMYA - 7 assessed: 11/27/23 Source: Developed by Shelly Colbert Kurt Kroenke and colleagues, with an educational jermaine from [employer]. Review of Systems Const Denies chills, Denies headache(s) and Denies weight loss ENT Denies headache(s) Card Denies chest pain, Denies syncope, Denies irregular heart rhythm and Denies dyspnea Resp Denies chest congestion, Denies cough and Denies dyspnea GI Denies abdominal pain, Denies change in stool character, Denies nausea and Denies vomiting Musc Denies deformity and Denies joint swelling Neuro Denies syncope and Denies headache(s) Physical exam (Primary Care) Vital Signs: Last Vital Signs Pulse 70 08/26/24 09:19 BP 114/62 08/26/24 09:19 Pulse Ox 98 08/26/24 09:19 Oxygen Delivery Method Room Air 08/26/24 09:19 Tobacco/Smoking Status: Tobacco use Status Tobacco use date assessed 02/23/24 08/26/24 09:23 Patient Tobacco Use Status Never used Tobacco 08/26/24 09:23 Tobacco use type Cigarette 08/26/24 09:23 e-Cigarette/Vaping Use Never Used 08/26/24 09:23 PHQ-9: PHQ-9 Score PHQ-9: Total score 0 08/26/24 09:23 Depression Screening Interpretation: Positive Thrive Assessment: Date of Thrive Assessment Date Thrive assessed 11/27/23 08/26/24 09:23 Const General: cooperative, comfortable, no acute distress and alert Neck Neck: Yes no lymphadenopathy Thyroid: Thyroid normal Resp Effort & Inspection: normal respiratory effort Auscultation: clear to auscultation bilaterally Percussion: percussion normal Cardio Jugular venous distension: no JVD Palpation: normal PMI Rate: regular rate Rhythm: regular rhythm Heart sounds: S1 normal heart sound present and S2 normal heart sound present GI Inspection: Yes normal to inspection Palpation (GI): No hepatosplenomegaly present Skin General skin exam: no rashes or lesions noted Extrem General: Yes no clubbing, cyanosis or edema Coding Level of Care Code Est Pt Level 3 (85501) Diagnoses Essential hypertension I10 Assessment & Plan Assessment & Plan (1) Essential hypertension: Code(s): I10 - Essential (primary) hypertension Category: Medical Plan: stable; same rx Orders: Orders Comprehensive [place]. Panel Fast Today Z13.9 - Encounter for screening, unspecified Thyroid Stimulating Hormone Today Z13.29 - Encounter for screening for other suspected endocrine disorder Complete Blood Count Auto Diff Today Z13.0 - Encounter for screening for diseases of the blood and blood-forming organs and certain disorders involving the immune mechanism Lipid Panel Today Z13.220 - Encounter for screening for lipoid disorders
[2024-08-26 09:19] VITALS: BP 114/62; PULSE 70; O2SAT 98
== END 2024-08-26 09:57 | disposition home or self-care (01) ==
PROVIDERS: PCP Internal Medicine; Visit Provider Internal Medicine
DX: I10 Essential (primary) hypertension (principal)

== ENCOUNTER → 2024-08-26 09:14 | Outpatient (BNVA) | payer MEDICARE, SELFPAY | PROVIDERS: PCP Internal Medicine; Visit Provider Internal Medicine | DX: I10 Essential (primary) hypertension (principal) | CPT/HCPCS: 96127; 99212 ==

== ENCOUNTER 2024-09-01 13:29 | Emergency (ER) | payer MEDICARE, SELFPAY ==
--- NOTE | 2024-09-01 13:32 | ED_ITS ---
HPI - General Adult General Chief complaint: Abdominal Pain Stated complaint: Lower abd pain, frequent voiding Time Seen by Provider: 09/01/24 15:49 History of Present Illness ED Provider: Derrick Meza MD HPI narrative: This is a 68-year-old female with a history of chronic intermittent tenesmus and lower abdominal discomfort. She has a history of transvaginal uterine polyp removal and chronic abdominal pain. She denies dark or bloody stool fevers. Today she had a particularly painful episode this morning with 4 different bouts of transient resolving or abdominal discomfort associated with urge to move her bowels. She is had a colonoscopy 2020 reports to me this is normal. Related Data Previous Rx's ?Medication ?Instructions ?Recorded furosemide 20 mg tablet 20 mg PO DAILY 90 days #90 tabs 02/01/24 lovastatin 20 mg tablet 20 mg PO DAILY #90 tabs 02/01/24 omeprazole 20 mg capsule,delayed 20 mg PO DAILY #30 caps 02/02/24 release atenolol 50 mg tablet 50 mg PO DAILY #90 tabs 03/15/24 levothyroxine 175 mcg tablet 175 mcg PO DAILY #90 tabs 04/09/24 tizanidine 4 mg tablet 4 mg PO Q8H PRN muscle spasticity 05/01/24 #60 tabs dicyclomine 20 mg tablet 20 mg PO QID #30 tabs 06/20/24 dicyclomine 20 mg tablet 20 mg PO QID #30 tabs 07/25/24 Allergies Allergy/AdvReac Type Severity Reaction Status Date / Time bee pollen Allergy Severe Swelling Verified 09/01/24 13:34 ciprofloxacin [From Cipro] Allergy Severe RASH-ITCHIN Verified 09/01/24 13:34 G Penicillins Allergy Intermediate Rash Verified 09/01/24 13:34 Sulfa (Sulfonamide Allergy Intermediate HIVES Verified 09/01/24 13:34 Antibiotics) [SULFA (SULFONAMIDE ANTIBIOTICS)] FOR[facility]LY [facility], [facility] Past Medical History Medical History Hiatal hernia Peptic ulcer Hx of simple renal cyst History of fatty infiltration of liver Elevated cholesterol Thyroid disease HTN (hypertension) Surgical History History of endoscopy History of colonoscopy History of tonsillectomy and adenoidectomy History of bilateral cataract extraction Family History Family History Father CVD (cardiovascular disease) Past heart attack Mother Breast cancer Bone metastases Brother Past heart attack Social History Social History Household Members: None Housing: Apartment Are you a primary daycare manager to a significant other at home: No Do you presently have visiting nurse or other home services: No Alcohol intake: never Patient Tobacco Use Status: Never used Tobacco Tobacco use type: Cigarette Smoked in Last 30 Days: No e-Cigarette/Vaping Use: Never Used Second Hand Smoke Exposure: No Use of substances other than those prescribed or required for medical reasons: No Advance Directives: No Advance Directives Information Provided: Yes Do you have a plan to hurt others: No Plan service: No Current occupational status: retired Cognitive needs: No Hearing needs: No Vision needs: No Physical Exam ED Vital Signs: Vital Signs - 24 hr 09/01/24 13:33 09/01/24 17:41 Temperature 97.9 F 97.9 F Pulse Rate 68 68 Respiratory Rate 18 18 Blood Pressure 137/59 L 137/59 L Pulse Oximetry 97 97 Oxygen Delivery Method Room Air Room Air BMI result Body Mass Index 41.4 Const Other: EXAM: Gen: Alert, awake, well appearing, well hydrated. Head: Atraumatic Eyes: Anicteric, Normal conjunctiva. ENT: Moist mucosa, no pallor. ? Neck: Supple. Respiratory: Breathing comfortably, No distress.Clear to auscultation bilaterally, symmetric chest expansion, No wheeze, rales, ronchi. Cardiovascular: Regular rate and rhythm. No murmurs or rub. Well perfused periphery, warm extremities. No edema. ? Abdominal: Soft, no objective distension. No palpable masses or obvious organomegaly. Minimally tender lower abdomen : No flank tenderness. Neuro: Alert. Gross movement of all extremities intact. ? Vital signs: See flowsheet Course Course Course Narrative: This is an RME: Additional HPI, ROS, PE not included below will be deferred to primary provider. RME assessment and note performed by: Yamini Guzman PA-C This is a [id number]-female, with a past medical history of peptic ulcers, HTN, thyroid disease, who presents to the ER with a complaint of lower abdominal cramping since this morning. Reporting loose stool (4 episodes this AM). Has had similar symptoms in the past but has been unable to follow-up with GI, states that she has an appointment in October. No fevers, chest pain, SOB. Reporting D&C in January due to precancerous cells. Plan: Labs, EKG, UA, further ER evaluation needed. Medical Decision Making Medical Decision Making MDM Narrative: 68-year-old female with chronic intermittent lower abdominal discomfort slightly worsened today with tenesmus. No GI bleeding. Mildly tender of the abdomen. Vitals stable reassuring lab work she and I had a lengthy shared decision-making discussion I offered CT though she did not have any particular findings to suggest acute surgical process. She declined to wait for an abdominal CT prefer to follow up with her primary and/or GI doctor. She does not have any urinary symptoms to suggest urologic etiology. She has chronic vaginal/uterine pain since her polyp removal that she reports it is different than this discomfort she is experiencing Lab Data 09/01/24 13:51 09/01/24 13:50 Labs: Lab Results 09/01/24 09/01/24 Range/Units 13:50 13:51 WBC 7.7 (4.8-10.8) X10*3/uL RBC 4.39 (4.20-5.50) X10*6/uL Hgb 13.6 (12.0-16.0) g/dl Hct 41.0 (37.0-47.0) % MCV 93.4 (80.0-98.0) fL MCH 31.0 (27.0-33.0) pg MCHC 33.2 (31.0-35.0) g/dl RDW 12.9 (11.0-16.0) % Plt Count 226 (160-400) X10*3/uL MPV 9.5 (9.4-12.3) fL Immature Gran % (Auto) 0.3 (0.0-0.4) % Neut % (Auto) 56.8 (45-73) % Lymph % (Auto) 33.3 (20-40) % [place] % (Auto) 6.5 (2-11) % Eos % (Auto) 2.6 (0-4) % Baso % (Auto) 0.5 (0-2) % Lymph # (Auto) 2.6 (1.2-4.9) X10*3/uL [place] # (Auto) 0.5 (0.1-1.2) X10*3/uL Eos # (Auto) 0.2 (0.0-0.4) X10*3/uL Baso # (Auto) 0.0 (0.0-0.2) X10*3/uL Abs Immat Gran (auto) 0.02 (0.00-0.03) X10*3/uL Absolute Neuts (auto) 4.4 (2.0-8.3) x10*3/uL Absolute Nucleated RBC 0.000 (0.0-0.012) X10*3/uL Nucleated RBC % (auto) 0.0 (0.0-0.2) /100WBC ESR 23 H (0-20) MM/HR Sodium 143 (135-145) mmol/L Potassium 3.8 (3.3-5.1) mmol/L Chloride 105 (96-108) mmol/L Carbon Dioxide 27 (22-29) mmol/L Anion Gap 15 (12-20) BUN 19 H (9-16) mg/dL Creatinine 0.93 (0.5-1.4) mg/dL Estim Creat Clear Calc 83.0 Estimated GFR 60 Random Glucose 98 (60-115) mg/dL Calcium 9.8 (8.4-10.2) mg/dL Magnesium 2.1 (1.6-2.6) mg/dL Total Bilirubin 0.5 (0.0-1.0) mg/dL Direct Bilirubin 0.2 (0.0-0.5) mg/dL AST 27 (5-31) U/L ALT 20 (0-31) U/L Alkaline Phosphatase 98 (39-117) U/L Troponin I High Sens < 2.7 (<3.5-17.0) ng/L C-Reactive Protein 0.82 H (< or = 0.50) mg/dL Total Protein 7.3 (6.5-8.0) g/dL Albumin 4.3 (3.5-5.0) g/dL Lipase 26 (8-78) U/L Urine Color Yellow Urine Appearance Clear Urine pH 6.0 (5.0-9.0) Ur Specific [place] 1.020 (1.005-1.025) Urine Protein Negative (Neg-Trace) mg/dL Urine Glucose (UA) Negative (Negative) mg/dL Urine Ketones Negative (Negative) mg/dL Urine Blood Negative (Negative) Urine Nitrite Negative (Negative) Ur Leukocyte Esterase Small (1+) H (Negative) Urine RBC 0-2 (0-2) /HPF Urine WBC 11-20 H (0-5) /HPF Ur Squamous Epith Cells 6-10 (0-2) /HPF Urine Bacteria None Seen (None Seen) Hyaline Casts 0-2 (0-2) /LPF Influenza Type A (PCR) NEGATIVE (Negative) Influenza Type B (PCR) NEGATIVE (Negative) RSV RNA Qual (PCR) NEGATIVE (Negative) SARS-CoV-2 RNA (RT-PCR) NEGATIVE (Negative) Independent Interpretation I performed an independent interpretation of an: EKG Interpretation: Nonischemic. Sinus rhythm. Discharge Plan Discharge Clinical Impression: Abdominal pain, Tenesmus Patient Disposition: Home, Self-Care Instructions: Acute Abdominal Pain (DC) Additional Instructions: _ DISCHARGE DIAGNOSES: Abdominal pain unclear cause HISTORY OF PRESENTATION: ?Chronic intermittent lower abdominal pain with rapid urge to move your bowels worsening today. EMERGENCY DEPARTMENT COURSE,TESTS, TREATMENTS: While in the ED today you had blood work which only showed slight elevation of nonspecific inflammatory markers. You did not have other signs on your physical examination or labs to suggest an acute surgical process however we advised getting a CT of your abdomen. A you declined this and preferred to wait for follow up with your GI or PCP. DISCHARGE MEDICATIONS: ?[We have made no changes to your regular medication regimen] FOLLOW-UP: ?Call your primary or general physician soon as possible to discuss your symptoms, your ED visit and to discuss follow up plans Call your PCP and GI for more expedited follow-up due to the worsening of your symptoms. Return at anytime to the ED INSTRUCTIONS ?& RETURN PRECAUTIONS: If any symptoms change first call your primary physician, if it is after-hours your primary doctors office should have a provider demonstrator electric gas appliances you can speak with. If the symptoms are severe or very concerning to you then call 911 or return to the ED. [07] Derrick Meza MD Emergency Physician [facility] Prescriptions: No Action furosemide 20 mg tablet 20 mg PO DAILY 90 Days Qty: 90 8RF lovastatin 20 mg tablet 20 mg PO DAILY Qty: 90 8RF omeprazole 20 mg capsule,delayed release(DR/EC) 20 mg PO DAILY Qty: 30 0RF atenolol 50 mg tablet 50 mg PO DAILY Qty: 90 3RF levothyroxine 175 mcg tablet 175 mcg PO DAILY Qty: 90 4RF dicyclomine 20 mg tablet 20 mg PO QID Qty: 30 3RF tizanidine 4 mg tablet 4 mg PO Q8H PRN (Reason: muscle spasticity) Qty: 60 3RF dicyclomine 20 mg tablet 20 mg PO QID Qty: 30 3RF Interventions: ED Discharge Assessment Last Done: 09/01/24 17:41 Discharge Date/Time: 09/01/24 17:41 Print Language: Portuguese
[2024-09-01 13:33] VITALS: BP 137/59; PULSE 68; RESP 18; TEMP 36.6; O2SAT 97; BMI 41.4
--- NOTE | 2024-09-01 13:35 | ECG_ITS ---
Test Reason : ABDOMINAL PAIN Blood Pressure : / mmHG Vent. Rate : 063 BPM Atrial Rate : 063 BPM P-R Int : 162 ms QRS Dur : 120 ms QT Int : 396 ms P-R-T Axes : 031 -47 006 degrees QTc Int : 405 ms Normal sinus rhythm Left anterior fascicular block Minimal voltage criteria for LVH, may be normal variant ( Mickey product ) Abnormal ECG When compared with ECG of 04-JAN-2022 15:05, No significant changes seen Referred By: Yamini Guzman Electronically Signed By:PASHA MELO
[2024-09-01 13:55] LABS: MANUAL DIFF FLAG NO
[2024-09-01 13:58] LABS: Appearance Urine Clear; Color Urine Yellow; Glucose Urine UA Negative (Negative); Leukocyte Esterase Urine Small (1+) (Negative); Nitrite Urine Negative (Negative); UMIC TRIGGER UACC YES; Urine Blood Negative (Negative); Urine Ketones Negative (Negative); Urine Protein Negative (Neg-Trace)
[2024-09-01 14:01] LABS: Bacteria Urine None Seen (None Seen); Hyaline Casts Urine 0-2 /LPF (0-2); RBC Urine 0-2 /HPF (0-2); UACC Culture Trigger YES
[2024-09-01 14:02] LABS: Basophils Percent Auto 0.5 % (0-2); Eosinophils Absolute Auto 0.2 X10*3/uL (0.0-0.4); Eosinophils Percent Auto 2.6 % (0-4); Hemoglobin 13.6 g/dl (12.0-16.0); Imm Gran Abs Auto 0.02 X10*3/uL (0.00-0.03); Imm Gran Pct Auto 0.3 % (0.0-0.4); Lymphocytes Absolute Auto 2.6 X10*3/uL (1.2-4.9); Lymphocytes Percent Auto 33.3 % (20-40); Mean Corpuscular HGB Conc 33.2 g/dl (31.0-35.0); Mean Corpuscular Volume 93.4 fL (80.0-98.0); Mean Platelet Volume 9.5 fL (9.4-12.3); Monocytes Absolute Auto 0.5 X10*3/uL (0.1-1.2); Monocytes Percent Auto 6.5 % (2-11); Neutrophils Absolute Auto 4.4 x10*3/uL (2.0-8.3); Neutrophils Percent Auto 56.8 % (45-73); Platelet Count 226 X10*3/uL (160-400); Red Blood Count 4.39 X10*6/uL (4.20-5.50); Red Cell Distribution Width 12.9 % (11.0-16.0); White Blood Count 7.7 X10*3/uL (4.8-10.8)
[2024-09-01 14:19] LABS: Alanine Aminotransferase 20 U/L (0-31); Albumin Level 4.3 g/dL (3.5-5.0); Alkaline Phosphatase 98 U/L (39-117); Anion Gap 15 (12-20); Aspartate Amino Transferase 27 U/L (5-31); Bilirubin Direct 0.2 mg/dL (0.0-0.5); Bilirubin Total 0.5 mg/dL (0.0-1.0); Blood Urea Nitrogen 19 mg/dL (9-16); C Reactive Protein 0.82 mg/dL (< or = 0.50); Calcium 9.8 mg/dL (8.4-10.2); Carbon Dioxide 27 mmol/L (22-29); Chloride 105 mmol/L (96-108); Estimated Glomerular Filt Rate 60; Glucose Random 98 mg/dL (60-115); Lipase 26 U/L (8-78); Magnesium 2.1 mg/dL (1.6-2.6); Potassium 3.8 mmol/L (3.3-5.1); Sodium 143 mmol/L (135-145); Total Protein 7.3 g/dL (6.5-8.0)
[2024-09-01 14:32] LABS: Troponin-I High Sensitivity < 2.7 ng/L (<3.5-17.0)
[2024-09-01 14:41] LABS: Erythrocyte Sedimentation Rate 23 MM/HR (0-20)
[2024-09-01 14:44] LABS: Influenza A PCR NEGATIVE (Negative); Influenza B PCR NEGATIVE (Negative); Resp Syncy Virus RNA Qual PCR NEGATIVE (Negative); SARS COV2 PCR INHOUSE NEGATIVE (Negative)
[2024-09-01 17:41] VITALS: BP 137/59; PULSE 68; RESP 18; TEMP 36.6; O2SAT 97
== END 2024-09-01 17:41 | disposition home or self-care (01) ==
PROVIDERS: Physician Assistant Medical; Emergency Provider Emergency Medicine; PCP Internal Medicine
DX: R10.2 Pelvic and perineal pain (principal); R35.0 Frequency of micturition; R19.8 Other specified symptoms and signs involving the digestive system and abdomen; R94.31 Abnormal electrocardiogram [ECG] [EKG]; Z03.818 Encounter for observation for suspected exposure to other biological agents ruled out; Z79.899 Other long term (current) drug therapy
CPT/HCPCS: 0241U; 36415; 80048; 80076; 81001; 83690; 83735; 84484; 85025; 85652; 86140; 87086; 87088; 87186; 93005; 99284

== ENCOUNTER → 2024-09-01 13:35 | Outpatient (BNV) | payer MEDICARE, SELFPAY | PROVIDERS: PCP Internal Medicine; Visit Provider Internal Medicine | DX: R94.31 Abnormal electrocardiogram [ECG] [EKG] (principal) | CPT/HCPCS: 93010 ==

== ENCOUNTER 2024-09-24 11:51 | Emergency (ER) | payer MEDICARE, SELFPAY ==
[2024-09-24] VITALS (7 sets, daily range): BP systolic 90–127; BP diastolic 43–61; PULSE 88–108; RESP 16–18; TEMP 36.7–36.8; O2SAT 92–99; BMI 42.4
--- NOTE | ~2024-09-24 | XR_ITS ---
EXAMINATION: XR CHEST CLINICAL INFORMATION: chest pain COMPARISON: January 04, 2022 TECHNIQUE: 2 views of the chest were obtained. FINDINGS: There is no gross pneumothorax. The heart size is normal. There is no gross pneumothorax. Bibasilar opacities. Low lung volumes. Possible trace bilateral pleural effusions. XR/XR chest 2V IMPRESSION: Bibasilar opacities. Possible trace bilateral pleural effusions. This study was presented today September 24, 2024 for interpretation. Stat results provided at this time as requested by referring provider. Electronically signed by: Rosemary Thomas MD 09/24/2024 01:30 PM SCOTT
--- NOTE | ~2024-09-24 | CT_ITS ---
EXAMINATION: CT ABDOMEN AND PELVIS WITH CONTRAST CLINICAL INFORMATION: Diarrhea, abdominal pain, vomiting COMPARISON: CT abdomen and pelvis 12/07/2023. TECHNIQUE: Multidetector volumetric images were obtained from the superior aspect of the liver through the pubic symphysis following administration 85 mL of Omnipaque 350 intravenous contrast. Sagittal and coronal reformatted images were obtained on the technologist's workstation. Oral contrast: No This CT examination was performed using dose optimization techniques as appropriate, variously including the following: *Automated exposure control *Adjustment of mA and/or kV according to patient size (this includes techniques or standardized protocols for targeted exams where dose is matched to indication/reason for exam; i.e. extremities or head) *Use of iterative reconstruction technique DLP: 1153 mGy-cm FINDINGS: LUNG BASES: No pleural effusions. LIVER, GALLBLADDER, AND BILIARY TREE: Liver is mildly enlarged measuring 18.5 cm in the craniocaudal dimension. There is diffuse decrease in liver attenuation which can be seen with hepatic steatosis. No focal hepatic lesion. The gallbladder is distended without evidence of radiopaque stones, wall thickening or pericholecystic inflammatory changes. No intra or extrahepatic biliary ductal dilation. PANCREAS: Unremarkable. SPLEEN: Unremarkable. ADRENAL GLANDS: Unremarkable. KIDNEYS AND URETERS: The kidneys are normal in size, shape, and attenuation. No hydronephrosis, hydroureter, or calculi seen. No perinephric stranding. BLADDER: Unremarkable. GASTROINTESTINAL TRACT: Stomach and small bowel are nondilated. There is mild fluid-filled distention of the colonic loops . Descending and sigmoid colonic diverticulosis without CT evidence of acute diverticulitis. The appendix is unremarkable. ABDOMINAL WALL: Small fat-containing umbilical hernia. LYMPH NODES: No abdominopelvic lymphadenopathy. VASCULAR: The abdominal aorta is normal in caliber with scattered aortoiliac atherosclerosis. PELVIC VISCERA: Uterus is anteverted and appears normal in size. No adnexal mass lesions. OSSEOUS STRUCTURES: Degenerative changes of the visualized spine. Severe facet arthropathy at L5-S1. No acute or suspicious osseous abnormality. CT/CT abdomen pelvis w IV con IMPRESSION: Colonic diverticulosis without CT evidence of acute diverticulitis. Mild fluid-filled distention of the colon which may be secondary to diarrheal disease. Mild hepatomegaly and hepatic steatosis. Electronically signed by: Steven Uribe MD 09/24/2024 07:15 PM EST RP
--- NOTE | 2024-09-24 11:54 | ECG_ITS ---
Test Reason : CHEST PAIN Blood Pressure : / mmHG Vent. Rate : 096 BPM Atrial Rate : 096 BPM P-R Int : 156 ms QRS Dur : 106 ms QT Int : 354 ms P-R-T Axes : 031 -58 044 degrees QTc Int : 447 ms Normal sinus rhythm Low voltage QRS Left anterior fascicular block Possible Lateral infarct , age undetermined Abnormal ECG When compared with ECG of 01-SEP-2024 13:33, Vent. rate has increased BY 33 BPM Borderline criteria for Lateral infarct are now Present Nonspecific T wave abnormality now evident in Lateral leads Referred By: Jennifer Alvarenga Electronically Signed By:PASHA MELO
--- NOTE | 2024-09-24 12:07 | ED_ITS ---
HPI - General Adult General Chief complaint: Chest Pain Stated complaint: Chest pain, diarrhea Time Seen by Provider: 09/24/24 15:36 Source: patient Mode of arrival: ambulatory Limitations: no limitations History of Present Illness ED Provider: Mabel Perdomo NP HPI narrative: Patient is a 68-year-old female who presents to the emergency department for evaluation of diarrhea. She is currently residing in a elderly housing setting. She states that there have been individuals ill with respiratory infections. She states that she awoke at 03:00 this morning with diffuse abdominal cramping. She had a couple episodes of soft stool followed by approximately 15 episodes of liquid stool. She states that she vomited once earlier today and it was phlegm . She however denies having any recent URI symptoms cough, congestion, rhinorrhea, sore throat, fevers or chills. She endorsed having chest pain about 1 hour prior to arrival to the emergency department when asked to localize the she points directly to her epigastrium. She endorsed feeling slightly short of breath and dizzy after having several bouts of diarrhea. This caused her to feel unsteady but has been able to ambulate. she does report that she has been experiencing chronic intermittent lower abdominal discomfort and tenesmus this has been since her transvaginal uterine polyp removal, and subsequently has had chronic abdominal pain since January this year. She is awaiting an outpatient appointment gastroenterology for a colonoscopy. At times she does have bouts of soft stools but has never occurred as severe as today. Related Data Previous Rx's ?Medication ?Instructions ?Recorded furosemide 20 mg tablet 20 mg PO DAILY 90 days #90 tabs 02/01/24 lovastatin 20 mg tablet 20 mg PO DAILY #90 tabs 02/01/24 omeprazole 20 mg capsule,delayed 20 mg PO DAILY #30 caps 02/02/24 release atenolol 50 mg tablet 50 mg PO DAILY #90 tabs 03/15/24 levothyroxine 175 mcg tablet 175 mcg PO DAILY #90 tabs 04/09/24 tizanidine 4 mg tablet 4 mg PO Q8H PRN muscle spasticity 05/01/24 #60 tabs dicyclomine 20 mg tablet 20 mg PO QID #30 tabs 06/20/24 dicyclomine 20 mg tablet 20 mg PO QID #30 tabs 07/25/24 cefuroxime axetil 250 mg tablet 250 mg PO BID 7 days #14 tabs 09/05/24 Allergies Allergy/AdvReac Type Severity Reaction Status Date / Time bee pollen Allergy Severe Swelling Verified 09/24/24 12:10 ciprofloxacin [From Cipro] Allergy Severe RASH-ITCHIN Verified 09/24/24 12:10 G Penicillins Allergy Intermediate Rash Verified 09/24/24 12:10 Sulfa (Sulfonamide Allergy Intermediate HIVES Verified 09/24/24 12:10 Antibiotics) [SULFA (SULFONAMIDE ANTIBIOTICS)] Review of Systems 2 Review of Systems: Yes all other systems are reviewed and are negative [facility] Past Medical History Attestation statement: The following information was validated with the patient. Source: old records reviewed Medical History Hiatal hernia Peptic ulcer Hx of simple renal cyst History of fatty infiltration of liver Elevated cholesterol Thyroid disease HTN (hypertension) Surgical History History of endoscopy History of colonoscopy History of tonsillectomy and adenoidectomy History of bilateral cataract extraction Family History Family History Father CVD (cardiovascular disease) Past heart attack Mother Breast cancer Bone metastases Brother Past heart attack Social History Social History Household Members: None Housing: Apartment Are you a primary caregiver services home to a significant other at home: No Do you presently have visiting nurse or other home services: No Alcohol intake: never Patient Tobacco Use Status: Never used Tobacco Tobacco use type: Cigarette Smoked in Last 30 Days: Yes e-Cigarette/Vaping Use: Never Used Second Hand Smoke Exposure: No Use of substances other than those prescribed or required for medical reasons: No Advance Directives: No Advance Directives Information Provided: No service: No Current occupational status: retired Cognitive needs: No Hearing needs: No Vision needs: No Physical Exam ED Vital Signs: Vital Signs - 24 hr 09/24/24 12:08 09/24/24 15:39 09/24/24 18:04 Temperature 98.3 F 98.2 F 98.2 F Pulse Rate 94 103 H 91 Respiratory Rate 18 16 16 Blood Pressure 103/51 L 120/59 L 90/44 L Pulse Oximetry 95 96 99 Oxygen Delivery Method Room Air Room Air Room Air 09/24/24 19:56 09/24/24 21:19 09/24/24 21:19 Temperature 98.1 F Pulse Rate 92 88 96 Respiratory Rate 16 Blood Pressure 103/57 L 119/45 L 127/61 Pulse Oximetry 96 Oxygen Delivery Method Room Air 09/24/24 21:20 09/24/24 22:17 09/25/24 01:06 Temperature 98.3 F 98 F Pulse Rate 108 H 90 85 Respiratory Rate 16 16 Blood Pressure 121/59 L 100/43 L 121/55 L Pulse Oximetry 92 94 Oxygen Delivery Method Room Air Room Air 09/25/24 04:15 Temperature Pulse Rate 75 Respiratory Rate 16 Blood Pressure 121/57 L Pulse Oximetry 95 Oxygen Delivery Method Room Air BMI result Body Mass Index 42.4 Appearance: Alert.?Oriented to person, place and time. No acute distress.?Normal affect.?? Neck: Normal inspection.? Neck supple.?? CVS: Heart sounds normal. Normal heart rate and rhythm.? Pulses normal.?? Respiratory: No respiratory distress.? Lung sounds clear to auscultation bilaterally?? Abdomen: Soft with right upper quadrant and epigastric tenderness. Negative Laboy sign.. No rebound tenderness at McBurney's point. Negative psoas sign. Negative Rovsing sign. No CVAT. Normoactive bowel sounds. No pulsatile mass.?? Skin: Skin warm and dry.? Normal skin color.? Extremities: No lower extremity edema.? Neuro: Moves all extremities spontaneously. Sensation intact bilaterally. Ambulates with normal steady gait. Course Course Course Narrative: This is a rapid medical exam performed by Karley Alvarenga NP: Additional HPI, ROS, PE not included below will be deferred to primary provider. Patient is a 68-year-old female presenting with complaint of diarrhea, nausea, vomiting since 3:30 am, then shortly before arrival developed chest pain. States she is vomiting sputum. Feels very lightheaded. Unsure of sick contacts, but lives in elderly housing. Plan: EKG, labs, viral serology Reevaluation(s) Reevaluation #1: Urinalysis is without evidence of infection, her urinalysis however is concentrated concerning for dehydration. Stool studies GI panel are pending and c.diff is negative. CT AP revealing diverticulosis without evidence of diverticulitis, fluid filled distention of the colon working in the setting of a gastroenteritis. she has continued to have episodes of watery stools while in the emergency department. She was offered Imodium, she states that she has Imodium at home she would prefer to return back home and take this there. We discussed possibility for observation/hospital admission given her multiple bouts of watery stools and concern for dehydration. She expresses concern about the potential bill that she would receive for an inpatient stay, and would like to be discharged at this time. She is tolerating oral intake without nausea / vomiting. We discussed strict return precautions. All questions were answered. Reevaluation #2: Patient placed in physician observation at this time, she spoke with her niece who expresses concerns about her safety as she has been feeling a bit unsteady with walking and she resides alone. I spoke with nursing staff, I have placed a p.r.n. order for Imodium, she will be in observation overnight in the emergency department, If her diarrhea improves and she is feeling or steady on her feet and well enough to return back to her home in the morning she may do so. She is tolerating oral intake without vomiting. I do not think that she warrants inpatient admission at this time she is not orthostatic, no left went or JOHANA and tolerating oral intake. She is ambulatory with a steady gait. Time: 21:35 Reevaluation #3: Physician observation ended at 545am No BM for 6+ hours tolerating PO feels much better, no resp symptoms aware of CXR but no cough or fevers. NAD, lungs clear, CV RRR, Abd nontender, Neuro intact. Disposition is for home. up and walking steady gait Medications Administered Discontinued Medications Generic Name Dose Route Start Last Admin Trade Name Freq PRN Reason Stop Dose Admin Sodium Chloride 1,000 mls @ 999 mls/hr 09/24/24 16:15 09/24/24 21:48 Ns IV 09/24/24 17:15 Infused .Q1H1M KIM Infusion Iohexol 85 ml 09/24/24 16:51 09/24/24 16:51 Iohexol 350 Mg/Ml 100 Ml Infus..Btl IV 09/24/24 16:52 85 ml ONCE ONE Administration Loperamide HCl 2 mg 09/24/24 20:14 09/24/24 21:14 Loperamide Hcl 2 Mg Capsule PO 09/24/24 20:15 2 mg ONCE ONE Administration Ondansetron HCl 4 mg 09/24/24 16:12 09/24/24 17:32 Ondansetron Hcl 4 Mg/2 Ml Vial IVPUSH 09/24/24 16:13 4 mg ONCE ONE Administration Medical Decision Making Medical Decision Making [facility] Narrative: Patient is a 68-year-old female with history of hiatal hernia, peptic ulcer, hepatic steatosis, hypercholesterolemia, hypothyroidism, hypertension presenting to emergency department for evaluation of multiple bouts of diarrhea with onset earlier today as per HPI. Will obtain CBC to evaluate for leukocytosis/ anemia, CMP and lipase to evaluate for abnormal electrolytes /abnormal renal function/ abnormal hepatic/biliary function, EKG and troponin to evaluate for ischemia/ACS. Chest x-ray to evaluate for consolidation/ infiltrate/ mass/ pulmonary congestion, and Stool studies and Urinalysis. Abdominal examination Reveals mild diffuse tenderness but notable tenderness to the right upper quadrant epigastric region, overall without signs of systemic toxicity found to be afebrile without Significant tachycardia, no hypotension. Examination not consistent with rebound tenderness, no guarding, no percussive tenderness. No associated chest pain shortness of breath or URI symptoms to suggest pneumonia, no clinical evidence of DVT or personal history of VTE/malignancy to suggest pulmonary embolism. she does endorse having associated chest pain though she has pointing to her epigastrium, no substernal pain no right or left-sided chest pain localized, she does have risk factors for ACS. lower suspicion for choledocholithiasis, no fever or jaundice to suggest acute cholangitis, may possibly be biliary colic secondary to cholelithiasis. Denies associated acid reflux, no recent hematemesis history less likely to suggest PUD. Denies excessive alcohol consumption, history of diabetes, lower suspicion acute pancreatitis. No rebound tenderness at McBurney's point, rigidity, guarding to suggest acute appendicitis. No tenderness of the left lower quadrant however she is experiencing multiple episodes of watery diarrhea, without hematochezia or melena may suggest diverticulitis less likely GI bleed. No distention or rigidity to suggest GI perforation. No associated genitourinary symptoms to suggest UTI/pyelonephritis, renal colic, hydronephrosis, however she was treated earlier this month for Klebsiella UTI with a course of Ceftin Differential Diagnosis Differential Diagnoses: The differential diagnosis associated with the presentation includes (See narrative above) Admission/Observation Consideration of admission/observation: Escalation of care including admission/observation considered (See narrative above ) Lab Data MDM Lab Attestation statement: I reviewed the patient's lab results. CBC is without leukocytosis anemia or thrombocytopenia. No electrolyte derangement. No JOHANA. LFTs and lipase are within normal range. High sensitive troponin is below detectable limits. Viral serologies are negative. 09/24/24 12:55 09/24/24 12:55 Labs: Lab Results 09/24/24 09/24/24 09/24/24 Range/Units 12:55 18:45 19:49 WBC 9.6 (4.8-10.8) X10*3/uL RBC 4.72 (4.20-5.50) X10*6/uL Hgb 14.6 (12.0-16.0) g/dl Hct 43.0 (37.0-47.0) % MCV 91.1 (80.0-98.0) fL MCH 30.9 (27.0-33.0) pg MCHC 34.0 (31.0-35.0) g/dl RDW 13.2 (11.0-16.0) % Plt Count 215 (160-400) X10*3/uL MPV 9.4 (9.4-12.3) fL Immature Gran % (Auto) 0.4 (0.0-0.4) % Neut % (Auto) 91.6 H (45-73) % Lymph % (Auto) 4.3 L (20-40) % [place] % (Auto) 3.3 (2-11) % Eos % (Auto) 0.3 (0-4) % Baso % (Auto) 0.1 (0-2) % Lymph # (Auto) 0.4 L (1.2-4.9) X10*3/uL [place] # (Auto) 0.3 (0.1-1.2) X10*3/uL Eos # (Auto) 0.0 (0.0-0.4) X10*3/uL Baso # (Auto) 0.0 (0.0-0.2) X10*3/uL Abs Immat Gran (auto) 0.04 H (0.00-0.03) X10*3/uL Absolute Neuts (auto) 8.8 H (2.0-8.3) x10*3/uL Absolute Nucleated RBC 0.000 (0.0-0.012) X10*3/uL Nucleated RBC % (auto) 0.0 (0.0-0.2) /100WBC Smear Tech's Comments VERIFIED PT 11.1 (10.9-12.4) SEC INR 1.0 (0.9-1.1) Sodium 138 (135-145) mmol/L Potassium 3.8 (3.3-5.1) mmol/L Chloride 106 (96-108) mmol/L Carbon Dioxide 20 L (22-29) mmol/L Anion Gap 16 (12-20) BUN 13 (9-16) mg/dL Creatinine 0.85 (0.5-1.4) mg/dL Estim Creat Clear Calc 89.2 Estimated GFR > 60 Random Glucose 122 H (60-115) mg/dL Calcium 9.3 (8.4-10.2) mg/dL Magnesium 2.0 (1.6-2.6) mg/dL Total Bilirubin 0.8 (0.0-1.0) mg/dL AST 26 (5-31) U/L ALT 20 (0-31) U/L Alkaline Phosphatase 91 (39-117) U/L Troponin I High Sens < 2.7 (<3.5-17.0) ng/L Total Protein 7.1 (6.5-8.0) g/dL Albumin 4.2 (3.5-5.0) g/dL Lipase 20 (8-78) U/L Urine Color Yellow Urine Appearance Clear Urine pH 5.5 (5.0-9.0) Ur Specific [place] >= 1.030 H (1.005-1.025) Urine Protein Trace (Neg-Trace) mg/dL Urine Glucose (UA) Negative (Negative) mg/dL Urine Ketones Negative (Negative) mg/dL Urine Blood Negative (Negative) Urine Nitrite Negative (Negative) Ur Leukocyte Esterase Negative (Negative) C. difficile Tox B Gene NEGATIVE (Negative) Influenza Type A (PCR) NEGATIVE (Negative) Influenza Type B (PCR) NEGATIVE (Negative) RSV RNA Qual (PCR) NEGATIVE (Negative) SARS-CoV-2 RNA (RT-PCR) NEGATIVE (Negative) Independent Interpretation I performed an independent interpretation of an: EKG and Plain X-Ray Interpretation: Rate: 96 Rhythm:? a sinus rhythm Normal P waves.? Normal PAOLA.?? Normal QRS complex.?? ST T wave :?? no ST elevation, no ST depression, qTC: 447 prior studies:? 08/2024 The study has been interpreted contemporaneously by me. Radiology Impression Discussion of test interpretation with radiology: I have reviewed the radiologist's reading. Radiologist Impression: XR/XR chest 2V IMPRESSION: Bibasilar opacities. Possible trace bilateral pleural effusions. External Record Review External record reviewed: Outpatient record Discharge Plan Discharge Clinical Impression: Gastroenteritis Patient Disposition: Home, Self-Care Instructions: Gastroenteritis (ED) Additional Instructions: you have Imodium at home, you may take this as per the package instructions. patient that you are staying well hydrated. consume small frequent solids following a bland diet over the next few days. Introduce a bland diet including crackers, bananas, rice, soup, toast, and boiled vegetables. This may progress to plain baked or boiled chicken or turkey. Avoid dairy products or foods high in fat or grease. Return with any new or worsening symptoms or concerns. Follow-up with your primary care doctor. Additionally follow-up with Gastroenterology so that you may have your outpatient colonoscopy as scheduled. Prescriptions: No Action furosemide 20 mg tablet 20 mg PO DAILY 90 Days Qty: 90 8RF lovastatin 20 mg tablet 20 mg PO DAILY Qty: 90 8RF omeprazole 20 mg capsule,delayed release(DR/EC) 20 mg PO DAILY Qty: 30 0RF atenolol 50 mg tablet 50 mg PO DAILY Qty: 90 3RF levothyroxine 175 mcg tablet 175 mcg PO DAILY Qty: 90 4RF cefuroxime axetil 250 mg tablet 250 mg PO BID 7 Days Qty: 14 0RF dicyclomine 20 mg tablet 20 mg PO QID Qty: 30 3RF tizanidine 4 mg tablet 4 mg PO Q8H PRN (Reason: muscle spasticity) Qty: 60 3RF dicyclomine 20 mg tablet 20 mg PO QID Qty: 30 3RF Referrals: Ilia Stanton MD [Primary Care Provider] - Print Language: Indonesian
[2024-09-24 13:01] LABS: Basophils Percent Auto 0.1 % (0-2); Eosinophils Percent Auto 0.3 % (0-4); Hemoglobin 14.6 g/dl (12.0-16.0); Imm Gran Abs Auto 0.04 X10*3/uL (0.00-0.03); Imm Gran Pct Auto 0.4 % (0.0-0.4); Lymphocytes Absolute Auto 0.4 X10*3/uL (1.2-4.9); Lymphocytes Percent Auto 4.3 % (20-40); MANUAL DIFF FLAG SCAN; Mean Corpuscular Hemoglobin 30.9 pg (27.0-33.0); Mean Corpuscular Volume 91.1 fL (80.0-98.0); Mean Platelet Volume 9.4 fL (9.4-12.3); Monocytes Absolute Auto 0.3 X10*3/uL (0.1-1.2); Monocytes Percent Auto 3.3 % (2-11); Neutrophils Absolute Auto 8.8 x10*3/uL (2.0-8.3); Neutrophils Percent Auto 91.6 % (45-73); Platelet Count 215 X10*3/uL (160-400); Red Blood Count 4.72 X10*6/uL (4.20-5.50); Red Cell Distribution Width 13.2 % (11.0-16.0); SCAN SMEAR FLAG 1; White Blood Count 9.6 X10*3/uL (4.8-10.8)
[2024-09-24 13:06] LABS: Prothrombin Time 11.1 SEC (10.9-12.4)
[2024-09-24 13:18] LABS: Alanine Aminotransferase 20 U/L (0-31); Albumin Level 4.2 g/dL (3.5-5.0); Alkaline Phosphatase 91 U/L (39-117); Anion Gap 16 (12-20); Aspartate Amino Transferase 26 U/L (5-31); Bilirubin Total 0.8 mg/dL (0.0-1.0); Blood Urea Nitrogen 13 mg/dL (9-16); Calcium 9.3 mg/dL (8.4-10.2); Carbon Dioxide 20 mmol/L (22-29); Chloride 106 mmol/L (96-108); Creatinine Clr Calc Pharmacy 89.2; Estimated Glomerular Filt Rate > 60; Glucose Random 122 mg/dL (60-115); Potassium 3.8 mmol/L (3.3-5.1); Sodium 138 mmol/L (135-145); Total Protein 7.1 g/dL (6.5-8.0)
[2024-09-24 13:23] LABS: SLIDE REVIEW VERIFIED
[2024-09-24 13:29] LABS: Troponin-I High Sensitivity < 2.7 ng/L (<3.5-17.0)
[2024-09-24 13:40] LABS: Influenza A PCR NEGATIVE (Negative); Influenza B PCR NEGATIVE (Negative); Resp Syncy Virus RNA Qual PCR NEGATIVE (Negative); SARS COV2 PCR INHOUSE NEGATIVE (Negative)
[2024-09-24 16:26] LABS: Lipase 20 U/L (8-78)
[2024-09-24] MEDS: iohexoL 350 MG/ML 100 ML INFUS..BTL 85 ML IV (16:51)
[2024-09-24] MEDS: ondansetron HCL 4 MG/2 ML VIAL IVPUSH (17:32)
[2024-09-24] MEDS: 0.9 % Sodium Chloride 1,000 ML 999 ML IV (17:32)
[2024-09-24 20:01] LABS: CDiff Gene PCR NEGATIVE (Negative)
[2024-09-24 20:23] LABS: Appearance Urine Clear; Color Urine Yellow; Glucose Urine UA Negative (Negative); Leukocyte Esterase Urine Negative (Negative); Nitrite Urine Negative (Negative); PH 5.5 (5.0-9.0); Specific Gravity - Urine >= 1.030 (1.005-1.025); Urine Blood Negative (Negative); Urine Ketones Negative (Negative); Urine Protein Trace mg/dL (Neg-Trace)
[2024-09-24] MEDS: Loperamide HCl 2 MG CAPSULE PO (21:14)
--- NOTE | 2024-09-25 00:21 | PC.NURSE ---
pt oob with a steady gait, pt reports having diarrhea
[2024-09-25 01:06] VITALS: BP 121/55; PULSE 85; RESP 16; TEMP 36.6; O2SAT 94
[2024-09-25 04:15] VITALS: BP 121/57; PULSE 75; RESP 16; O2SAT 95
--- NOTE | 2024-09-25 04:17 | PC.NURSE ---
Pt sleeping, no sign of distress.
[2024-09-25 06:35] VITALS: BP 121/57; PULSE 75; RESP 16; TEMP 36.6; O2SAT 95
[2024-09-25 11:45] LABS: Adenovirus F 40/41 Not Detected (Not Detect.); Astrovirus Not Detected (Not Detect.); Campylobacter Not Detected (Not Detect.); Cryptosporidium Not Detected (Not Detect.); Cyclospora cayetanensis Not Detected (Not Detect.); E. coli EAEC Not Detected (Not Detect.); E. coli EPEC Not Detected (Not Detect.); E. coli ETEC Not Detected (Not Detect.); E. coli STEC Not Detected (Not Detect.); Entamoeba histolytica Not Detected (Not Detect.); Giardia lamblia Not Detected (Not Detect.); Plesiomonas shigelloides Not Detected (Not Detect.); Rotavirus A Not Detected (Not Detect.); Salmonella Not Detected (Not Detect.); Sapovirus Not Detected (Not Detect.); Shigella sp./EIEC Not Detected (Not Detect.); Vibrio Not Detected (Not Detect.); Vibrio Cholerae Not Detected (Not Detect.); Yersinia enterocolitica Not Detected (Not Detect.)
[2024-09-27 15:33] LABS: Norovirus Stool PCR DETECTED
== END 2024-09-25 06:38 | disposition home or self-care (01) ==
PROVIDERS: Nurse Practitioner Family; Registered Nurse Emergency; Emergency Provider Emergency Medicine; PCP Internal Medicine
DX: K52.9 Noninfective gastroenteritis and colitis, unspecified (principal); R07.89 Other chest pain; R06.02 Shortness of breath; D84.9 Immunodeficiency, unspecified; R10.2 Pelvic and perineal pain; Z03.818 Encounter for observation for suspected exposure to other biological agents ruled out; Z79.899 Other long term (current) drug therapy
CPT/HCPCS: 0241U; 71046; 74177; 80053; 81003; 83690; 83735; 84484; 85025; 85610; 87493; 87507; 93005; 96361; 96374; 99285; J2405; Q9967

== ENCOUNTER → 2024-09-24 11:54 | Outpatient (BNV) | payer MEDICARE, SELFPAY | PROVIDERS: Emergency Provider Emergency Medicine; PCP Internal Medicine; Visit Provider Internal Medicine | DX: R94.31 Abnormal electrocardiogram [ECG] [EKG] (principal) | CPT/HCPCS: 93010 ==

== ENCOUNTER 2024-10-01 13:33 | Outpatient (AMB) | payer MEDICARE, SELFPAY ==
--- NOTE | 2024-10-01 13:34 | MHC.PC.OV ---
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: No Accompanied by: Self / Same As Patient Allergies bee pollen Allergy (Severe, Verified 10/01/24 13:35) Swelling ciprofloxacin [From Cipro] Allergy (Severe, Verified 10/01/24 13:35) RASH-ITCHING Penicillins Allergy (Intermediate, Verified 10/01/24 13:35) Rash Sulfa (Sulfonamide Antibiotics) [SULFA (SULFONAMIDE ANTIBIOTICS)] Allergy (Intermediate, Verified 10/01/24 13:35) HIVES Medication List - Last Reconciled 10/02/24 by Ilia Stanton MD atenolol 50 mg PO DAILY cefuroxime axetil 250 mg PO BID 7 days dicyclomine 20 mg PO QID dicyclomine 20 mg PO QID furosemide 20 mg PO DAILY 90 days levothyroxine 175 mcg PO DAILY lovastatin 20 mg PO DAILY omeprazole 20 mg PO DAILY tizanidine 4 mg PO Q8H PRN Tobacco use date assessed: 10/01/24 Fall risk assessment: No Falls in past year Last assessed Fall Risk: 10/01/24 Dental Screening Dental Screen Date: 10/01/24 Did you have a dental visit in the last 12 months?: Yes Did you have a dental problem in the last 6 months where you did not have access to dental care?: No Was dental information given to patient?: Patient has dentist H[place] [facility] [place] Chest pain, diarrhea HPI Details admitted with viral gastroenteritis; recovering; agrred to have colonoscpy done which was recommended in the hospital [facility] Medical History Hiatal hernia Peptic ulcer Hx of simple renal cyst History of fatty infiltration of liver Elevated cholesterol Thyroid disease HTN (hypertension) Surgical History History of endoscopy History of colonoscopy History of tonsillectomy and adenoidectomy History of bilateral cataract extraction Family History Father CVD (cardiovascular disease) Past heart attack Mother Breast cancer Bone metastases Brother Past heart attack Social History Household Members: None Housing: Apartment Are you a primary family day care provider to a significant other at home: No Do you presently have visiting nurse or other home services: No Alcohol intake: never Patient Tobacco Use Status: Never used Tobacco Tobacco use type: Cigarette e-Cigarette/Vaping Use: Never Used Second Hand Smoke Exposure: No service: No Current occupational status: retired Cognitive needs: No Hearing needs: No Vision needs: No Questionnaire PHQ-9 Over the last 2 weeks, how often have you been bothered by any of the following problems? 1. Little interest or pleasure in doing things: not at all 2. Feeling down, depressed, or hopeless: not at all 3. Trouble falling or staying asleep, or sleeping too much: not at all 4. Feeling tired or having little energy: not at all 5. Poor appetite or overeating: not at all 6. Feeling bad about yourself - or that you are a failure or have let yourself or your family down: not at all 7. Trouble concentrating on things, such as reading the newspaper or watching television: not at all 8. Moving or speaking so slowly that other people could have noticed. Or the opposite - being so fidgety or restless that you have been moving around a lot more than usual: not at all 9. Thoughts that you would be better off or of hurting yourself in some way: not at all Total score: 0 Depression Screening Interpretation: Positive Depression Screening Done: Yes Source: Developed by Drs. Nura Ash, Shelly Dickey, Berto Schmitt and colleagues, with an educational jermaine from [employer]. Thrive Questionnaire Date Thrive assessed: 10/01/24 I am a: Patient What is your living situation today?: I have a steady place to live Within the past 12 months, did the food you bought not last and you didn't have the money to get more?: Never true Within the past 12 months, did you worry whether your food would run out before you got money to buy more?: Never true Do you have trouble paying for medicines?: No Do you have trouble getting transportation to medical appointments?: No Do you have trouble paying your heating and electricity bill?: No Do you have trouble taking care of your child, family member or friend?: No Do you have trouble with day-to-day activities such as bathing, preparing meals, shopping, managing finances, etc.?: No Are you currently unemployed and looking for a job?: Yes Are you interested in more education?: No Please select the resources that you would like help with: None Currently or been in a relationship where the following occur: No concerns reported THRIVE Score: 0 AUDIT C Alcohol Use Questionnaire (AUDIT-C) 1. How often do you have a drink containing alcohol?: Never Total Score: 0 Score Reviewed/Action Taken: Yes SWOMYA-7 AMB Questionnaire SOWMYA-7 Date SOWMYA - 7 assessed: 10/01/24 Feeling nervous, anxious, or on edge: 0 = Not at all Not being able to stop or control worryin = Not at all Worrying too much about different things: 0 = Not at all Trouble relaxin = Not at all Being so restless that it is hard to sit still: 0 = Not at all Becoming easily annoyed or irritable: 0 = Not at all Feeling afraid as if something awful might happen: 0 = Not at all Total SOWMYA-7 score (0-4 normal; 5-9 mild; 10-14 moderate; 15-21 severe): 0 Source: Developed by Drs. Nura Ash, Shelly Dickey, Berto Schmitt and colleagues, with an educational jermaine from [employer]. Review of Systems Const Denies chills, Denies headache(s) and Denies weight loss ENT Denies headache(s) Card Denies chest pain, Denies syncope, Denies irregular heart rhythm and Denies dyspnea Resp Denies chest congestion, Denies cough and Denies dyspnea GI Denies abdominal pain, Denies change in stool character, Denies nausea and Denies vomiting Musc Denies deformity and Denies joint swelling Neuro Denies syncope and Denies headache(s) Physical exam (Primary Care) Vital Signs: Last Vital Signs Pulse 67 10/01/24 13:35 BP 122/60 10/01/24 13:35 Pulse Ox 98 10/01/24 13:35 Oxygen Delivery Method Room Air 10/01/24 13:35 Tobacco/Smoking Status: Tobacco use Status Tobacco use date assessed 10/01/24 10/01/24 13:41 Patient Tobacco Use Status Never used Tobacco 10/01/24 13:41 Tobacco use type Cigarette 10/01/24 13:41 e-Cigarette/Vaping Use Never Used 10/01/24 13:41 PHQ-9: PHQ-9 Score PHQ-9: Total score 0 10/01/24 13:41 Depression Screening Interpretation: Positive Thrive Assessment: Date of Thrive Assessment Date Thrive assessed 10/01/24 10/01/24 13:41 Currently or been in a relationship where the following occur: No concerns reported Const General: cooperative, comfortable, no acute distress and alert Neck Neck: Yes no lymphadenopathy Thyroid: Thyroid normal Resp Effort & Inspection: normal respiratory effort Auscultation: clear to auscultation bilaterally Percussion: percussion normal Cardio Jugular venous distension: no JVD Palpation: normal PMI Rate: regular rate Rhythm: regular rhythm Heart sounds: S1 normal heart sound present and S2 normal heart sound present GI Inspection: Yes normal to inspection Palpation (GI): No hepatosplenomegaly present Skin General skin exam: no rashes or lesions noted Extrem General: Yes no clubbing, cyanosis or edema Coding Level of Care Code Est Pt Level 3 (16665) Diagnoses Gastroenteritis K52.9 Assessment & Plan Assessment & Plan (1) Gastroenteritis: Code(s): K52.9 - Noninfective gastroenteritis and colitis, unspecified Plan supportive care; ref to gi Orders: Referrals Gastroenterology Referral Z12.11 - Encounter for screening for malignant neoplasm of colon
[2024-10-01 13:35] VITALS: BP 122/60; PULSE 67; O2SAT 98
== END 2024-10-01 13:48 | disposition home or self-care (01) ==
PROVIDERS: PCP Internal Medicine; Visit Provider Internal Medicine
DX: K52.9 Noninfective gastroenteritis and colitis, unspecified (principal)

== ENCOUNTER → 2024-10-01 13:33 | Outpatient (BNVA) | payer MEDICARE, SELFPAY | PROVIDERS: PCP Internal Medicine; Visit Provider Internal Medicine | DX: K52.9 Noninfective gastroenteritis and colitis, unspecified (principal) | CPT/HCPCS: 96127; 99212 ==

== ENCOUNTER 2024-11-01 13:46 | Outpatient (AMB) | payer MEDICARE, SELFPAY ==
[2024-11-01 13:57] VITALS: BP 124/70; PULSE 68; BMI 42.3
--- NOTE | 2024-11-01 13:57 | A.OFFVIS_ITS ---
Vital Signs 11/01/24 13:57 Height 5 ft 9 in Weight 286 lb 9.615 oz BMI 42.3 BP 124/70 Blood Pressure Location Lt brachial Position Sitting Pulse 68 Intake Visit Reasons: Diverticulosis of Colon Intake Note: Kirstin presents in the office as a Cathy patient follow up for Diverticulosis of the colon. CC: She states that she is having pains in the stomach - she gets cramping and then explosive diarrhea. She is now having lower back pains and was told she had norovirus. Skoog Operator Required: No Allergies bee pollen Allergy (Severe, Verified 11/01/24 13:57) Swelling ciprofloxacin [From Cipro] Allergy (Severe, Verified 11/01/24 13:57) RASH-ITCHING Penicillins Allergy (Intermediate, Verified 11/01/24 13:57) Rash Sulfa (Sulfonamide Antibiotics) [SULFA (SULFONAMIDE ANTIBIOTICS)] Allergy (Inte rmediate, Verified 11/01/24 13:57) HIVES HPI Comments Details: 68 y.o F with PMH of diverticulosis, hypothyroidism, who is here for change in bowel habits. Reports for almost a year now has episodes of crampy abd pain assoc with sudden onset of loose BM. Pain gets better with defecation. Onset is sometimes assoc with certain foods. No blood in stool. No unintentional weight loss. Happens 1-2 times a week. No night time sx. Has been hesitant to take scheduled imodium. Of note - pt also had a recent ER visit in Aug 2024 for what turned out to be Norovirus illness. Last colo 2021 (Dr Hopkins) Good prep. No polyps. Extensive L sided diverticulosis. [facility] Medical History Hiatal hernia Peptic ulcer Hx of simple renal cyst History of fatty infiltration of liver Elevated cholesterol Thyroid disease HTN (hypertension) Surgical History History of endoscopy History of colonoscopy History of tonsillectomy and adenoidectomy History of bilateral cataract extraction Family History Father CVD (cardiovascular disease) Past heart attack Mother Breast cancer Bone metastases Brother Past heart attack Social History Household Members: None Housing: Apartment Are you a primary career development associate to a significant other at home: No Do you presently have visiting nurse or other home services: No Alcohol intake: never Patient Tobacco Use Status: Never used Tobacco Tobacco use type: Cigarette e-Cigarette/Vaping Use: Never Used Second Hand Smoke Exposure: No service: No Current occupational status: retired Cognitive needs: No Hearing needs: No Vision needs: No Review of Systems Const All systems reviewed & are unremarkable except as noted in HPI and below Physical Exam Vital Signs: Last Vital Signs Pulse 68 11/01/24 13:57 BP 124/70 11/01/24 13:57 BMI result Body Mass Index 42.3 No apparent distress Nonicteric Abdomen soft, nondistended Alert and oriented x3, normal gait Assessment & Plan Assessment & Plan (1) Chronic diarrhea: Code(s): K52.9 - Noninfective gastroenteritis and colitis, unspecified Category: Medical (2) Left lower quadrant abdominal pain: Code(s): R10.32 - Left lower quadrant pain Category: Medical Plan Ddx include diverticular disease such as SUDD, hyperthyroidism, IBD, IBS, microscopic colitis. Plan: - Labs ordered as below - Pt advised to incorporate fiber into her diet - Can take imodium goldie demetrius night before she has errands/chores to do - Dicyclomine 10 TID PRN for abd cramping - Follow up 2 months Orders: Orders TSH reflex Free T4 Today K52.9 - Noninfective gastroenteritis and colitis, unspecified Transglutaminase IgA Today K52.9 - Noninfective gastroenteritis and colitis, unspecified Immunoglobulin A Today K52.9 - Noninfective gastroenteritis and colitis, unspecified Calprotectin, Fecal Today K52.9 - Noninfective gastroenteritis and colitis, unspecified Complete Blood Count no Diff Today K52.9 - Noninfective gastroenteritis and colitis, unspecified Comprehensive Met. Panel Today K52.9 - Noninfective gastroenteritis and colitis, unspecified Medications: New dicyclomine 10 mg PO TID 90 days PRN 90 caps 1RF abdominal pain Discontinued tizanidine Discontinued Reason: Patient no longer taking 4 mg PO Q8H PRN 60 tabs 3RF muscle spasticity Coding Level of Care Code Est Pt Level 4 (30064) Diagnoses Chronic diarrhea K52.9 Left lower quadrant abdominal pain R10.32
== END 2024-11-01 14:14 | disposition home or self-care (01) ==
PROVIDERS: PCP Internal Medicine; Visit Provider Internal Medicine
DX: K52.9 Noninfective gastroenteritis and colitis, unspecified (principal); R10.32 Left lower quadrant pain
CPT/HCPCS: 99214

== ENCOUNTER 2024-11-01 13:46 | Outpatient (REF) | payer MEDICARE, SELFPAY ==
[2024-11-01 15:31] LABS: Hematocrit 43.4 % (37.0-47.0); Mean Corpuscular HGB Conc 32.3 g/dl (31.0-35.0); Mean Corpuscular Hemoglobin 30.5 pg (27.0-33.0); Mean Corpuscular Volume 94.6 fL (80.0-98.0); Mean Platelet Volume 9.8 fL (9.4-12.3); Platelet Count 244 X10*3/uL (160-400); Red Blood Count 4.59 X10*6/uL (4.20-5.50); Red Cell Distribution Width 13.1 % (11.0-16.0); White Blood Count 9.2 X10*3/uL (4.8-10.8)
[2024-11-01 17:50] LABS: Alanine Aminotransferase 21 U/L (0-31); Albumin Level 4.3 g/dL (3.5-5.0); Alkaline Phosphatase 101 U/L (39-117); Anion Gap 11 (12-20); Aspartate Amino Transferase 26 U/L (5-31); Bilirubin Total 0.5 mg/dL (0.0-1.0); Blood Urea Nitrogen 14 mg/dL (9-16); Calcium 8.7 mg/dL (8.4-10.2); Carbon Dioxide 26 mmol/L (22-29); Chloride 107 mmol/L (96-108); Estimated Glomerular Filt Rate > 60; Glucose Random 107 mg/dL (60-115); Potassium 3.8 mmol/L (3.3-5.1); Sodium 140 mmol/L (135-145); Total Protein 7.4 g/dL (6.5-8.0)
[2024-11-01 18:07] LABS: TSH reflex Free T4 0.83 uIU/mL (0.32-4.0)
[2024-11-04 09:14] LABS: Immunoglobulin A 147 mg/dL (70-320)
[2024-11-04 15:58] LABS: Transglutaminase IgA <1.0 U/mL
== END 2024-11-01 13:47 | disposition home or self-care (01) ==
LOC: HO.LAB 13:46
PROVIDERS: PCP Internal Medicine; Visit Provider Internal Medicine
DX: K52.9 Noninfective gastroenteritis and colitis, unspecified (principal); R10.32 Left lower quadrant pain; E03.9 Hypothyroidism, unspecified
CPT/HCPCS: 36415; 80053; 82784; 84443; 85027; 86364; 99212

== ENCOUNTER 2024-11-02 08:16 | Outpatient (REF) | payer MEDICARE, SELFPAY ==
[2024-11-08 23:09] LABS: Calprotectin, Fecal 131 mcg/g
== END 2024-11-02 08:17 | disposition home or self-care (01) ==
LOC: HO.LNP 08:16
PROVIDERS: Visit Provider Internal Medicine
DX: K52.9 Noninfective gastroenteritis and colitis, unspecified (principal)
CPT/HCPCS: 83993

== ENCOUNTER 2024-11-18 09:46 | Outpatient (REF) | payer MEDICARE, SELFPAY | END 2024-11-18 09:47 | disposition home or self-care (01) | LOC: HO.MAMMO 09:46 | PROVIDERS: PCP Internal Medicine; Visit Provider Internal Medicine | DX: Z12.31 Encounter for screening mammogram for malignant neoplasm of breast (principal) | CPT/HCPCS: 77063; 77067 ==

== ENCOUNTER → 2024-11-18 10:30 | Outpatient (BNV) | payer MEDICARE, SELFPAY | PROVIDERS: PCP Internal Medicine; Visit Provider Internal Medicine | DX: Z12.31 Encounter for screening mammogram for malignant neoplasm of breast (principal) | CPT/HCPCS: 77063; 77067 ==

== ENCOUNTER 2024-12-19 06:10 | Outpatient (REF) | payer MEDICARE, SELFPAY ==
[2024-12-19 06:26] LABS: MANUAL DIFF FLAG NO
[2024-12-19 07:27] LABS: Basophils Absolute Auto 0.1 X10*3/uL (0.0-0.2); Basophils Percent Auto 0.8 % (0-2); Eosinophils Absolute Auto 0.2 X10*3/uL (0.0-0.4); Eosinophils Percent Auto 2.3 % (0-4); Hematocrit 41.8 % (37.0-47.0); Imm Gran Abs Auto 0.02 X10*3/uL (0.00-0.03); Imm Gran Pct Auto 0.3 % (0.0-0.4); Lymphocytes Absolute Auto 2.3 X10*3/uL (1.2-4.9); Lymphocytes Percent Auto 34.7 % (20-40); Mean Corpuscular HGB Conc 33.5 g/dl (31.0-35.0); Mean Corpuscular Hemoglobin 31.5 pg (27.0-33.0); Mean Corpuscular Volume 93.9 fL (80.0-98.0); Mean Platelet Volume 9.9 fL (9.4-12.3); Monocytes Absolute Auto 0.5 X10*3/uL (0.1-1.2); Monocytes Percent Auto 7.1 % (2-11); Neutrophils Absolute Auto 3.6 x10*3/uL (2.0-8.3); Neutrophils Percent Auto 54.8 % (45-73); Platelet Count 223 X10*3/uL (160-400); Red Blood Count 4.45 X10*6/uL (4.20-5.50); Red Cell Distribution Width 12.9 % (11.0-16.0); White Blood Count 6.6 X10*3/uL (4.8-10.8)
[2024-12-19 07:51] LABS: Alanine Aminotransferase 24 U/L (0-31); Albumin Level 4.1 g/dL (3.5-5.0); Alkaline Phosphatase 86 U/L (39-117); Anion Gap 12 (12-20); Aspartate Amino Transferase 28 U/L (5-31); Bilirubin Total 0.7 mg/dL (0.0-1.0); Blood Urea Nitrogen 13 mg/dL (9-16); Calcium 9.2 mg/dL (8.4-10.2); Carbon Dioxide 27 mmol/L (22-29); Chloride 107 mmol/L (96-108); Cholesterol 215 mg/dL (<200); Estimated Glomerular Filt Rate > 60; Glucose Fasting 98 mg/dL (60-99); HDL Cholesterol 43 mg/dL (>40); LDL Cholesterol Calculated 135 mg/dL (<100); Potassium 4.2 mmol/L (3.3-5.1); Sodium 142 mmol/L (135-145); Total Protein 7.3 g/dL (6.5-8.0); Triglycerides 187 mg/dL (<150)
[2024-12-19 08:20] LABS: Thyroid Stimulating Hormone 1.05 uIU/mL (0.32-4.0)
== END 2024-12-19 06:11 | disposition home or self-care (01) ==
LOC: HO.LAB 06:10
PROVIDERS: PCP Internal Medicine; Visit Provider Internal Medicine
DX: Z13.0 Encounter for screening for diseases of the blood and blood-forming organs and certain disorders involving the immune mechanism (principal); Z13.29 Encounter for screening for other suspected endocrine disorder; Z13.6 Encounter for screening for cardiovascular disorders
CPT/HCPCS: 36415; 80053; 80061; 84443; 85025

== ENCOUNTER 2024-12-27 08:04 | Outpatient (AMB) | payer MEDICARE, SELFPAY ==
[2024-12-27 08:12] VITALS: BP 132/72; PULSE 57; O2SAT 96
--- NOTE | 2024-12-27 08:12 | MHC.PC.OV ---
Vital Signs 12/27/24 08:12 Height 5 ft 9 in BMI Reason not done Patient refused/unable BP 132/72 Blood Pressure Location Lt brachial Position Sitting Pulse 57 Pulse Source Pulse Oximeter Pulse Oximetry (%) 96 Oxygen Delivery Method Room Air Intake Visit Reasons: 4mth f/u Allergies bee pollen Allergy (Severe, Verified 12/27/24 08:12) Swelling ciprofloxacin [From Cipro] Allergy (Severe, Verified 12/27/24 08:12) RASH-ITCHING Penicillins Allergy (Intermediate, Verified 12/27/24 08:12) Rash Sulfa (Sulfonamide Antibiotics) [SULFA (SULFONAMIDE ANTIBIOTICS)] Allergy (Intermediate, Verified 12/27/24 08:12) HIVES Medication List - Last Reconciled 12/27/24 by Ilia Stanton MD atenolol 50 mg PO DAILY dicyclomine 20 mg PO QID dicyclomine 10 mg PO TID PRN furosemide 20 mg PO DAILY 90 days levothyroxine 175 mcg PO DAILY lovastatin 20 mg PO DAILY omeprazole 40 mg (2 x 20 mg) PO DAILY peg 3350-electrolytes 236-22.74-6.74 -5.86 gram (Golytely) 240 mL PO Q10M Tobacco use date assessed: 12/27/24 Fall risk assessment: No Falls in past year Last assessed Fall Risk: 12/27/24 Dental Screening Dental Screen Date: 12/27/24 Did you have a dental visit in the last 12 months?: Yes Did you have a dental problem in the last 6 months where you did not have access to dental care?: No Was dental information given to patient?: Patient has dentist HPI 4mth f/u HPI Details hypertension and hypothyroidism on rx; doing well; compliant [facility] Medical History Hiatal hernia Peptic ulcer Hx of simple renal cyst History of fatty infiltration of liver Elevated cholesterol Thyroid disease HTN (hypertension) Surgical History History of endoscopy History of colonoscopy History of tonsillectomy and adenoidectomy History of bilateral cataract extraction Family History Father CVD (cardiovascular disease) Past heart attack Mother Breast cancer Bone metastases Brother Past heart attack Social History Household Members: None Housing: Apartment Are you a primary urgent care nurse practitioner to a significant other at home: No Do you presently have visiting nurse or other home services: No Alcohol intake: never Patient Tobacco Use Status: Never used Tobacco Tobacco use type: Cigarette e-Cigarette/Vaping Use: Never Used Second Hand Smoke Exposure: No service: No Current occupational status: retired Cognitive needs: No Hearing needs: No Vision needs: No Questionnaire PHQ-9 Over the last 2 weeks, how often have you been bothered by any of the following problems? 1. Little interest or pleasure in doing things: not at all 2. Feeling down, depressed, or hopeless: not at all 3. Trouble falling or staying asleep, or sleeping too much: not at all 4. Feeling tired or having little energy: not at all 5. Poor appetite or overeating: not at all 6. Feeling bad about yourself - or that you are a failure or have let yourself or your family down: not at all 7. Trouble concentrating on things, such as reading the newspaper or watching television: not at all 8. Moving or speaking so slowly that other people could have noticed. Or the opposite - being so fidgety or restless that you have been moving around a lot more than usual: not at all 9. Thoughts that you would be better off or of hurting yourself in some way: not at all Total score: 0 Depression Screening Interpretation: Negative Depression Screening Done: Yes Source: Developed by Drs. Nura Ash, Shelly Dickey, Berto Schmitt and colleagues, with an educational jermaine from [employer]. Thrive Questionnaire Date Thrive assessed: 12/27/24 I am a: Patient What is your living situation today?: I have a steady place to live Within the past 12 months, did the food you bought not last and you didn't have the money to get more?: Never true Within the past 12 months, did you worry whether your food would run out before you got money to buy more?: Never true Do you have trouble paying for medicines?: No Do you have trouble getting transportation to medical appointments?: No Do you have trouble paying your heating and electricity bill?: No Do you have trouble taking care of your child, family member or friend?: No Do you have trouble with day-to-day activities such as bathing, preparing meals, shopping, managing finances, etc.?: No Are you currently unemployed and looking for a job?: Yes Are you interested in more education?: No Please select the resources that you would like help with: None Currently or been in a relationship where the following occur: No concerns reported THRIVE Score: 0 AUDIT C Alcohol Use Questionnaire (AUDIT-C) 1. How often do you have a drink containing alcohol?: Never Total Score: 0 Score Reviewed/Action Taken: Yes SOWMYA-7 AMB Questionnaire SOWMYA-7 Date SOWMYA - 7 assessed: 12/27/24 Feeling nervous, anxious, or on edge: 0 = Not at all Not being able to stop or control worryin = Not at all Worrying too much about different things: 0 = Not at all Trouble relaxin = Not at all Being so restless that it is hard to sit still: 0 = Not at all Becoming easily annoyed or irritable: 0 = Not at all Feeling afraid as if something awful might happen: 0 = Not at all Total SOWMYA-7 score (0-4 normal; 5-9 mild; 10-14 moderate; 15-21 severe): 0 Source: Developed by Drs. Nura Ash, Shelly Dickey, Berto Schmitt and colleagues, with an educational jermaine from [employer]. Review of Systems Const Denies chills, Denies headache(s) and Denies weight loss ENT Denies headache(s) Card Denies chest pain, Denies syncope, Denies irregular heart rhythm and Denies dyspnea Resp Denies chest congestion, Denies cough and Denies dyspnea GI Denies abdominal pain, Denies change in stool character, Denies nausea and Denies vomiting Musc Denies deformity and Denies joint swelling Neuro Denies syncope and Denies headache(s) Physical exam (Primary Care) Vital Signs: Last Vital Signs Pulse 57 12/27/24 08:12 BP 132/72 12/27/24 08:12 Pulse Ox 96 12/27/24 08:12 Oxygen Delivery Method Room Air 12/27/24 08:12 Tobacco/Smoking Status: Tobacco use Status Tobacco use date assessed 12/27/24 12/27/24 08:18 Patient Tobacco Use Status Never used Tobacco 12/27/24 08:18 Tobacco use type Cigarette 12/27/24 08:18 e-Cigarette/Vaping Use Never Used 12/27/24 08:18 PHQ-9: PHQ-9 Score PHQ-9: Total score 0 12/27/24 08:18 Depression Screening Interpretation: Negative Thrive Assessment: Date of Thrive Assessment Date Thrive assessed 12/27/24 12/27/24 08:18 Currently or been in a relationship where the following occur: No concerns reported Const General: cooperative, comfortable, no acute distress and alert Neck Neck: Yes no lymphadenopathy Thyroid: Thyroid normal Resp Effort & Inspection: normal respiratory effort Auscultation: clear to auscultation bilaterally Percussion: percussion normal Cardio Jugular venous distension: no JVD Palpation: normal PMI Rate: regular rate Rhythm: regular rhythm Heart sounds: S1 normal heart sound present and S2 normal heart sound present GI Inspection: Yes normal to inspection Palpation (GI): No hepatosplenomegaly present Skin General skin exam: no rashes or lesions noted Extrem General: Yes no clubbing, cyanosis or edema Coding Level of Care Code Est Pt Level 3 (30952) Diagnoses Hypothyroidism E03.9 HTN (hypertension) I10 Assessment & Plan Assessment & Plan (1) Hypothyroidism: Code(s): E03.9 - Hypothyroidism, unspecified Category: Medical Plan: stable; same rx (2) HTN (hypertension): Code(s): I10 - Essential (primary) hypertension Category: Medical Plan: stable; same rx Medications: Refilled atenolol 50 mg PO DAILY 90 tabs 3RF omeprazole 40 mg (2 x 20 mg) PO DAILY 180 caps 0RF
== END 2024-12-27 09:38 | disposition home or self-care (01) ==
PROVIDERS: PCP Internal Medicine; Visit Provider Internal Medicine
DX: E03.9 Hypothyroidism, unspecified (principal); I10 Essential (primary) hypertension

== ENCOUNTER → 2024-12-27 08:04 | Outpatient (BNVA) | payer MEDICARE, SELFPAY | PROVIDERS: PCP Internal Medicine; Visit Provider Internal Medicine | DX: E03.9 Hypothyroidism, unspecified (principal); I10 Essential (primary) hypertension | CPT/HCPCS: 99212 ==

== ENCOUNTER 2025-02-04 08:22 | Day surgery (SDC) | payer MEDICARE, SELFPAY ==
[2025-01-31 07:18] VITALS: BMI 42.2
--- NOTE | 2025-02-03 12:41 | HO.ANESPROP2 ---
HPI - Anesthesia Eval Consult details Narrative: 69yo F for Colonoscopy PMFSH Active Problems Active Problems: All Active Problems Left lower quadrant abdominal pain (Acute) Chronic diarrhea (Acute) Low back pain (Acute) Physical exam (Acute) Coronary artery disease (Acute) Back pain (Acute) Other and unspecified hyperlipidemia (Acute) Essential hypertension (Acute) Morbid obesity (Acute) SOB (shortness of breath) (Acute) Chest pain (Acute) Pain aggravated by breathing (Acute) Dyspnea (Acute) Cough (Acute) Dizziness (Acute) NAFLD (nonalcoholic fatty liver disease) (Acute) Diverticulosis of colon (Acute) Hiatal hernia (Acute) Hypothyroidism (Acute) Peripheral edema (Acute) Abdominal pain (Acute) Abdominal bloating (Acute) Early satiety (Acute) Encounter for screening colonoscopy (Acute) HTN (hypertension) (Acute) Past Medical History Medical History Hiatal hernia Peptic ulcer Hx of simple renal cyst History of fatty infiltration of liver Elevated cholesterol Thyroid disease HTN (hypertension) Family History Family History Father CVD (cardiovascular disease) Past heart attack Mother Breast cancer Bone metastases Brother Past heart attack Family history of problems with anesthesia: No Surgical History Surgical History History of endoscopy History of colonoscopy History of tonsillectomy and adenoidectomy History of bilateral cataract extraction History of Problems with Anesthesia: No Social History Social History Household Members: None Housing: Apartment Are you a primary dog daycare provider to a significant other at home: No Do you presently have visiting nurse or other home services: No Alcohol intake: never Patient Tobacco Use Status: Never used Tobacco Tobacco use type: Cigarette e-Cigarette/Vaping Use: Never Used Second Hand Smoke Exposure: No service: No Current occupational status: retired Cognitive needs: No Hearing needs: No Vision needs: No Meds Allergies Allergy/AdvReac Type Severity Reaction Status Date / Time bee pollen Allergy Severe Swelling Verified 12/27/24 08:12 ciprofloxacin [From Cipro] Allergy Severe RASH-ITCHIN Verified 12/27/24 08:12 G Penicillins Allergy Intermediate Rash Verified 12/27/24 08:12 Sulfa (Sulfonamide Allergy Intermediate HIVES Verified 12/27/24 08:12 Antibiotics) [SULFA (SULFONAMIDE ANTIBIOTICS)] Exam Height,Weight and Vital Signs: Height 5 ft 9 in Weight 129.727 kg Pertinent Lab Results Pertinent Lab Results: Laboratory Tests 12/19/24 06:24 WBC 6.6 Hgb 14.0 Hct 41.8 Plt Count 223 Sodium 142 Potassium 4.2 Chloride 107 Carbon Dioxide 27 BUN 13 Creatinine 0.81 Narrative Narrative: EKG 08/2024 Vent. Rate : 096 BPM Atrial Rate : 096 BPM P-R Int : 156 ms QRS Dur : 106 ms QT Int : 354 ms P-R-T Axes : 031 -58 044 degrees QTc Int : 447 ms Normal sinus rhythm Low voltage QRS Left anterior fascicular block Possible Lateral infarct , age undetermined Abnormal ECG When compared with ECG of 01-SEP-2024 13:33, Vent. rate has increased BY 33 BPM Borderline criteria for Lateral infarct are now Present Nonspecific T wave abnormality now evident in Lateral leads Assessment and Plan Assessment Anesthesia Assessment: Chart Reviewed Final Anesthetic Review Family History of Problems with Anesthesia: No History of Problems with Anesthesia: No
[2025-02-04 09:01] VITALS: BMI 42.2
[2025-02-04 09:07] VITALS: BP 137/72; PULSE 57; RESP 15; TEMP 36.5; O2SAT 99
--- NOTE | 2025-02-04 09:24 | MHC.SHP ---
Pre-Procedural Eval Section A - 24 Hr Update-Section A only Date of Service: 02/04/25 Section B - Complete if H&P > 30 days Chief Complaint: Lower abd pain, diarrhea Details of Present Illness: Hiatal hernia Peptic ulcer Hx of simple renal cyst History of fatty infiltration of liver Elevated cholesterol Thyroid disease HTN (hypertension) Surgical History History of endoscopy History of colonoscopy History of tonsillectomy and adenoidectomy History of bilateral cataract extraction Present Medications: see Short Stay Collaborative assessment Allergies: Allergies Allergy/AdvReac Type Severity Reaction Status Date / Time bee pollen Allergy Severe Swelling Verified 02/04/25 09:01 ciprofloxacin [From Cipro] Allergy Severe RASH-ITCHIN Verified 02/04/25 09:01 G Penicillins Allergy Intermediate Rash Verified 02/04/25 09:01 Sulfa (Sulfonamide Allergy Intermediate HIVES Verified 02/04/25 09:01 Antibiotics) [SULFA (SULFONAMIDE ANTIBIOTICS)] Review of Systems Review of Systems Comment: 10 point ROS negative Exam Exam Comment: Gen appear: No acute distress HEENT: no icterus Chest: No overt resp distress Abd: soft, nontender, nondistended Psych: Stable affect, answering questions appropriately Neuro: A/Ox3 noted to move all extremities spontaneously Ext: no peripheral edema Plan Diagnosis/Plan: Unchanged I have reviewed the history and physical and performed a pertinent physical examination on my patient. No changes have occurred unless specified. Time Spent With Patient Time: Total time managing care of this patient today ____ minutes.
[2025-02-04] MEDS: Lactated Ringers 1,000 ML 100 ML IVCONT (09:35)
--- NOTE | 2025-02-04 10:07 | P.CONAN_ITS ---
[facility] Active Problems Active Problems: All Active Problems Left lower quadrant abdominal pain (Acute) Chronic diarrhea (Acute) Low back pain (Acute) Physical exam (Acute) Coronary artery disease (Acute) Back pain (Acute) Other and unspecified hyperlipidemia (Acute) Essential hypertension (Acute) Morbid obesity (Acute) SOB (shortness of breath) (Acute) Chest pain (Acute) Pain aggravated by breathing (Acute) Dyspnea (Acute) Cough (Acute) Dizziness (Acute) NAFLD (nonalcoholic fatty liver disease) (Acute) Diverticulosis of colon (Acute) Encounter for screening colonoscopy (Acute) Early satiety (Acute) Abdominal bloating (Acute) Abdominal pain (Acute) Peripheral edema (Acute) Hypothyroidism (Acute) Hiatal hernia (Acute) HTN (hypertension) (Acute) Past Medical History Medical History Kidney cysts Fatty liver Hiatal hernia Peptic ulcer Hx of simple renal cyst History of fatty infiltration of liver Elevated cholesterol Thyroid disease HTN (hypertension) Functional capacity: independent ambulation Patient : No Family History Family History Father CVD (cardiovascular disease) Past heart attack Mother Breast cancer Bone metastases Brother Past heart attack Family history of problems with anesthesia: No Surgical History Surgical History History of endoscopy History of colonoscopy History of tonsillectomy and adenoidectomy History of bilateral cataract extraction History of Problems with Anesthesia: No Social History Social History Household Members: None Housing: Apartment Are you a primary personal care attendant to a significant other at home: No Do you presently have visiting nurse or other home services: No Alcohol intake: never Patient Tobacco Use Status: Never used Tobacco Tobacco use type: Cigarette e-Cigarette/Vaping Use: Never Used Second Hand Smoke Exposure: No Use of substances other than those prescribed or required for medical reasons: No Are you DNR?: No Advance Directives: No Advance Directives Information Provided: Yes service: No Current occupational status: retired Cognitive needs: No Hearing needs: No Vision needs: No Meds Allergies Allergy/AdvReac Type Severity Reaction Status Date / Time bee pollen Allergy Severe Swelling Verified 02/04/25 09:01 ciprofloxacin [From Cipro] Allergy Severe RASH-ITCHIN Verified 02/04/25 09:01 G Penicillins Allergy Intermediate Rash Verified 02/04/25 09:01 Sulfa (Sulfonamide Allergy Intermediate HIVES Verified 02/04/25 09:01 Antibiotics) [SULFA (SULFONAMIDE ANTIBIOTICS)] Active Medications: Current Medications Lactated Ringer's (Lr) 1,000 mls @ 100 mls/hr IVCONT .Q10H KIM Last Admin: 02/04/25 09:35 Dose: 100 mls/hr Exam Height,Weight and Vital Signs: Height 5 ft 9 in Weight 129.727 kg Last Vital Signs Temp 97.7 F 02/04/25 09:07 Pulse 57 02/04/25 09:07 Resp 15 02/04/25 09:07 BP 137/72 02/04/25 09:07 Pulse Ox 99 02/04/25 09:07 O2 Del Method Room Air 02/04/25 09:07 Airway Mallampati Class: III TM Dist: >3cm Neck ROM: Full Heart: RRR Lungs: CTA Assessment and Plan Assessment Anesthesia Assessment: Anesthesia Plan Discussed and Smoking Cess. Discussed Final Anesthetic Review Family History of Problems with Anesthesia: No History of Problems with Anesthesia: No NPO: Yes ASA Class: III Final Preanesthetic Review: Meds/Allgs Chart Reviewed and Consent Obtained/Reviewed Patient Risk: Intermediate Anesthetic Plan Anesthetic Plan: MAC: Disposition: Standard PACU
--- NOTE | 2025-02-04 10:34 | P.CONAN_ITS ---
[facility] Active Problems Active Problems: All Active Problems Left lower quadrant abdominal pain (Acute) Chronic diarrhea (Acute) Low back pain (Acute) Physical exam (Acute) Coronary artery disease (Acute) Back pain (Acute) Other and unspecified hyperlipidemia (Acute) Essential hypertension (Acute) Morbid obesity (Acute) SOB (shortness of breath) (Acute) Chest pain (Acute) Pain aggravated by breathing (Acute) Dyspnea (Acute) Cough (Acute) Dizziness (Acute) NAFLD (nonalcoholic fatty liver disease) (Acute) Diverticulosis of colon (Acute) Encounter for screening colonoscopy (Acute) Early satiety (Acute) Abdominal bloating (Acute) Abdominal pain (Acute) Peripheral edema (Acute) Hypothyroidism (Acute) Hiatal hernia (Acute) HTN (hypertension) (Acute) Past Medical History Medical History Kidney cysts Fatty liver Hiatal hernia Peptic ulcer Hx of simple renal cyst History of fatty infiltration of liver Elevated cholesterol Thyroid disease HTN (hypertension) Functional capacity: independent ambulation Family History Family History Father CVD (cardiovascular disease) Past heart attack Mother Breast cancer Bone metastases Brother Past heart attack Family history of problems with anesthesia: No Surgical History Surgical History History of endoscopy History of colonoscopy History of tonsillectomy and adenoidectomy History of bilateral cataract extraction History of Problems with Anesthesia: No Social History Social History Household Members: None Housing: Apartment Are you a primary day care supervisor to a significant other at home: No Do you presently have visiting nurse or other home services: No Alcohol intake: never Patient Tobacco Use Status: Never used Tobacco Tobacco use type: Cigarette e-Cigarette/Vaping Use: Never Used Second Hand Smoke Exposure: No Use of substances other than those prescribed or required for medical reasons: No Are you DNR?: No Advance Directives: No Advance Directives Information Provided: Yes Patient : No service: No Current occupational status: retired Cognitive needs: No Hearing needs: No Vision needs: No Meds Allergies Allergy/AdvReac Type Severity Reaction Status Date / Time bee pollen Allergy Severe Swelling Verified 02/04/25 09:01 ciprofloxacin [From Cipro] Allergy Severe RASH-ITCHIN Verified 02/04/25 09:01 G Penicillins Allergy Intermediate Rash Verified 02/04/25 09:01 Sulfa (Sulfonamide Allergy Intermediate HIVES Verified 02/04/25 09:01 Antibiotics) [SULFA (SULFONAMIDE ANTIBIOTICS)] Active Medications: Current Medications Lactated Ringer's (Lr) 1,000 mls @ 100 mls/hr IVCONT .Q10H KIM Last Admin: 02/04/25 09:35 Dose: 100 mls/hr Naloxone HCl (Naloxone Hcl 0.4 Mg/Ml Vial) 0.04 mg IVPUSH Q5M PRN PRN Reason: Excessive sedation or RR < 8 Exam Height,Weight and Vital Signs: Height 5 ft 9 in Weight 129.727 kg Last Vital Signs Temp 97.7 F 02/04/25 09:07 Pulse 57 02/04/25 09:07 Resp 15 02/04/25 09:07 BP 137/72 02/04/25 09:07 Pulse Ox 99 02/04/25 09:07 O2 Del Method Room Air 02/04/25 09:07 Airway Mallampati Class: III TM Dist: >3cm Neck ROM: Full Heart: RRR Lungs: CTA Assessment and Plan Assessment Anesthesia Assessment: Anesthesia Plan Discussed and Chart Reviewed Final Anesthetic Review Family History of Problems with Anesthesia: No History of Problems with Anesthesia: No NPO: Yes ASA Class: III Final Preanesthetic Review: Meds/Allgs Chart Reviewed, Consent Obtained/Reviewed and Anes Risks/Benef Reviewed Patient Risk: Intermediate Procedure Risk: Low Anesthetic Plan Anesthetic Plan: MAC: Disposition: Standard PACU
--- NOTE | 2025-02-04 11:06 | P.OPN-COLO_ITS ---
Colonoscopy Operative Note Operative Note Date of Service: 02/04/25 Narrative: Procedure: Colonoscopy Indication: Lower abd pain, diarrhea Endoscopist: Malini Singh MD Anesthesia Provider: Dr Sol Saavedra Anesthesia type: MAC Instrument: Olympus [id number]-H190L Consent: Indication, risks vs benefits, and alternatives were discussed with the patient who gave written informed consent to proceed. EKG, pulse, pulse oximetry and blood pressure were monitored throughout the procedure. Please see anesthesia flowsheet. Procedure: The patient was brought to the procedure room and placed in the left lateral decubitus position. An abdominal binder was affixed to the lower abdomen. IV medications were administered by the anesthesia provider in attendance. A digital rectal exam was performed which was normal. A distal attachment cap was affixed to the tip of the colonoscope which was then inserted through the anus and advanced through the colon to the cecum at 75 cm,and terminal ileum. Appendiceal orifice and ileocecal valve were identified. Mucosa was carefully examined under high definition white light as the instrument was slowly withdrawn in a retrograde panoramic fashion. Retroflexion was performed in rectum. The procedure was not difficult. There were no immediate obvious complications. The quality of the prep was BBPS: 2+3+3 = adequate Withdrawal time 9 minutes. Limitations: No limitations. Findings: Mucosa: Normal to cecum and terminal ileum. Cold forceps biopsies were taken from right and left colon and sent for histology. Protruding lesions: * Medium internal hemorrhoids without stigmata of recent bleeding. Excavated lesions: * Extensive diverticulosis of left sided colon. Impression: 1. Normal colon mucosa (biopsy) 2. Diverticulosis 3. Internal hemorrhoids Recommendations: - Follow path results. - Repeat colonoscopy in 10 years if patient in good health.
[2025-02-04 11:08] VITALS: BP 134/67; PULSE 66; RESP 16; TEMP 36.8; O2SAT 95
[2025-02-04 11:23] VITALS: BP 101/60; PULSE 50; RESP 16; O2SAT 98
--- NOTE | 2025-02-04 11:29 | HO.POSTANES ---
Post Anesthesia Evaluation Post Anesthesia Evaluation Date of Service: 02/04/25 Vital Signs: Vital Signs Temp Pulse Resp BP Pulse Ox O2 Del Method 02/04/25 11:23 50 16 101/60 98 Room Air 02/04/25 11:08 98.2 F 66 16 134/67 95 Room Air 02/04/25 09:07 97.7 F 57 15 137/72 99 Room Air Anesthesia: Monitored Mental Status: Awake Pain Control: Satisfactory Nausea/Vomiting: None Hydration: Adequate Anesthesia-Related Issues: No Anes. Related Issues
[2025-02-04 11:38] VITALS: BP 111/63; PULSE 53; RESP 16; O2SAT 98
[2025-02-04 11:52] VITALS: TEMP 36.8
== END 2025-02-04 12:31 | disposition home or self-care (01) ==
PROVIDERS: PCP Internal Medicine; Visit Provider Internal Medicine
PROC: 0DJD8ZZ Inspection of Lower Intestinal Tract, Via Natural or Artificial Opening Endoscopic (ICD-10-PCS; CPT 45378; principal; 2025-02-04 10:20)
DX: R19.4 Change in bowel habit (principal); K57.30 Diverticulosis of large intestine without perforation or abscess without bleeding; K64.8 Other hemorrhoids; R10.32 Left lower quadrant pain; I10 Essential (primary) hypertension; E78.5 Hyperlipidemia, unspecified; E03.9 Hypothyroidism, unspecified; K76.0 Fatty (change of) liver, not elsewhere classified; E66.9 Obesity, unspecified; Z68.41 Body mass index [BMI] 40.0-44.9, adult
CPT/HCPCS: 45380; 88305; J2003; J2704

== ENCOUNTER → 2025-02-04 08:22 | Outpatient (BNV) | payer MEDICARE, SELFPAY | PROVIDERS: PCP Internal Medicine; Visit Provider Internal Medicine | DX: R19.7 Diarrhea, unspecified (principal); R10.30 Lower abdominal pain, unspecified; K64.8 Other hemorrhoids; K57.30 Diverticulosis of large intestine without perforation or abscess without bleeding | CPT/HCPCS: 45380 ==

== ENCOUNTER 2025-02-06 15:20 | Emergency (ER) | payer MEDICARE, SELFPAY ==
--- NOTE | ~2025-02-06 | XR_ITS ---
EXAMINATION: XR ABDOMEN KUB CLINICAL INDICATION: upright r/o perf COMPARISON: None available. Correlation made with CT abdomen and pelvis 09/24/2024. TECHNIQUE: AP upright view of the abdomen. FINDINGS: There is no free intraperitoneal air. Bowel gas pattern is normal/nonspecific. A few air-fluid levels are present in the colon suggesting diarrheal-type illness. No abnormal dilated bowel. The liver appears enlarged, with craniocaudal diameter of 25.5 cm. There are vascular calcifications. There are no additional abnormal soft tissue calcifications. Lung bases demonstrate linear type atelectasis in the left lower lobe. There is no acute or suspicious osseous abnormality. There are mild degenerative changes in the spine, SI joints, and hip joints. XR/XR KUB IMPRESSION: 1. There is no evidence of free intraperitoneal air or bowel obstruction. 2. A few scattered air-fluid levels in the colon, suggesting a diarrheal-type illness. 3. Hepatomegaly. Electronically signed by: Ronn Bennett MD 02/06/2025 04:36 PM EDT
--- NOTE | ~2025-02-06 | CT_ITS ---
CLINICAL HISTORY: abdominal pain. S p colonsconpy CT abdomen and pelvis with contrast Comparison: CT/SR - CT ABDOMEN PELVIS W IV CON - 09/24/24 16:39 EST Findings: Diffuse esophageal mural thickening, nonspecific. Atelectasis. Hepatomegaly with steatosis. Subtle lobulated contours along the inferior margins of the liver can be seen with cirrhosis, should be correlated clinically. Right mild left hydronephrosis, without obstructive calculus. Duodenal and proximal small bowel mural thickening can be seen with enteritis. No bowel obstruction. Scattered colonic diverticulosis without diverticulitis or colitis. Normal appendix. Osteopenia with diffuse multilevel spondylosis. Diffuse atheromatous plaque disease throughout the aorta and branch vessels, without aneurysmal dilatation. IMPRESSION: 1. Possible proximal enteritis. 2. Right mild left hydronephrosis, without obstructive calculus. This document has been electronically signed by: Regis Bains MD on 02/06/2025 19:46:46
[2025-02-06 15:49] VITALS: BP 107/72; PULSE 68; RESP 16; TEMP 36.7; O2SAT 97; BMI 42.0
--- NOTE | 2025-02-06 15:50 | ED.ABDPAIN ---
HPI - Abdominal Pain General Chief Complaint: GI Bleed Stated Complaint: blood in stool Time Seen by Provider: 02/06/25 18:24 Related Data Previous Rx's ?Medication ?Instructions ?Recorded lovastatin 20 mg tablet 20 mg PO DAILY #90 tabs 02/01/24 levothyroxine 175 mcg tablet 175 mcg PO DAILY #90 tabs 04/09/24 atenolol 50 mg tablet 50 mg PO DAILY #90 tabs 12/27/24 omeprazole 20 mg capsule,delayed 40 mg (2 x 20 mg) PO DAILY #180 12/27/24 release caps furosemide 20 mg tablet 20 mg PO DAILY 90 days #90 tabs 02/03/25 Allergies Allergy/AdvReac Type Severity Reaction Status Date / Time bee pollen Allergy Severe Swelling Verified 02/06/25 15:50 ciprofloxacin [From Cipro] Allergy Severe RASH-ITCHIN Verified 02/06/25 15:50 G Penicillins Allergy Intermediate Rash Verified 02/06/25 15:50 Sulfa (Sulfonamide Allergy Intermediate HIVES Verified 02/06/25 15:50 Antibiotics) [SULFA (SULFONAMIDE ANTIBIOTICS)] [facility] Past Medical History Medical History Kidney cysts Fatty liver Hiatal hernia Peptic ulcer Hx of simple renal cyst History of fatty infiltration of liver Elevated cholesterol Thyroid disease HTN (hypertension) Surgical History History of endoscopy History of colonoscopy History of tonsillectomy and adenoidectomy History of bilateral cataract extraction Family History Family History Father CVD (cardiovascular disease) Past heart attack Mother Breast cancer Bone metastases Brother Past heart attack Social History Social History Household Members: None Housing: Apartment Are you a primary manager intensive care to a significant other at home: No Do you presently have visiting nurse or other home services: No Alcohol intake: never Patient Tobacco Use Status: Never used Tobacco Tobacco use type: Cigarette Smoked in Last 30 Days: No e-Cigarette/Vaping Use: Never Used Second Hand Smoke Exposure: No Use of substances other than those prescribed or required for medical reasons: No Advance Directives: No Advance Directives Information Provided: Yes Do you have a plan to hurt others: No Plan service: No Current occupational status: retired Cognitive needs: No Hearing needs: No Vision needs: No Physical Exam ED Vital Signs: BMI result Body Mass Index 42.0 Course Course Course Narrative: This is a Rapid Medical Exam performed in triage by Kaylan Rocha PA-C. Full HPI, ROS and PE to be performed by primary ED provider. 69 yo F w/PMHx HTN, HLD, NAFLD, hypothyroid presenting to the ED c/o abdominal cramping with brown rectal bleeding since colonoscopy 2 days ago. PE: abdomen soft with mild lower tenderness Plan: labs, UA, occult stool Medical Decision Making Lab Data 02/06/25 17:49 02/06/25 17:46 Labs: Lab Results 02/06/25 02/06/25 02/06/25 Range/Units 17:46 17:49 19:05 WBC 7.3 (4.8-10.8) X10*3/uL RBC 4.48 (4.20-5.50) X10*6/uL Hgb 13.8 (12.0-16.0) g/dl Hct 40.7 (37.0-47.0) % MCV 90.8 (80.0-98.0) fL MCH 30.8 (27.0-33.0) pg MCHC 33.9 (31.0-35.0) g/dl RDW 13.0 (11.0-16.0) % Plt Count 229 (160-400) X10*3/uL MPV 9.5 (9.4-12.3) fL Immature Gran % (Auto) 0.3 (0.0-0.4) % Neut % (Auto) 56.4 (45-73) % Lymph % (Auto) 33.0 (20-40) % [place] % (Auto) 7.0 (2-11) % Eos % (Auto) 2.5 (0-4) % Baso % (Auto) 0.8 (0-2) % Lymph # (Auto) 2.4 (1.2-4.9) X10*3/uL [place] # (Auto) 0.5 (0.1-1.2) X10*3/uL Eos # (Auto) 0.2 (0.0-0.4) X10*3/uL Baso # (Auto) 0.1 (0.0-0.2) X10*3/uL Abs Immat Gran (auto) 0.02 (0.00-0.03) X10*3/uL Absolute Neuts (auto) 4.1 (2.0-8.3) x10*3/uL Absolute Nucleated RBC 0.000 (0.0-0.012) X10*3/uL Nucleated RBC % (auto) 0.0 (0.0-0.2) /100WBC Sodium 143 (135-145) mmol/L Potassium 4.2 (3.3-5.1) mmol/L Chloride 107 (96-108) mmol/L Carbon Dioxide 26 (22-29) mmol/L Anion Gap 14 (12-20) BUN 9 (9-16) mg/dL Creatinine 0.81 (0.5-1.4) mg/dL Estim Creat Clear Calc 91.8 Estimated GFR > 60 Random Glucose 100 (60-115) mg/dL Calcium 9.3 (8.4-10.2) mg/dL Magnesium 2.0 (1.6-2.6) mg/dL Total Bilirubin 0.5 (0.0-1.0) mg/dL Direct Bilirubin 0.1 (0.0-0.5) mg/dL AST 35 H (5-31) U/L ALT 19 (0-31) U/L Alkaline Phosphatase 93 (39-117) U/L Total Protein 7.4 (6.5-8.0) g/dL Albumin 4.2 (3.5-5.0) g/dL Lipase 27 (8-78) U/L Urine Color Yellow Urine Appearance Clear Urine pH 6.5 (5.0-9.0) Ur Specific [place] <= 1.005 (1.005-1.025) Urine Protein Negative (Neg-Trace) mg/dL Urine Glucose (UA) Negative (Negative) mg/dL Urine Ketones Negative (Negative) mg/dL Urine Blood Negative (Negative) Urine Nitrite Negative (Negative) Ur Leukocyte Esterase Negative (Negative) Stool Occult Blood NEGATIVE (NEGATIVE) Medications Administered Discontinued Medications Generic Name Dose Route Start Last Admin Trade Name Freq PRN Reason Stop Dose Admin Sodium Chloride 1,000 mls @ 999 mls/hr 02/06/25 19:02 02/06/25 19:41 Ns IV 02/06/25 20:02 999 mls/hr .Q1H1M STA Administration Iohexol 100 ml 02/06/25 19:19 02/06/25 19:19 Iohexol 350 Mg/Ml 100 Ml Infus..Btl IV 02/06/25 19:20 100 ml ONCE ONE Administration Discharge Plan Discharge Clinical Impression: Enteritis Patient Disposition: Home, Self-Care Instructions: Enteritis (ED) Additional Instructions: Recommend follow-up with primary care provider. 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 Return to the ED immediately for any abdominal pain, nausea, vomiting, fever, chills, profuse diarrhea, weakness, blood in stool, foul all of stool, or any other concerning symptoms. CT abdomen and pelvis with contrast Comparison: CT/SR - CT ABDOMEN PELVIS W IV CON - 09/24/24 16:39 EST Findings: Diffuse esophageal mural thickening, nonspecific. Atelectasis. Hepatomegaly with steatosis. Subtle lobulated contours along the inferior margins of the liver can be seen with cirrhosis, should be correlated clinically. Right mild left hydronephrosis, without obstructive calculus. Duodenal and proximal small bowel mural thickening can be seen with enteritis. No bowel obstruction. Scattered colonic diverticulosis without diverticulitis or colitis. Normal appendix. Osteopenia with diffuse multilevel spondylosis. Diffuse atheromatous plaque disease throughout the aorta and branch vessels, without aneurysmal dilatation. IMPRESSION: 1. Possible proximal enteritis. 2. Right mild left hydronephrosis, without obstructive calculus. This document has been electronically signed by: Regis Bains MD on 02/06/2025 19:46:46 Dictated By: Regis Bains MD Signed By: <Electronically signed by Regis Bains MD in [place]> 02/06/251946 Prescriptions: No Action lovastatin 20 mg tablet 20 mg PO DAILY Qty: 90 8RF levothyroxine 175 mcg tablet 175 mcg PO DAILY Qty: 90 4RF furosemide 20 mg tablet 20 mg PO DAILY 90 Days Qty: 90 2RF omeprazole 20 mg capsule,delayed release(DR/EC) 40 mg PO DAILY Qty: 180 0RF atenolol 50 mg tablet 50 mg PO DAILY Qty: 90 3RF Referrals: [facility] [Provider Group] ( 1 episode of brown stool status post colonoscopy) Stand Alone Forms: Work/School Release Interventions: ED Discharge Assessment Last Done: 02/06/25 22:10 Discharge Date/Time: 02/06/25 22:10 Print Language: Maldivian
[2025-02-06 17:55] LABS: MANUAL DIFF FLAG NO
[2025-02-06 18:00] LABS: Appearance Urine Clear; Color Urine Yellow; Glucose Urine UA Negative (Negative); Leukocyte Esterase Urine Negative (Negative); Nitrite Urine Negative (Negative); PH 6.5 (5.0-9.0); Specific Gravity - Urine <= 1.005 (1.005-1.025); Urine Blood Negative (Negative); Urine Ketones Negative (Negative); Urine Protein Negative (Neg-Trace)
[2025-02-06 18:18] LABS: Basophils Absolute Auto 0.1 X10*3/uL (0.0-0.2); Basophils Percent Auto 0.8 % (0-2); Eosinophils Absolute Auto 0.2 X10*3/uL (0.0-0.4); Eosinophils Percent Auto 2.5 % (0-4); Hematocrit 40.7 % (37.0-47.0); Hemoglobin 13.8 g/dl (12.0-16.0); Imm Gran Abs Auto 0.02 X10*3/uL (0.00-0.03); Imm Gran Pct Auto 0.3 % (0.0-0.4); Lymphocytes Absolute Auto 2.4 X10*3/uL (1.2-4.9); Mean Corpuscular HGB Conc 33.9 g/dl (31.0-35.0); Mean Corpuscular Hemoglobin 30.8 pg (27.0-33.0); Mean Corpuscular Volume 90.8 fL (80.0-98.0); Mean Platelet Volume 9.5 fL (9.4-12.3); Monocytes Absolute Auto 0.5 X10*3/uL (0.1-1.2); Neutrophils Absolute Auto 4.1 x10*3/uL (2.0-8.3); Neutrophils Percent Auto 56.4 % (45-73); Platelet Count 229 X10*3/uL (160-400); Red Blood Count 4.48 X10*6/uL (4.20-5.50); White Blood Count 7.3 X10*3/uL (4.8-10.8)
[2025-02-06 18:18] LABS: Alanine Aminotransferase 19 U/L (0-31); Albumin Level 4.2 g/dL (3.5-5.0); Alkaline Phosphatase 93 U/L (39-117); Anion Gap 14 (12-20); Aspartate Amino Transferase 35 U/L (5-31); Bilirubin Direct 0.1 mg/dL (0.0-0.5); Bilirubin Total 0.5 mg/dL (0.0-1.0); Blood Urea Nitrogen 9 mg/dL (9-16); Calcium 9.3 mg/dL (8.4-10.2); Carbon Dioxide 26 mmol/L (22-29); Chloride 107 mmol/L (96-108); Creatinine Clr Calc Pharmacy 91.8; Estimated Glomerular Filt Rate > 60; Glucose Random 100 mg/dL (60-115); Lipase 27 U/L (8-78); Potassium 4.2 mmol/L (3.3-5.1); Sodium 143 mmol/L (135-145); Total Protein 7.4 g/dL (6.5-8.0)
[2025-02-06 18:57] VITALS: BP 137/78; PULSE 118; RESP 20; TEMP 36.6; O2SAT 99
--- NOTE | 2025-02-06 19:04 | ED.GENADULT ---
HPI - General Adult General Chief complaint: GI Bleed Stated complaint: blood in stool Time Seen by Provider: 02/06/25 18:24 Source: patient Mode of arrival: ambulatory Limitations: no limitations History of Present Illness ED Provider: [place] Mora HPI narrative: 69-year-old female history of hypertension, high cholesterol, and hypothyroidism presents to the ED slight lower abdominal cramping with rectal bleeding described brown stool. patient states she had colonoscopy 2 days ago by her telecommunications field technician to evaluate diverticulosis. Patient states then today she woke up with some lower abdominal cramping and brown stool. Patient denies any black stool, bright red blood, or jelly maroon mucoid substance from rectum. Patient denies any fever and chills. Related Data Previous Rx's ?Medication ?Instructions ?Recorded lovastatin 20 mg tablet 20 mg PO DAILY #90 tabs 02/01/24 levothyroxine 175 mcg tablet 175 mcg PO DAILY #90 tabs 04/09/24 atenolol 50 mg tablet 50 mg PO DAILY #90 tabs 12/27/24 omeprazole 20 mg capsule,delayed 40 mg (2 x 20 mg) PO DAILY #180 12/27/24 release caps furosemide 20 mg tablet 20 mg PO DAILY 90 days #90 tabs 02/03/25 Allergies Allergy/AdvReac Type Severity Reaction Status Date / Time bee pollen Allergy Severe Swelling Verified 02/06/25 15:50 ciprofloxacin [From Cipro] Allergy Severe RASH-ITCHIN Verified 02/06/25 15:50 G Penicillins Allergy Intermediate Rash Verified 02/06/25 15:50 Sulfa (Sulfonamide Allergy Intermediate HIVES Verified 02/06/25 15:50 Antibiotics) [SULFA (SULFONAMIDE ANTIBIOTICS)] Review of Systems Review of Systems: lower abdominal cramping, brown stool Yes all other systems are reviewed and are negative PMFSH Past Medical History Medical History Kidney cysts Fatty liver Hiatal hernia Peptic ulcer Hx of simple renal cyst History of fatty infiltration of liver Elevated cholesterol Thyroid disease HTN (hypertension) Surgical History History of endoscopy History of colonoscopy History of tonsillectomy and adenoidectomy History of bilateral cataract extraction Family History Family History Father CVD (cardiovascular disease) Past heart attack Mother Breast cancer Bone metastases Brother Past heart attack Social History Social History Household Members: None Housing: Apartment Are you a primary customer care associate to a significant other at home: No Do you presently have visiting nurse or other home services: No Alcohol intake: never Patient Tobacco Use Status: Never used Tobacco Tobacco use type: Cigarette Smoked in Last 30 Days: No e-Cigarette/Vaping Use: Never Used Second Hand Smoke Exposure: No Use of substances other than those prescribed or required for medical reasons: No Advance Directives: No Advance Directives Information Provided: Yes Do you have a plan to hurt others: No Plan service: No Current occupational status: retired Cognitive needs: No Hearing needs: No Vision needs: No Physical Exam ED Vital Signs: Vital Signs - 24 hr 02/06/25 15:49 02/06/25 18:57 02/06/25 20:38 Temperature 98.0 F 97.9 F 97.7 F Pulse Rate 68 118 H 63 Respiratory Rate 16 20 14 Blood Pressure 107/72 137/78 109/62 Pulse Oximetry 97 99 93 Oxygen Delivery Method Room Air Room Air Room Air BMI result Body Mass Index 42.0 Const General: cooperative, healthy appearing, comfortable, no acute distress, well developed, alert, awake and Physically active Orientation/consciousness: patient oriented x3 HENMT Head: Yes normal to inspection, Yes No palpable skull fracture present, Yes normocephalic and Yes atraumatic Eyes General: appearance normal, both eyes and all related structures Neck Neck: Yes normal visual inspection, Yes full ROM, Yes no lymphadenopathy, Yes no meningeal signs, Yes trachea midline, Yes supple, No anterior neck swelling and No tender Chest Chest palpation & inspection: normal inspection of the chest and normal palpation of entire chest wall Resp Effort & Inspection: normal respiratory effort and able to speak in complete sentences Auscultation: clear to auscultation bilaterally Cardio Jugular venous distension: no JVD Heart sounds: S1 normal heart sound present and S2 normal heart sound present GI Other: REctal exam: negative for any black stool, melena, bright red blood, rectal pain, or fissures. Inspection: Yes normal to inspection Palpation (GI): Soft to palpation, not firm, nontender and no guarding General: Yes no CVA tenderness Back/Spine/Pelvis Back: no CVA tenderness and No back tenderness Skin General skin exam: no rashes or lesions noted, elasticity normal and turgor normal Neuro General: patient oriented x3, gait normal, tone normal, moves all extremities, Normal light touch and pain sensation, no meningeal signs, no focal motor deficits, CN's II-XI intact bilaterally and normal sensation to monofilament Extrem General: Yes normal to inspection, Yes full ROM and Yes capillary refill normal Psych Appearance: grossly normal, well kempt and not disheveled Medications Administered Discontinued Medications Generic Name Dose Route Start Last Admin Trade Name Freq PRN Reason Stop Dose Admin Sodium Chloride 1,000 mls @ 999 mls/hr 02/06/25 19:02 02/06/25 19:41 Ns IV 02/06/25 20:02 999 mls/hr .Q1H1M STA Administration Iohexol 100 ml 02/06/25 19:19 02/06/25 19:19 Iohexol 350 Mg/Ml 100 Ml Infus..Btl IV 02/06/25 19:20 100 ml ONCE ONE Administration Medical Decision Making Medical Decision Making MDM Narrative: 69-year-old female presents to ED for slight lower abdominal pain cramping and brown stool seatbelt was blood that began today status post colonoscopy 2 days ago. Patient presently has no abdominal tenderness and rectal exam negative for any profuse or active rectal bleeding. Patient well-appearing. Due to patient having colonoscopy 2 days ago now having lower abdominal pain was sent for CT scan to rule out perforation or toxic megacolon. 9:07pm: Patient occult stool came back negative. Abdominal CT scan came back negative for perforation or toxic megacolon. CT scan shows mild proximal enteritis. Patient stable on like to be discharged. Patient is denies any pain. Patient received IV fluids. Patient denies having any diarrhea just 1 episode of brown stool. not suspecting GI bleed, C diff enteritis, sepsis, peritonitis, UTI, pyelonephritis, kidney stones, or any other life threatening etiologies. Patient explained worrisome signs and informed to return to the ED immeidatley. Differential Diagnosis Differential Diagnoses: The differential diagnosis associated with the presentation includes (toxic megacolon, perforation) Admission/Observation Consideration of admission/observation: Escalation of care including admission/observation considered Lab Data MDM Lab Attestation statement: I reviewed the patient's lab results. 02/06/25 17:49 02/06/25 17:46 Labs: Lab Results 02/06/25 02/06/25 02/06/25 Range/Units 17:46 17:49 19:05 WBC 7.3 (4.8-10.8) X10*3/uL RBC 4.48 (4.20-5.50) X10*6/uL Hgb 13.8 (12.0-16.0) g/dl Hct 40.7 (37.0-47.0) % MCV 90.8 (80.0-98.0) fL MCH 30.8 (27.0-33.0) pg MCHC 33.9 (31.0-35.0) g/dl RDW 13.0 (11.0-16.0) % Plt Count 229 (160-400) X10*3/uL MPV 9.5 (9.4-12.3) fL Immature Gran % (Auto) 0.3 (0.0-0.4) % Neut % (Auto) 56.4 (45-73) % Lymph % (Auto) 33.0 (20-40) % [place] % (Auto) 7.0 (2-11) % Eos % (Auto) 2.5 (0-4) % Baso % (Auto) 0.8 (0-2) % Lymph # (Auto) 2.4 (1.2-4.9) X10*3/uL [place] # (Auto) 0.5 (0.1-1.2) X10*3/uL Eos # (Auto) 0.2 (0.0-0.4) X10*3/uL Baso # (Auto) 0.1 (0.0-0.2) X10*3/uL Abs Immat Gran (auto) 0.02 (0.00-0.03) X10*3/uL Absolute Neuts (auto) 4.1 (2.0-8.3) x10*3/uL Absolute Nucleated RBC 0.000 (0.0-0.012) X10*3/uL Nucleated RBC % (auto) 0.0 (0.0-0.2) /100WBC Sodium 143 (135-145) mmol/L Potassium 4.2 (3.3-5.1) mmol/L Chloride 107 (96-108) mmol/L Carbon Dioxide 26 (22-29) mmol/L Anion Gap 14 (12-20) BUN 9 (9-16) mg/dL Creatinine 0.81 (0.5-1.4) mg/dL Estim Creat Clear Calc 91.8 Estimated GFR > 60 Random Glucose 100 (60-115) mg/dL Calcium 9.3 (8.4-10.2) mg/dL Magnesium 2.0 (1.6-2.6) mg/dL Total Bilirubin 0.5 (0.0-1.0) mg/dL Direct Bilirubin 0.1 (0.0-0.5) mg/dL AST 35 H (5-31) U/L ALT 19 (0-31) U/L Alkaline Phosphatase 93 (39-117) U/L Total Protein 7.4 (6.5-8.0) g/dL Albumin 4.2 (3.5-5.0) g/dL Lipase 27 (8-78) U/L Urine Color Yellow Urine Appearance Clear Urine pH 6.5 (5.0-9.0) Ur Specific [place] <= 1.005 (1.005-1.025) Urine Protein Negative (Neg-Trace) mg/dL Urine Glucose (UA) Negative (Negative) mg/dL Urine Ketones Negative (Negative) mg/dL Urine Blood Negative (Negative) Urine Nitrite Negative (Negative) Ur Leukocyte Esterase Negative (Negative) Stool Occult Blood NEGATIVE (NEGATIVE) Independent Interpretation I performed an independent interpretation of an: CT Scan Radiology Impression Discussion of test interpretation with radiology: I have reviewed the radiologist's reading. Discharge Plan Discharge Clinical Impression: Enteritis Patient Disposition: Home, Self-Care Instructions: Enteritis (ED) Additional Instructions: Recommend follow-up with primary care provider. Recommend follow-up with telecommunications field technician who performed procedure. Return to the ED immediately for any abdominal pain, nausea, vomiting, fever, chills, profuse diarrhea, weakness, blood in stool, foul all of stool, or any other concerning symptoms. CT abdomen and pelvis with contrast Comparison: CT/SR - CT ABDOMEN PELVIS W IV CON - 09/24/24 16:39 EST Findings: Diffuse esophageal mural thickening, nonspecific. Atelectasis. Hepatomegaly with steatosis. Subtle lobulated contours along the inferior margins of the liver can be seen with cirrhosis, should be correlated clinically. Right mild left hydronephrosis, without obstructive calculus. Duodenal and proximal small bowel mural thickening can be seen with enteritis. No bowel obstruction. Scattered colonic diverticulosis without diverticulitis or colitis. Normal appendix. Osteopenia with diffuse multilevel spondylosis. Diffuse atheromatous plaque disease throughout the aorta and branch vessels, without aneurysmal dilatation. IMPRESSION: 1. Possible proximal enteritis. 2. Right mild left hydronephrosis, without obstructive calculus. This document has been electronically signed by: Regis Bains MD on 02/06/2025 19:46:46 Dictated By: Regis Bains MD Signed By: <Electronically signed by Regis Bains MD in [place]> 02/06/251946 Prescriptions: No Action lovastatin 20 mg tablet 20 mg PO DAILY Qty: 90 8RF levothyroxine 175 mcg tablet 175 mcg PO DAILY Qty: 90 4RF furosemide 20 mg tablet 20 mg PO DAILY 90 Days Qty: 90 2RF omeprazole 20 mg capsule,delayed release(DR/EC) 40 mg PO DAILY Qty: 180 0RF atenolol 50 mg tablet 50 mg PO DAILY Qty: 90 3RF Referrals: [facility] [Provider Group] ( 1 episode of brown stool status post colonoscopy) Stand Alone Forms: Work/School Release Interventions: ED Discharge Assessment Last Done: 02/06/25 22:10 Discharge Date/Time: 02/06/25 22:10 Print Language: Malaysian
[2025-02-06 19:15] LABS: OBS Int Ctl Valid YES; OBS1 NEGATIVE (NEGATIVE)
[2025-02-06] MEDS: iohexoL 350 MG/ML 100 ML INFUS..BTL IV (19:19)
[2025-02-06] MEDS: 0.9 % Sodium Chloride 1,000 ML 999 ML IV (19:41)
[2025-02-06 20:38] VITALS: BP 109/62; PULSE 63; RESP 14; TEMP 36.5; O2SAT 93
[2025-02-06 22:10] VITALS: BP 109/62; PULSE 63; RESP 14; TEMP 36.5; O2SAT 93
== END 2025-02-06 22:10 | disposition home or self-care (01) ==
PROVIDERS: Physician Assistant; Emergency Provider Emergency Medicine Emergency Medical Services; PCP Internal Medicine
DX: K52.9 Noninfective gastroenteritis and colitis, unspecified (principal); K92.1 Melena; Z79.899 Other long term (current) drug therapy
CPT/HCPCS: 36415; 74018; 74177; 80048; 80076; 81003; 82272; 83690; 83735; 85025; 99284; Q9967

== ENCOUNTER → 2025-02-06 15:53 | Outpatient (BNV) | payer MEDICARE, SELFPAY | PROVIDERS: Visit Provider Radiology Diagnostic Radiology | DX: N13.30 Unspecified hydronephrosis (principal); R16.0 Hepatomegaly, not elsewhere classified; R10.9 Unspecified abdominal pain | CPT/HCPCS: 74018; 74177 ==

== ENCOUNTER 2025-02-28 13:53 | Outpatient (AMB) | payer MEDICARE, SELFPAY ==
--- NOTE | 2025-02-28 14:03 | MHC.OFFVIS ---
Vital Signs 02/28/25 14:05 Height 5 ft 9 in Weight 284 lb 6.341 oz BMI 42.0 BP 108/55 L Blood Pressure Location Lt radial Position Sitting Pulse 72 Intake Visit Reasons: f/u colo Intake Note: Kirstin presents in the office as a follow up colonoscopy. CC: bloating and cramping in the stomach that is followed by diarrhea. Allergies bee pollen Allergy (Severe, Verified 02/28/25 14:06) Swelling ciprofloxacin [From Cipro] Allergy (Severe, Verified 02/28/25 14:06) RASH-ITCHING Penicillins Allergy (Intermediate, Verified 02/28/25 14:06) Rash Sulfa (Sulfonamide Antibiotics) [SULFA (SULFONAMIDE ANTIBIOTICS)] Allergy (Intermediate, Verified 02/28/25 14:06) HIVES HPI Comments Details: 68 y.o F with PMH of diverticulosis, hypothyroidism, who is here for change in bowel habits. Reports for almost a year now has episodes of crampy abd pain assoc with sudden onset of loose BM. Pain gets better with defecation. Onset is sometimes assoc with certain foods. No blood in stool. No unintentional weight loss. Happens 1-2 times a week. No night time sx. Has been hesitant to take scheduled imodium. Of note - pt also had a recent ER visit in Aug 2024 for what turned out to be Norovirus illness. Last colo 2021 (Dr Hopkins) Good prep. No polyps. Extensive L sided diverticulosis. 02/04/25: 1. Normal colon mucosa (biopsy) 2. Diverticulosis 3. Internal hemorrhoids Recommendations: - Follow path results. - Repeat colonoscopy in 10 years if patient in good health. Path: A. Colon, right, biopsy: Colonic mucosa with lymphoid aggregate and no specific change; no evidence of microscopic colitis. B. Colon, left, biopsy: Colonic mucosa with no specific change; no evidence of microscopic colitis 02/28/25: Here for follow up. Has persistent symptoms despite taking imodium 3 times a day. Has 3 BMs despite taking the antidiarrheals. This is with lower abd cramping as prev discussed. Bx reviewed- no evidence of IBD or microscopic colitis. No peridiverticular inflamamtion noted to suspect SCAD. SUDD not ruled out. [facility] Medical History Kidney cysts Fatty liver Hiatal hernia Peptic ulcer Hx of simple renal cyst History of fatty infiltration of liver Elevated cholesterol Thyroid disease HTN (hypertension) Surgical History History of endoscopy History of colonoscopy History of tonsillectomy and adenoidectomy History of bilateral cataract extraction Family History Father CVD (cardiovascular disease) Past heart attack Mother Breast cancer Bone metastases Brother Past heart attack Social History Household Members: None Housing: Apartment Are you a primary health care attorney to a significant other at home: No Do you presently have visiting nurse or other home services: No Alcohol intake: never Patient Tobacco Use Status: Never used Tobacco Tobacco use type: Cigarette e-Cigarette/Vaping Use: Never Used Second Hand Smoke Exposure: No service: No Current occupational status: retired Cognitive needs: No Hearing needs: No Vision needs: No Review of Systems Const All systems reviewed & are unremarkable except as noted in HPI and below Physical Exam Vital Signs: Last Vital Signs Pulse 72 02/28/25 14:05 BP 108/55 L 02/28/25 14:05 BMI result Body Mass Index 42.0 No apparent distress Nonicteric Abdomen soft, nondistended Alert and oriented x3, normal gait Assessment & Plan Assessment & Plan (1) Chronic diarrhea: Code(s): K52.9 - Noninfective gastroenteritis and colitis, unspecified Category: Medical (2) Left lower quadrant abdominal pain: Code(s): R10.32 - Left lower quadrant pain Category: Medical Plan Ddx include diverticular disease such as SIBO vs SUDD vs IBS vs food intolerance as such as CSID vs BAM. Plan: - Trial of rifaximin 550 BID which may hekp with both SIBO and IBS - If minimal response, next step will be to add cholestyamine - Have also requested pt to make a sx diary to see if correlation with carbs and if sucraid will be helpful although los likelihood given age of onset of sx Close follow up in 4-6 weeks Medications: New rifaximin 550 mg PO BID 28 tabs 0RF 14 days Coding Level of Care Code Est Pt Level 4 (28235) Diagnoses Chronic diarrhea K52.9 Left lower quadrant abdominal pain R10.32
[2025-02-28 14:05] VITALS: BP 108/55; PULSE 72; BMI 42.0
== END 2025-02-28 14:29 | disposition home or self-care (01) ==
LOC: HO.HGI 13:53
PROVIDERS: PCP Internal Medicine; Visit Provider Internal Medicine
DX: K52.9 Noninfective gastroenteritis and colitis, unspecified (principal); R10.32 Left lower quadrant pain
CPT/HCPCS: 99214

== ENCOUNTER → 2025-02-28 13:53 | Outpatient (BNVA) | payer MEDICARE, SELFPAY | PROVIDERS: PCP Internal Medicine; Visit Provider Internal Medicine | DX: K57.90 Diverticulosis of intestine, part unspecified, without perforation or abscess without bleeding (principal); K52.9 Noninfective gastroenteritis and colitis, unspecified; E03.9 Hypothyroidism, unspecified; R10.32 Left lower quadrant pain | CPT/HCPCS: 99212 ==

== ENCOUNTER 2025-04-23 09:02 | Outpatient (AMB) | payer MEDICARE, SELFPAY ==
--- NOTE | 2025-04-23 09:03 | A.OFFVIS_ITS ---
Vital Signs 04/23/25 09:04 Height 5 ft 9 in Weight 279 lb 15.793 oz BMI 41.3 BP 104/61 Blood Pressure Location Lt brachial Position Sitting Pulse 61 Intake Visit Reasons: 6 Wks f/u Intake Note: Kirstin presents in the office as a 6 week follow up. CC: She states she is still having cramps in the stomach and diarrhea - states it is everything she eats. Allergies bee pollen Allergy (Severe, Verified 04/23/25 09:05) Swelling ciprofloxacin (From Cipro) Allergy (Severe, Verified 04/23/25 09:05) RASH-ITCHING Penicillins Allergy (Intermediate, Verified 04/23/25 09:05) Rash Sulfa (Sulfonamide Antibiotics) (SULFA (SULFONAMIDE ANTIBIOTICS)) Allergy (Intermediate, Verified 04/23/25 09:05) HIVES HPI Comments Details: 68 y.o F with PMH of diverticulosis, hypothyroidism, who is here for change in bowel habits. Reports for almost a year now has episodes of crampy abd pain assoc with sudden onset of loose BM. Pain gets better with defecation. Onset is sometimes assoc with certain foods. No blood in stool. No unintentional weight loss. Happens 1-2 times a week. No night time sx. Has been hesitant to take scheduled imodium. Of note - pt also had a recent ER visit in Aug 2024 for what turned out to be Norovirus illness. Last colo 2021 (Dr Hopkins) Good prep. No polyps. Extensive L sided diverticulosis. 02/04/25: 1. Normal colon mucosa (biopsy) 2. Diverticulosis 3. Internal hemorrhoids Recommendations: - Follow path results. - Repeat colonoscopy in 10 years if patient in good health. Path: A. Colon, right, biopsy: Colonic mucosa with lymphoid aggregate and no specific change; no evidence of microscopic colitis. B. Colon, left, biopsy: Colonic mucosa with no specific change; no evidence of microscopic colitis 02/28/25: Here for follow up. Has persistent symptoms despite taking imodium 3 times a day. Has 3 BMs despite taking the antidiarrheals. This is with lower abd cramping as prev discussed. Bx reviewed- no evidence of IBD or microscopic colitis. No peridiverticular inflamamtion noted to suspect SCAD. SUDD not ruled out. 6/25/25: Here for follow up. No change in sx however pt also never took Rifaximin. Says pharmacy did not receive script, this will be resent today. Has not incorporated fiber in her diet. Also not jotting down food diary. Takes imodium 2-3 times a day for urgency. [facility] Medical History Kidney cysts Fatty liver Hiatal hernia Peptic ulcer Hx of simple renal cyst History of fatty infiltration of liver Elevated cholesterol Thyroid disease HTN (hypertension) Surgical History History of endoscopy History of colonoscopy History of tonsillectomy and adenoidectomy History of bilateral cataract extraction Family History Father CVD (cardiovascular disease) Past heart attack Mother Breast cancer Bone metastases Brother Past heart attack Social History Household Members: None Housing: Apartment Are you a primary critical care physician to a significant other at home: No Do you presently have visiting nurse or other home services: No Alcohol intake: never Patient Tobacco Use Status: Never used Tobacco Tobacco use type: Cigarette e-Cigarette/Vaping Use: Never Used Second Hand Smoke Exposure: No service: No Current occupational status: retired Cognitive needs: No Hearing needs: No Vision needs: No Review of Systems Const All systems reviewed & are unremarkable except as noted in HPI and below Physical Exam Vital Signs: Last Vital Signs Pulse 61 04/23/25 09:04 BP 104/61 04/23/25 09:04 BMI result Body Mass Index 41.3 No apparent distress Nonicteric Abdomen soft, nondistended Alert and oriented x3, normal gait Assessment & Plan Assessment & Plan (1) Chronic diarrhea: Code(s): K52.9 - Noninfective gastroenteritis and colitis, unspecified Category: Medical (2) Left lower quadrant abdominal pain: Code(s): R10.32 - Left lower quadrant pain Category: Medical Plan Ddx include diverticular disease such as SIBO vs SUDD vs IBS vs food intolerance as such as CSID vs BAM. Little progress from before as pt had missed instructions from last visit. Will resend Rifaximin. Also reminded her to maintain a symptom diary. Plan: - Trial of rifaximin 550 TID which may hekp with both SIBO and IBS - If minimal response, next step will be to add cholestyamine - Have also requested pt to make a sx diary to see if correlation with carbs and if sucraid will be helpful although los likelihood given age of onset of sx - 1 tsp-tbsp of fiber daily Follow up in 6 weeks Medications: Changed From rifaximin 550 mg PO BID 14 days 28 tabs 0RF To rifaximin 550 mg PO TID 42 tabs 0RF 14 days Refilled rifaximin 550 mg PO BID 14 days 28 tabs 0RF Coding Level of Care Code Est Pt Level 3 (59147) Diagnoses Chronic diarrhea K52.9 Left lower quadrant abdominal pain R10.32
[2025-04-23 09:04] VITALS: BP 104/61; PULSE 61; BMI 41.3
== END 2025-04-23 09:31 | disposition home or self-care (01) ==
LOC: HO.HGI 09:02
PROVIDERS: PCP Internal Medicine; Visit Provider Internal Medicine
DX: K52.9 Noninfective gastroenteritis and colitis, unspecified (principal); R10.32 Left lower quadrant pain
CPT/HCPCS: 99213

== ENCOUNTER → 2025-04-23 09:02 | Outpatient (BNVA) | payer MEDICARE, SELFPAY | PROVIDERS: PCP Internal Medicine; Visit Provider Internal Medicine | DX: R10.32 Left lower quadrant pain (principal); K52.9 Noninfective gastroenteritis and colitis, unspecified | CPT/HCPCS: 99212 ==

== ENCOUNTER 2025-06-03 07:42 | Outpatient (AMB) | payer MEDICARE, SELFPAY ==
--- NOTE | 2025-06-03 07:47 | MHC.PC.OV ---
Vital Signs 06/03/25 07:48 Height 5 ft 9 in Weight 280 lb BMI 41.3 BP 118/72 Blood Pressure Location Lt brachial Position Sitting Intake Visit Reasons: Transfer Care from Dr. 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 Accompanied by: Self / Same As Patient Allergies bee pollen Allergy (Severe, Verified 06/03/25 08:04) Swelling ciprofloxacin (From Cipro) Allergy (Severe, Verified 06/03/25 08:04) RASH-ITCHING Penicillins Allergy (Intermediate, Verified 06/03/25 08:04) Rash Sulfa (Sulfonamide Antibiotics) (SULFA (SULFONAMIDE ANTIBIOTICS)) Allergy (Intermediate, Verified 06/03/25 08:04) HIVES Medication List - Last Reconciled 06/03/25 by Cheryl Donahue MD atenolol 50 mg PO DAILY furosemide 20 mg PO DAILY 90 days levothyroxine 175 mcg PO DAILY lovastatin 20 mg PO DAILY metronidazole 250 mg PO TID 10 days omeprazole 40 mg (2 x 20 mg) PO DAILY rifaximin 550 mg PO TID 14 days Tobacco use date assessed: 12/27/24 Fall risk assessment: No Falls in past year Last assessed Fall Risk: 06/03/25 Dental Screening Dental Screen Date: 06/03/25 Did you have a dental visit in the last 12 months?: Yes Did you have a dental problem in the last 6 months where you did not have access to dental care?: No Was dental information given to patient?: Patient has dentist HPI HPI Comments History of Present Illness Details The patient is a 69-year-old female presenting with the need to transfer care from a retiring doctor. She has a history of hypertension, which is well controlled with atenolol 50 mg once daily. Additionally, she is obese with a BMI of 41.3 and has been advised to engage in regular exercise, which she complies with by walking daily. The patient has hypothyroidism managed with levothyroxine 175 mcg daily, with her last thyroid function test in November showing normal results. She also takes lovastatin 20 mg for hypercholesterolemia and omeprazole for gastroesophageal reflux disease. She reports chronic diarrhea persisting for over three months, which does not disturb her sleep at night. A colonoscopy performed in January was normal, revealing only hemorrhoids and diverticulosis. The patient denies any chest pain or dyspnea and reports no use of tobacco or alcohol. She is not experiencing depression. Preventative care measures include an updated Td vaccine, as her last was administered in 2007, and she is current with her mammograms. [facility] Medical History Kidney cysts Fatty liver Hiatal hernia Peptic ulcer Hx of simple renal cyst History of fatty infiltration of liver Elevated cholesterol Thyroid disease HTN (hypertension) Surgical History History of endoscopy History of colonoscopy History of tonsillectomy and adenoidectomy History of bilateral cataract extraction Family History Father CVD (cardiovascular disease) Past heart attack Mother Breast cancer Bone metastases Brother Past heart attack Social History Household Members: None Housing: Apartment Are you a primary career resource specialist to a significant other at home: No Do you presently have visiting nurse or other home services: No Alcohol intake: never Patient Tobacco Use Status: Never used Tobacco e-Cigarette/Vaping Use: Never Used Second Hand Smoke Exposure: No service: No Current occupational status: retired Cognitive needs: No Hearing needs: No Vision needs: No Questionnaire PHQ-9 Over the last 2 weeks, how often have you been bothered by any of the following problems? 1. Little interest or pleasure in doing things: several days 2. Feeling down, depressed, or hopeless: not at all 3. Trouble falling or staying asleep, or sleeping too much: not at all 4. Feeling tired or having little energy: not at all 5. Poor appetite or overeating: not at all 6. Feeling bad about yourself - or that you are a failure or have let yourself or your family down: not at all 7. Trouble concentrating on things, such as reading the newspaper or watching television: not at all 8. Moving or speaking so slowly that other people could have noticed. Or the opposite - being so fidgety or restless that you have been moving around a lot more than usual: not at all 9. Thoughts that you would be better off or of hurting yourself in some way: not at all Total score: 1 Depression Screening Interpretation: Negative Depression Screening Done: Yes 22083 - PHQ-9 Billing: Yes Source: Developed by Drs. Nura Ash, Berto Sandy and colleagues, with an educational jermaine from [employer]. Thrive Questionnaire Date Thrive assessed: 12/27/24 I am a: Patient What is your living situation today?: I have a steady place to live Within the past 12 months, did the food you bought not last and you didn't have the money to get more?: Never true Within the past 12 months, did you worry whether your food would run out before you got money to buy more?: Never true Do you have trouble paying for medicines?: No Do you have trouble getting transportation to medical appointments?: No Do you have trouble paying your heating and electricity bill?: No Do you have trouble taking care of your child, family member or friend?: No Do you have trouble with day-to-day activities such as bathing, preparing meals, shopping, managing finances, etc.?: No Are you currently unemployed and looking for a job?: No Are you interested in more education?: No Please select the resources that you would like help with: None Currently or been in a relationship where the following occur: No concerns reported THRIVE Score: 0 AUDIT C Alcohol Use Questionnaire (AUDIT-C) 1. How often do you have a drink containing alcohol?: Never Total Score: 0 Score Reviewed/Action Taken: No SOWMYA-7 AMB Questionnaire SOWMYA-7 Date SOWMYA - 7 assessed: 12/27/24 Feeling nervous, anxious, or on edge: 0 = Not at all Not being able to stop or control worryin = Not at all Worrying too much about different things: 0 = Not at all Trouble relaxin = Not at all Being so restless that it is hard to sit still: 0 = Not at all Becoming easily annoyed or irritable: 0 = Not at all Feeling afraid as if something awful might happen: 0 = Not at all Total SOWMYA-7 score (0-4 normal; 5-9 mild; 10-14 moderate; 15-21 severe): 0 Source: Developed by Shelly Colbert Kurt Kroenke and colleagues, with an educational jermaine from [employer]. SOWMYA-7 Assessment Billing SOWMYA-7 Assessment Tool: SOWMYA-7 Assessment 21358 Review of Systems Const All systems reviewed & are unremarkable except as noted in HPI and below Card Denies chest pain at rest, Denies chest pain with activity, Denies edema, Denies irregular heart rhythm, Denies claudication, Denies dyspnea, Denies dyspnea on exertion, Denies orthopnea, Denies paroxysmal nocturnal dyspnea and Denies slow heart rate Resp Denies cough, Denies dyspnea and Denies dyspnea on exertion GI Denies abdominal pain, Denies change in bowel habits, Denies excessive flatus, Reports diarrhea, Denies nausea and Denies vomiting Physical exam (Primary Care) Vital Signs: Last Vital Signs BP 118/72 06/03/25 07:48 BMI result Body Mass Index 41.3 Tobacco/Smoking Status: Tobacco use Status Tobacco use date assessed 12/27/24 06/03/25 07:52 Patient Tobacco Use Status Never used Tobacco 06/03/25 07:52 Tobacco use type 06/03/25 08:03 e-Cigarette/Vaping Use Never Used 06/03/25 07:52 PHQ-9: PHQ-9 Score PHQ-9: Total score 1 06/03/25 08:04 Depression Screening Interpretation: Negative Thrive Assessment: Date of Thrive Assessment Date Thrive assessed 12/27/24 06/03/25 07:52 Currently or been in a relationship where the following occur: No concerns reported Resp Effort & Inspection: normal respiratory effort Auscultation: clear to auscultation bilaterally Cardio Jugular venous distension: no JVD Rate: regular rate Rhythm: regular rhythm Heart sounds: S1 normal heart sound present and S2 normal heart sound present Extrem General: Yes full ROM Immunizations Tenivac (PF) 5 Lf unit-2 Lf unit/0.5 mL intramuscular syringe Performing Provider: Cheryl Donahue MD [facility] Administered by: AMI Casey on 06/03/25 08:22 Dose Route Admin Location Dispensed Lot Number Expiration Date [facility] Alley Cleaner 0.5 mL IM Left Deltoid 0.5 mL [id number] 01/28/27 [id number] [employer] Total Dispensed Waste 0.5 mL 0 % VIS Given Date VIS Provided VIS Publication Date 06/03/25 Single Vaccine 21 Eligibility Eligibility Date Funding Source Not [facility] Eligible 06/03/25 Private Coding Level of Care Code Est Pt Level 4 (00930) Complex EM visit Add On G2211 Diagnoses Essential hypertension I10 Morbid obesity E66.01 Acquired hypothyroidism E03.9 Hypothyroidism type: acquired Chronic diarrhea K52.9 Chronic GERD K21.9 Pure hypercholesterolemia E78.00 Additional Codes PHQ-9 - 92191 - PHQ-9 Billing: Yes ([id number]) SOWMYA-7 Assessment Billing - SOWMYA-7 Assessment Tool: SOWMYA-7 Assessment 92006 ([id number]) Time Spent (min) 22 Assessment & Plan Assessment & Plan (1) Essential hypertension: Code(s): I10 - Essential (primary) hypertension Category: Medical (2) Morbid obesity: Code(s): E66.01 - Morbid (severe) obesity due to excess calories Category: Medical (3) Hypothyroidism: Code(s): E03.9 - Hypothyroidism, unspecified Category: Medical Qualifiers: Hypothyroidism type: acquired Qualified Code(s): E03.9 - Hypothyroidism, unspecified (4) Chronic diarrhea: Code(s): K52.9 - Noninfective gastroenteritis and colitis, unspecified Category: Medical (5) Chronic GERD: Code(s): K21.9 - Gastro-esophageal reflux disease without esophagitis Category: Medical (6) Pure hypercholesterolemia: Code(s): E78.00 - Pure hypercholesterolemia, unspecified Category: Medical Plan The patient will continue her current antihypertensive regimen with atenolol 50 mg daily, as her blood pressure is well controlled. For obesity, she is encouraged to maintain her daily walking routine and consider dietary modifications to aid weight management. Her hypothyroidism will be monitored with regular thyroid function tests, given her stable condition on levothyroxine 175 mcg daily. Hypercholesterolemia management will continue with lovastatin 20 mg, and cholesterol levels will be re-evaluated periodically. For chronic diarrhea, further evaluation may be considered if symptoms persist, despite the normal colonoscopy findings. Preventative care includes updating her Td vaccine today and ensuring she remains current with mammograms. Orders: Orders Td Immunization Today Z23 - Encounter for immunization Lipid Panel Today E78.5 - Hyperlipidemia, unspecified Thyroid Stimulating Hormone Today E03.9 - Hypothyroidism, unspecified
[2025-06-03 07:48] VITALS: BP 118/72; BMI 41.3
== END 2025-06-03 08:21 | disposition home or self-care (01) ==
LOC: HO.HMCH 07:43
PROVIDERS: PCP Internal Medicine; Visit Provider Internal Medicine
DX: I10 Essential (primary) hypertension (principal); E66.01 Morbid (severe) obesity due to excess calories; E03.9 Hypothyroidism, unspecified; Z68.41 Body mass index [BMI] 40.0-44.9, adult; K52.9 Noninfective gastroenteritis and colitis, unspecified; K21.9 Gastro-esophageal reflux disease without esophagitis; E78.00 Pure hypercholesterolemia, unspecified; Z23 Encounter for immunization

== ENCOUNTER → 2025-06-03 07:42 | Outpatient (BNVA) | payer MEDICARE, SELFPAY | PROVIDERS: PCP Internal Medicine; Visit Provider Internal Medicine | DX: Z23 Encounter for immunization (principal); I10 Essential (primary) hypertension; E03.9 Hypothyroidism, unspecified; K21.9 Gastro-esophageal reflux disease without esophagitis; K52.9 Noninfective gastroenteritis and colitis, unspecified; E78.00 Pure hypercholesterolemia, unspecified; E66.01 Morbid (severe) obesity due to excess calories; Z68.41 Body mass index [BMI] 40.0-44.9, adult; Z71.3 Dietary counseling and surveillance | CPT/HCPCS: 90471; 90714; 96127; 99212 ==

== ENCOUNTER 2025-06-04 05:58 | Outpatient (REF) | payer MEDICARE, SELFPAY ==
[2025-06-04 08:17] LABS: Cholesterol 213 mg/dL (<200); HDL Cholesterol 40 mg/dL (>40); Triglycerides 165 mg/dL (<150)
[2025-06-04 08:35] LABS: Thyroid Stimulating Hormone 2.13 uIU/mL (0.32-4.0)
== END 2025-06-04 05:59 | disposition home or self-care (01) ==
LOC: HO.LAB 05:58
PROVIDERS: PCP Internal Medicine; Visit Provider Internal Medicine
DX: E03.9 Hypothyroidism, unspecified (principal); E78.5 Hyperlipidemia, unspecified
CPT/HCPCS: 36415; 80061; 84443

== ENCOUNTER 2025-06-06 12:17 | Emergency (ER) | payer MEDICARE, SELFPAY ==
[2025-06-06] VITALS (7 sets, daily range): BP systolic 101–167; BP diastolic 54–75; PULSE 53–69; RESP 11–18; TEMP 36.2–36.8; O2SAT 97–98; BMI 40.2; BMI 38.9
--- NOTE | ~2025-06-06 | CT_ITS ---
EXAMINATION: CT HEAD WITHOUT IV CONTRAST STROKE HISTORY: Blurry vision / loss of vision. TECHNIQUE: Unenhanced helical CT of the head was performed per standard departmental protocol. Coronal and sagittal reformats of the head were also evaluated. One or more of the following techniques was used for dose reduction: Automated exposure control, adjustment of the mA and/or kV according to patient size, use of iterative reconstruction technique. DLP: 756 mGy-cm COMPARISON: There are no prior studies available for comparison. FINDINGS: BRAIN: A few scattered periventricular and subcortical white matter hypodensities are noted which are nonspecific but often seen in the setting of small vessel ischemic disease. The brain parenchyma is otherwise unremarkable. There is normal whitlock/white differentiation. The ventricular system is normal in size and configuration. There is no mass effect or midline shift. No intra- or extra-axial fluid collections are identified. SINUSES: The visualized paranasal sinuses are clear. The mastoid air cells and middle ear cavities are well pneumatized. ORBITS: The visualized orbits are unremarkable. BONES/SOFT TISSUES: The extracranial soft tissues are unremarkable. The calvarium is intact. No suspicious lytic or sclerotic lesions. CT/CT head for STROKE IMPRESSION: No acute intracranial abnormality. These findings were discussed with Stephanie Oneal in the emergency room on 06/06/2025 at 12:50 PM. Electronically signed by: Nura Dodson MD 06/06/2025 12:48 PM EDT
--- NOTE | ~2025-06-06 | CT_ITS ---
EXAMINATION: CTA NECK WITH CONTRAST (STROKE) CTA BRAIN WITH CONTRAST (STROKE) CLINICAL INFORMATION: Dizziness. Blurred vision, Right-sided. Assess for major vessel occlusion. Please call report. COMPARISON: Correlated to CT head same day. TECHNIQUE: CTA of the head and neck was performed in the axial plane from the mediastinum to the skull vertex using 70 mL Omnipaque 350 intravenous contrast. Additional reformatted multiplanar images including maximum intensity projection MIP images are generated on the CT workstation. This CT examination was performed using dose optimization techniques as appropriate, variously including the following: *Automated exposure control *Adjustment of mA and/or kV according to patient size (this includes techniques or standardized protocols for targeted exams where dose is matched to indication/reason for exam; i.e. extremities or head) *Use of iterative reconstruction technique DLP: 681 mGy centimeter. FINDINGS: The degree of stenosis determined by criteria similar to NASCET. Chest CTA: No aneurysm or dissection. Focal calcified plaque aortic arch. Neck CTA: Right CCA: Normal patency. No focal stenosis. No intimal flap. Tortuosity in the proximal segment. Right ICA: Calcified plaque. No focal stenosis. Normal patency. No intimal flap. Tortuosity. Left CCA: Normal patency. No focal stenosis. No intimal flap. Tortuosity in the proximal segment. Left ICA: Calcified plaque. No focal stenosis. Normal patency. No intimal flap. Tortuosity in the proximal to mid segments. V1/V2 segments: Origin from the subclavian artery on the right and from the aortic arch on the left between the left CCA and the left subclavian artery. Normal patency. No focal stenosis. No intimal flap. Tortuosity. Codominant. . Brain CTA: Anterior cerebral circulation: ICAs: Normal patency. No focal stenosis. No abrupt cut off. Small plaques supraclinoid segments, bilaterally. MCA's: Normal patency. No focal stenosis. No abrupt cut off. Bifurcation/trifurcation demonstrated no contour irregularity. ACAs: Normal patency. No focal stenosis. No abrupt cut off. Anterior communicating arteries are patent without gross irregularity. Ophthalmic arteries are patent with decreased caliber and irregularity on the left ophthalmic artery. Right posterior communicating artery is patent. Posterior cerebral circulation: V3/V4 segments: Normal patency. No focal stenosis. No intimal flap. Right posterior inferior cerebellar artery is patent without gross irregularity. Left posterior inferior cerebral arteries patent without irregularity. Basilar artery is patent without intimal flap or focal stenosis. Superior cerebellar arteries are patent without gross irregularity. environmental education specialist: No focal stenosis. Normal patency. No abrupt cut off. Ancillary findings: Main cerebral venous sinuses are patent without intraluminal filling defects. Cervical spondylosis C5-6. Bilateral nonspecific prominent cervical lymph nodes. Status post intraocular lens surgery, bilaterally. CT/CT angio head neck IMPRESSION: Calcified plaques both ICAs without high degree stenosis. No main cerebral artery occlusion or embolus. No dissection. No gross aneurysm. 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 Small calcified plaques supracavernous segments both ICAs. This critical test result is communicated to: Dr. Neda Pierre via [employer] at 3:33 PM on June 06, 2025. Electronically signed by: Baldomero Callahan MD 06/06/2025 03:40 PM EDT
--- NOTE | 2025-06-06 12:21 | ED.GENADULT ---
HPI - General Adult General Chief complaint: Stroke Stated complaint: ? Stroke Time Seen by Provider: 06/06/25 12:28 Source: patient and old records reviewed Mode of arrival: ambulatory Limitations: no limitations History of Present Illness ED Provider: KAYODE LANG narrative: 69 yo female with HTN, HLD, obesity, hypothyroidism, tremor here with c/o around 3am developed dizziness, headaches, blurred vision in both eyes, n/v, also chest tightness but no recent URI fevers/travel or procedures. She had no focal numbness or weakness. She states she feels off balance when she walks. She notes the dizziness is worse with laying flat as well. She states she has no hx of this in past. She has no diarrhea, no urinary symptoms. She denies abdominal pain MD complaint: dizziness, chest pain, blurry vision Onset (ago): hour(s) (3am today) Location: head and chest Radiation: non-radiation Severity: moderate Quality: other (tight) Pain Consistency: constant Relieving factors: none Exacerbating factors: rest Associated symptoms: chest pain and other (n/v) Treatments prior to arrival: none Related Data Previous Rx's ?Medication ?Instructions ?Recorded levothyroxine 175 mcg tablet 175 mcg PO DAILY #90 tabs 04/09/24 omeprazole 20 mg capsule,delayed 40 mg (2 x 20 mg) PO DAILY #180 12/27/24 release caps furosemide 20 mg tablet 20 mg PO DAILY 90 days #90 tabs 02/03/25 atenolol 50 mg tablet 50 mg PO DAILY #90 tabs 03/12/25 rifaximin 550 mg tablet 550 mg PO TID 14 days #42 tabs 04/23/25 metronidazole 250 mg tablet 250 mg PO TID 10 days #30 tabs 04/28/25 lovastatin 20 mg tablet 20 mg PO DAILY #90 tabs 04/29/25 Allergies Allergy/AdvReac Type Severity Reaction Status Date / Time bee pollen Allergy Severe Swelling Verified 06/06/25 12:38 ciprofloxacin (From Cipro) Allergy Severe RASH-ITCHIN Verified 06/06/25 12:38 G Penicillins Allergy Intermediate Rash Verified 06/06/25 12:38 Sulfa (Sulfonamide Allergy Intermediate HIVES Verified 06/06/25 12:38 Antibiotics) (SULFA (SULFONAMIDE ANTIBIOTICS)) Review of Systems Review of Systems: Constitutional : No Fever, No Chills, No Fatigue ENT/Mouth : No sore throat, No Rhinorrhea Eyes: No Eye Pain, No Swelling, No Redness, pos blurred vision Cardiovascular : pos Chest Pain, pos SOB, No Dyspnea on Exertion Respiratory : No Cough, No Sputum Gastrointestinal : No Nausea, No Vomiting, No Diarrhea, No abdominal Pain Genitourinary : No Dysuria, No Urinary Frequency, No Hematuria, Musculoskeletal : No joint pain, No Myalgias, No Joint Swelling Skin : No Skin Lesions, No rash Neuro : No Weakness, No Numbness, pos Dizziness, no Headache All other systems reviewed and are negative [facility] Past Medical History Attestation statement: The following information was validated with the patient. Source: old records reviewed Medical History Kidney cysts Fatty liver Hiatal hernia Peptic ulcer Hx of simple renal cyst History of fatty infiltration of liver Elevated cholesterol Thyroid disease HTN (hypertension) Surgical History History of endoscopy History of colonoscopy History of tonsillectomy and adenoidectomy History of bilateral cataract extraction Family History Family History Father CVD (cardiovascular disease) Past heart attack Mother Breast cancer Bone metastases Brother Past heart attack Social History Social History Household Members: None Housing: Apartment Are you a primary transitions rn care coordinator to a significant other at home: No Do you presently have visiting nurse or other home services: No Alcohol intake: never Patient Tobacco Use Status: Never used Tobacco Smoked in Last 30 Days: No e-Cigarette/Vaping Use: Never Used Second Hand Smoke Exposure: No Use of substances other than those prescribed or required for medical reasons: No Advance Directives: No Advance Directives Information Provided: Yes service: No Current occupational status: retired Cognitive needs: No Hearing needs: No Vision needs: No Physical Exam ED Vital Signs: Vital Signs - 24 hr 06/06/25 12:19 06/06/25 13:18 06/06/25 13:26 Temperature 97.1 F 98.2 F Pulse Rate 56 55 53 Respiratory Rate 18 11 L Blood Pressure 167/75 H 114/58 L 125/54 L Pulse Oximetry 97 98 Oxygen Delivery Method Room Air Room Air 06/06/25 13:43 06/06/25 13:43 06/06/25 16:28 Temperature Pulse Rate 60 69 58 Respiratory Rate 16 Blood Pressure 127/59 L 101/70 119/56 L Pulse Oximetry 98 Oxygen Delivery Method Room Air 06/06/25 18:28 Temperature Pulse Rate 60 Respiratory Rate 16 Blood Pressure 109/56 L Pulse Oximetry 98 Oxygen Delivery Method Room Air BMI result Body Mass Index 38.9 Appearance: Alert. Oriented X3. No acute distress. Eyes: Pupils equal, round and reactive to light. states she has blurry vision of both eyes no improvement with monocular testing - symmetric ENT: Pharynx normal. Neck: Normal inspection. Neck supple. CVS: Normal heart rate and rhythm. Pulses normal. Respiratory: No respiratory distress. Breath sounds normal. Abdomen: Soft and nontender. Skin: Skin warm and dry. Normal skin color. Normal skin turgor. Extremities: No lower extremity edema. tremors of both UE - chronic Neuro: Oriented X 3. No motor deficit. No sensory deficit. CN2-12 intact NIH Stroke Scale Internal: Initial- Upon Arrival Level of Consciousness: Alert Level of Consciousness Questions: Answers both questions correctly Level of Consciousness Commands: Performs both tasks correctly Best Gaze: Normal Visual: No visual loss Facial Palsy: Normal Motor Arm (Right): No drift Motor Arm (Left): No drift Motor Leg (Right): No drift Motor Leg (Left): No drift Limb Ataxia: Absent Sensory: Normal Best Language: No aphasia Dysarthia: Normal Extinction and Inattention: No abnormality Score: 0 Course Course Course Narrative: RME performed by Stephanie Oneal PA-C. Patient is a 69 year old assigned female at presenting to the emergency department with head throbbing, blurry vision, and chest pain. Patient states at 0300 she started having blurry vision with a throbbing headache and it has continued as well as chest pain. Detailed physical exam and review of systems are deferred to the correctional classification counselor. EKG, labs, imaging, swabs ordered. smasher made aware. Reevaluation(s) Reevaluation #1: Patient is feeling improved in his requesting discharge home. She is ambulatory in the emergency department with clear speech and a steady gait. No focal neurologic deficits on my exam. Using shared decision making, plan for discharge home to follow-up with primary care and/or specialist. Patient understands and agrees with plan for discharge. Discharged home in stable condition. Time: 18:44 Medications Administered Discontinued Medications Generic Name Dose Route Start Last Admin Trade Name Cecelia PRN Reason Stop Dose Admin Dextrose 12.5 gm 06/06/25 12:29 06/06/25 12:32 Dextrose 50 % 25 Gm/50 Ml Syringe IVPUSH 06/06/25 12:30 12.5 gm ONCE ONE Administration Acetaminophen 1,000 mg in 100 mls @ 400 mls/hr 06/06/25 13:38 06/06/25 15:17 Ofirmev IV 06/06/25 13:52 Infused ONCE ONE Infusion Sodium Chloride 500 mls @ 500 mls/hr 06/06/25 13:44 06/06/25 15:17 Ns IV 06/06/25 14:43 Infused .Q1H ONE Infusion Iohexol 100 ml 06/06/25 15:21 06/06/25 15:21 Iohexol 350 Mg/Ml 100 Ml Infus..Btl IV 06/06/25 15:22 70 ml ONCE ONE Administration Meclizine HCl 25 mg 06/06/25 13:38 06/06/25 13:46 Meclizine Hcl 25 Mg Tablet PO 06/06/25 13:39 25 mg ONCE ONE Administration Ondansetron HCl 4 mg 06/06/25 13:44 06/06/25 13:46 Ondansetron Hcl 4 Mg/2 Ml Vial IVPUSH 06/06/25 13:45 4 mg ONCE ONE Administration Medical Decision Making Medical Decision Making MDM Narrative: 69 yo female with HTN, HLD, obesity, hypothyroidism, tremor here with c/o onset of dizziness where she feels off balance and then had blurry vision in both eyes, she also has chest pain - her NIH is 0 low susp for LVO and she is presenting 9 hours after onset not a candidate for TNK - she will need trop x 1, EKG unchanged, ddimer given chest pain - if negative will obtain basic labs, CT stroke protocol, ddimer. Possible atypical ACS, VTE low prob, TIA/stroke/vertigo/complex migraine Differential Diagnosis Differential Diagnoses: The differential diagnosis associated with the presentation includes atypical ACS, TIA/stroke doubt LVO, VTE given obesity/stroke/vertigo/complex migraine Admission/Observation Consideration of admission/observation: Escalation of care including admission/observation considered Lab Data MDM Lab Attestation statement: I reviewed the patient's lab results. 06/06/25 12:49 06/06/25 12:49 Labs: Lab Results 06/06/25 06/06/25 06/06/25 Range/Units 12:28 12:49 13:28 WBC 8.2 (4.8-10.8) X10*3/uL RBC 4.22 (4.20-5.50) X10*6/uL Hgb 13.3 (12.0-16.0) g/dl Hct 38.8 (37.0-47.0) % MCV 91.9 (80.0-98.0) fL MCH 31.5 (27.0-33.0) pg MCHC 34.3 (31.0-35.0) g/dl RDW 13.1 (11.0-16.0) % Plt Count 226 (160-400) X10*3/uL MPV 9.7 (9.4-12.3) fL Immature Gran % (Auto) 0.4 (0.0-0.4) % Neut % (Auto) 50.7 (45-73) % Lymph % (Auto) 38.4 (20-40) % [place] % (Auto) 7.2 (2-11) % Eos % (Auto) 2.7 (0-4) % Baso % (Auto) 0.6 (0-2) % Lymph # (Auto) 3.2 (1.2-4.9) X10*3/uL [place] # (Auto) 0.6 (0.1-1.2) X10*3/uL Eos # (Auto) 0.2 (0.0-0.4) X10*3/uL Baso # (Auto) 0.1 (0.0-0.2) X10*3/uL Abs Immat Gran (auto) 0.03 (0.00-0.03) X10*3/uL Absolute Neuts (auto) 4.2 (2.0-8.3) x10*3/uL Absolute Nucleated RBC 0.000 (0.0-0.012) X10*3/uL Nucleated RBC % (auto) 0.0 (0.0-0.2) /100WBC PT 11.0 (10.9-12.4) SEC INR 1.0 (0.9-1.1) APTT 29.8 (26.7-34.1) SEC D-Dimer High Sensitivty < 150 NG/ML Sodium 143 (135-145) mmol/L Potassium 3.8 (3.3-5.1) mmol/L Chloride 108 (96-108) mmol/L Carbon Dioxide 25 (22-29) mmol/L Anion Gap 14 (12-20) BUN 16 (9-16) mg/dL Creatinine 0.87 (0.5-1.4) mg/dL Estim Creat Clear Calc 84.5 Estimated GFR > 60 POC Glucose 67 95 (60-115) mg/dL Random Glucose 92 (60-115) mg/dL Calcium 9.2 (8.4-10.2) mg/dL Troponin I High Sens < 2.7 (<3.5-17.0) ng/L Triglycerides 231 H (<150) mg/dL Cholesterol 227 H (<200) mg/dL LDL Cholesterol, Calc 142 H (<100) mg/dL HDL Cholesterol 39 L (>40) mg/dL Urine Color Urine Appearance Urine pH (5.0-9.0) Ur Specific [place] (1.005-1.025) Urine Protein (Neg-Trace) mg/dL Urine Glucose (UA) (Negative) mg/dL Urine Ketones (Negative) mg/dL Urine Blood (Negative) Urine Nitrite (Negative) Ur Leukocyte Esterase (Negative) Urine RBC (0-2) /HPF Urine WBC (0-5) /HPF Ur Squamous Epith Cells (0-2) /HPF Urine Bacteria (None Seen) Hyaline Casts (0-2) /LPF 06/06/25 Range/Units 14:22 WBC (4.8-10.8) X10*3/uL RBC (4.20-5.50) X10*6/uL Hgb (12.0-16.0) g/dl Hct (37.0-47.0) % MCV (80.0-98.0) fL MCH (27.0-33.0) pg MCHC (31.0-35.0) g/dl RDW (11.0-16.0) % Plt Count (160-400) X10*3/uL MPV (9.4-12.3) fL Immature Gran % (Auto) (0.0-0.4) % Neut % (Auto) (45-73) % Lymph % (Auto) (20-40) % [place] % (Auto) (2-11) % Eos % (Auto) (0-4) % Baso % (Auto) (0-2) % Lymph # (Auto) (1.2-4.9) X10*3/uL [place] # (Auto) (0.1-1.2) X10*3/uL Eos # (Auto) (0.0-0.4) X10*3/uL Baso # (Auto) (0.0-0.2) X10*3/uL Abs Immat Gran (auto) (0.00-0.03) X10*3/uL Absolute Neuts (auto) (2.0-8.3) x10*3/uL Absolute Nucleated RBC (0.0-0.012) X10*3/uL Nucleated RBC % (auto) (0.0-0.2) /100WBC PT (10.9-12.4) SEC INR (0.9-1.1) APTT (26.7-34.1) SEC D-Dimer High Sensitivty NG/ML Sodium (135-145) mmol/L Potassium (3.3-5.1) mmol/L Chloride (96-108) mmol/L Carbon Dioxide (22-29) mmol/L Anion Gap (12-20) BUN (9-16) mg/dL Creatinine (0.5-1.4) mg/dL Estim Creat Clear Calc Estimated GFR POC Glucose (60-115) mg/dL Random Glucose (60-115) mg/dL Calcium (8.4-10.2) mg/dL Troponin I High Sens (<3.5-17.0) ng/L Triglycerides (<150) mg/dL Cholesterol (<200) mg/dL LDL Cholesterol, Calc (<100) mg/dL HDL Cholesterol (>40) mg/dL Urine Color Yellow Urine Appearance Clear Urine pH 6.0 (5.0-9.0) Ur Specific [place] 1.010 (1.005-1.025) Urine Protein Negative (Neg-Trace) mg/dL Urine Glucose (UA) Negative (Negative) mg/dL Urine Ketones Negative (Negative) mg/dL Urine Blood Negative (Negative) Urine Nitrite Negative (Negative) Ur Leukocyte Esterase Negative (Negative) Urine RBC 0-2 (0-2) /HPF Urine WBC 0-5 (0-5) /HPF Ur Squamous Epith Cells 0-2 (0-2) /HPF Urine Bacteria None Seen (None Seen) Hyaline Casts 0-2 (0-2) /LPF Independent Interpretation I performed an independent interpretation of an: EKG and CT Scan (no ICH) Interpretation: Rate: 48 Rhythm: sinus bradycardia [place]: left Normal P waves. Normal PAOLA. NSIVCD ST T wave : inverted t waves V1 and III, no ANAHI qTC: 394 prior studies: no sig change from priors The study has been interpreted contemporaneously by me. . Radiology Impression Discussion of test interpretation with radiology: I discussed test interpretation with the radiologist and I have reviewed the radiologist's reading. External Record Review External record reviewed: Inpatient record and Outpatient record Discharge Plan Discharge Clinical Impression: Dizziness, Ocular migraine, Vertigo Patient Disposition: Home, Self-Care Instructions: Vertigo (ED), Ocular Migraine (ED) Additional Instructions: Return to the emergency department with any new or worsening symptoms including: Worsening dizziness, headaches, fevers greater than 100?, numbness/tingling/weakness on 1 side of your body, facial drooping, word-finding issues, any new symptom that concerns you. Call 911 with any medical emergency. Prescriptions: No Action levothyroxine 175 mcg tablet 175 mcg PO DAILY Qty: 90 4RF furosemide 20 mg tablet 20 mg PO DAILY 90 Days Qty: 90 2RF atenolol 50 mg tablet 50 mg PO DAILY Qty: 90 3RF metronidazole 250 mg tablet 250 mg PO TID 10 Days Qty: 30 0RF lovastatin 20 mg tablet 20 mg PO DAILY Qty: 90 2RF omeprazole 20 mg capsule,delayed release(DR/EC) 40 mg PO DAILY Qty: 180 0RF rifaximin 550 mg tablet 550 mg PO TID 14 Days Qty: 42 0RF Print Language: Dutch
--- NOTE | 2025-06-06 12:22 | ECG_ITS ---
Test Reason : STROKE Blood Pressure : */* mmHG Vent. Rate : 48 BPM Atrial Rate : 48 BPM P-R Int : 124 ms QRS Dur : 118 ms QT Int : 442 ms P-R-T Axes : -25 -44 -21 degrees QTcB Int : 394 ms Sinus bradycardia Left axis deviation Non-specific intra-ventricular conduction delay Minimal voltage criteria for LVH, may be normal variant ( Heath product ) Nonspecific ST and T wave abnormality Abnormal ECG When compared with ECG of 24-Sep-2024 11:51, Decrease in ventricular rate Referred By: Stephanie Oneal Electronically Signed By: PASHA MELO
[2025-06-06 12:31] LABS: Glucose, Whole Blood 67 mg/dL (60-115)
[2025-06-06 12:53] LABS: MANUAL DIFF FLAG NO
[2025-06-06 13:00] LABS: Hematocrit 38.8 % (37.0-47.0); Hemoglobin 13.3 g/dl (12.0-16.0); Imm Gran Abs Auto 0.03 X10*3/uL (0.00-0.03); Imm Gran Pct Auto 0.4 % (0.0-0.4); Lymphocytes Absolute Auto 3.2 X10*3/uL (1.2-4.9); Mean Corpuscular HGB Conc 34.3 g/dl (31.0-35.0); Mean Corpuscular Hemoglobin 31.5 pg (27.0-33.0); Mean Corpuscular Volume 91.9 fL (80.0-98.0); NRBC Abs Auto 0.000 X10*3/uL (0.0-0.012); NRBC Pct Auto 0.0 /100WBC (0.0-0.2); Platelet Count 226 X10*3/uL (160-400); Red Blood Count 4.22 X10*6/uL (4.20-5.50); White Blood Count 8.2 X10*3/uL (4.8-10.8)
[2025-06-06 13:09] LABS: D Dimer High Sensitivity < 150 NG/ML; INTERNATIONAL NORM RATIO 1.0 (0.9-1.1); Partial Thromboplastin Time 29.8 SEC (26.7-34.1); Prothrombin Time 11.0 SEC (10.9-12.4)
[2025-06-06 13:15] LABS: Anion Gap 14 (12-20); Blood Urea Nitrogen 16 mg/dL (9-16); Calcium 9.2 mg/dL (8.4-10.2); Carbon Dioxide 25 mmol/L (22-29); Chloride 108 mmol/L (96-108); Cholesterol 227 mg/dL (<200); Creatinine Clr Calc Pharmacy 84.5; Estimated Glomerular Filt Rate > 60; HDL Cholesterol 39 mg/dL (>40); Potassium 3.8 mmol/L (3.3-5.1); Sodium 143 mmol/L (135-145); Triglycerides 231 mg/dL (<150)
[2025-06-06 13:23] LABS: Troponin-I High Sensitivity < 2.7 ng/L (<3.5-17.0)
--- NOTE | 2025-06-06 13:23 | PC.NURSE ---
Pt A+OX4; SB per tele; pt has equal facial movements bilaterally; equal strength/ROM/CME all extremities; pt reports mild blurriness both eyes and a posterior RASHID; denies N/V; reports dizziness with position change, especially being supine; CT of head complete/results pending; POC BG 67 on arrival; 12.5GM D50 IVP gv per order; will re-evaluate POC BG per protocol; will assess ortho vs
[2025-06-06 13:32] LABS: Glucose, Whole Blood 95 mg/dL (60-115)
--- NOTE | 2025-06-06 13:46 | MHC.EDTECH ---
Addendum entered by Jon Jimenes 06/06/25 13:47: DR. Hough Original Note: DR. Robertson stated INR isn't needed PT was outside the time window.
[2025-06-06 14:37] LABS: Appearance Urine Clear; Glucose Urine UA Negative (Negative); PH 6.0 (5.0-9.0); Specific Gravity - Urine 1.010 (1.005-1.025)
[2025-06-06] MEDS: iohexoL 350 MG/ML 100 ML INFUS..BTL IV (15:21)
--- NOTE | 2025-06-06 18:29 | PC.NURSE ---
Neuros remain intact; pt reports no headache or blurred vision at this time; vss; awaiting dispo
== END 2025-06-06 19:17 | disposition home or self-care (01) ==
PROVIDERS: Emergency Medicine; Physician Assistant Medical; Emergency Provider Emergency Medicine; PCP Internal Medicine
DX: R42 Dizziness and giddiness (principal); G43.B0 Ophthalmoplegic migraine, not intractable; H53.8 Other visual disturbances; R11.2 Nausea with vomiting, unspecified; I10 Essential (primary) hypertension; R07.9 Chest pain, unspecified
CPT/HCPCS: 36415; 70450; 70496; 70498; 80048; 80061; 81001; 82947; 84484; 85025; 85379; 85610; 85730; 93005; 96365; 96366; 96375; 99285; J0131; J2405; Q9967

== ENCOUNTER → 2025-06-06 12:22 | Outpatient (BNV) | payer MEDICARE, SELFPAY | PROVIDERS: Emergency Provider Emergency Medicine; PCP Internal Medicine; Visit Provider Internal Medicine | DX: R00.1 Bradycardia, unspecified (principal); R94.31 Abnormal electrocardiogram [ECG] [EKG] | CPT/HCPCS: 93010 ==

== ENCOUNTER → 2025-06-06 12:22 | Outpatient (BNV) | payer MEDICARE, SELFPAY | PROVIDERS: Emergency Provider Emergency Medicine; PCP Internal Medicine; Visit Provider Radiology Diagnostic Radiology | DX: I65.23 Occlusion and stenosis of bilateral carotid arteries (principal); H53.8 Other visual disturbances | CPT/HCPCS: 70450; 70496; 70498 ==

== ENCOUNTER 2025-09-29 14:03 | Outpatient (REF) | payer MEDICARE, MEDICAID, SELFPAY ==
--- OUTSIDE RECORDS SUMMARY | 2025-09-29 18:00 | XMS_ITS | Clinical Summary ---
Author Organization [facility] [address] [facility] [address] Address [address] [place] [address] Phone Care Team Providers Care Background Check Coordinator Name Role Phone Cheryl Donahue MD Primary Care Provider [phone] Encounters Date Type Department Care Team Description 09/09/2025 Telephone Gastroenterology - [place] [address] [facility] [address] [place] [phone] Luciana Carey MD from Last 3 Months Social History Tobacco Use Types Packs/Day Years Used Date Smoking Tobacco: Never Assessed Comments Unknown Sex and Gender Information Value Date Recorded Sex Assigned at Not on file Legal Sex Female 8:08 AM EST Gender Identity Not on file Sexual Orientation Not on file Plan of Treatment Upcoming Encounters Date Type Department Care Team (Late st Contact Info) Description 12/10/2025 2:20 PM EST Consult Gastroenterology - [address] [place] [address] 299 [facility] [address] [place] [phone] Rigoberto Taylor MD 299 [facility] [address] [place] [address] Health Maintenance Due Date Last Done Comments Breast Cancer Screening 1955 Colorectal Cancer Screening: Colonoscopy 1955 DTaP,Tdap,and Td Vaccines (1 - Tdap) 1972 Pneumococcal Vaccine: 50+ Ye ars (1 of 1 - PCV) 2003 Zoster Vaccines (1 of 2) 2003 Depression Screening 10/30/2024 COVID-19 Vaccine (1 - 2024-2 6 season) 2025 Influenza Vaccine (#1) 2025 Falls Risk Assessment 09/09/2025 Hepatitis C Screening 09/09/2025 Medicare Annual Wellness Visit 09/09/2025 Osteoporosis Screening (Bone Density Screening) 09/09/2025 Social Influencers of Health Screening 09/09/2025 RSV Immunization Adult Patie nts (1 - 1-dose 75+ series) 2028 HIB Vaccines Aged Out No longer eligi ble based on patient's age to complete this topic HPV Vaccines Aged Out No longer eligi ble based on patient's age to complete this topic Hepatitis A Vaccines Aged Out No long er eligible based on patient's age to complete this topic Hepatitis B Vaccines Aged Out No long er eligible based on patient's age to complete this topic IPV Vaccines Aged Out No longer eligi ble based on patient's age to complete this topic MMR Vaccines Aged Out No longer eligi ble based on patient's age to complete this topic Meningococcal ACWY Vaccine Aged Out N o longer eligible based on patient's age to complete this topic Meningococcal B Vaccine Aged Out No l onger eligible based on patient's age to complete this topic RSV Immunization Patients Un annmarie 20 months Aged Out No longer eligible b ased on patient's age to complete this topic Varicella Vaccines Aged Out No longer eligible based on patient's age to complete this topic Insurance [employer] MEDICARE MEDICAID - [place] Care Teams Background Check Coordinator Relationship Specialty Start Date End Date Cheryl Donahue MD 2 [facility] , [address] [facility]ician Associ D/B/A: Jacky Gonzalezatialpesh In Internal Medicine [place] PCP - General Internal Medicine 09/09/25
[2025-09-30 06:11] LABS: CT PCR NOT DETECTED (Not Detect.); NG PCR NOT DETECTED (Not Detect.)
== END 2025-09-29 14:04 | disposition home or self-care (01) ==
LOC: HO.LNP 14:03
PROVIDERS: PCP Internal Medicine; Visit Provider Obstetrics & Gynecology
DX: R10.20 Pelvic and perineal pain unspecified side (principal); R31.29 Other microscopic hematuria; Z20.2 Contact with and (suspected) exposure to infections with a predominantly sexual mode of transmission
CPT/HCPCS: 81002; 87086; 87491; 87591; 99212

== ENCOUNTER 2025-09-29 14:03 | Outpatient (AMB) | payer MEDICARE, MEDICAID, SELFPAY ==
--- NOTE | 2025-09-29 14:09 | MHC.OFFVIS ---
Vital Signs 09/29/25 14:14 Height 5 ft 10 in Weight 279 lb BMI 40.0 BP 124/82 Intake Visit Reasons: increased pelvic pain Damascener Required: No Information Interpreted: non-clinical & clinical Credit Collections Analyst: Credit Collections Analyst Present (Carlota MUELLER) Accompanied by: Self / Same As Patient Allergies bee pollen Allergy (Severe, Verified 09/29/25 14:16) Swelling ciprofloxacin (From Cipro) Allergy (Severe, Verified 09/29/25 14:16) RASH-ITCHING Penicillins Allergy (Intermediate, Verified 09/29/25 14:16) Rash Sulfa (Sulfonamide Antibiotics) (SULFA (SULFONAMIDE ANTIBIOTICS)) Allergy (Intermediate, Verified 09/29/25 14:16) HIVES Post menopausal: Yes HPI Comments Details: The patient is presenting with bilateral lower pain started few months ago. It's intermittent in nature lasting few seconds and occurs multiple times a day. it is associated with diarrhea, test seen GI with multiple workup, no urinary symptoms no fever or chills. The patient was found to have thickened endometrium endometrial biopsy was insufficient, the patient was refer to [facility] O[facility]YN underwent hysteroscopy D&C, no pathology available [facility] Medical History Kidney cysts Fatty liver Hiatal hernia Peptic ulcer Hx of simple renal cyst History of fatty infiltration of liver Elevated cholesterol Thyroid disease HTN (hypertension) Surgical History History of endoscopy History of colonoscopy History of tonsillectomy and adenoidectomy History of bilateral cataract extraction Family History Father CVD (cardiovascular disease) Past heart attack Mother Breast cancer Bone metastases Brother Past heart attack Social History Household Members: None Housing: Apartment Are you a primary pharmacy care coordinator to a significant other at home: No Do you presently have visiting nurse or other home services: No Alcohol intake: never Patient Tobacco Use Status: Never used Tobacco e-Cigarette/Vaping Use: Never Used Second Hand Smoke Exposure: No service: No Current occupational status: retired Cognitive needs: No Hearing needs: No Vision needs: No Review of Systems Const All systems reviewed & are unremarkable except as noted in HPI and below Physical Exam Vital Signs: Last Vital Signs BP 124/82 09/29/25 14:14 BMI result Body Mass Index 40.0 General: Yes no CVA tenderness External Female Exam: normal external appearance and normal appearance of the urethra Speculum Exam - Vagina: normal appearance of the vagina, normal palpation, no lesions and no masses Speculum Exam - Cervix: normal appearance of the cervix, normal palpation, no lesions, no masses and nontender Bimanual exam- vagina & uterus: normal bimanual exam, normal palpation, uterine size normal, normal palpation, uterine shape normal, No Cervical tenderness present and non-tender Bimanual Exam- Adnexa, other: normal adnexae Back/Spine/Pelvis Back: no CVA tenderness Assessment & Plan Assessment & Plan (1) Pelvic pain: Comment: With chronic diarrhea Code(s): R10.20 - Pelvic and perineal pain unspecified side Category: Medical Plan: Urine dip done in the office showed microscopic hematuria. GC and chlamydia taken and pelvic ultrasound ordered. The patient has signed a release for an Pathology for D&C at [facility]. Discussed with the patient the differential diagnosis of pelvic pain including but not limited to adnexal, uterine masses, pelvic infections (PID), GI the (Irritable bowel syndrome, diverticulitis, others), musculoskeletal, myofascial pain abdominal wall , adhesions, endometriosis, psychological and others causes. Will check results and treat accordingly. All questions answered, the patient verbalized understanding. Instructed the patient to schedule an ultrasound and a follow-up appointment in 2 weeks. All questions answered, the patient verbalized understanding and agreed with the plan. (2) Microscopic hematuria: Code(s): R31.29 - Other microscopic hematuria Category: Medical Plan: Urine dip showed microscopic hematuria, urine culture sent. Will repeat urine dip in 2 weeks. Discussed with the patient the possible causes of microscopic hematuria including but not limited to: interstitial cystitis, polyps, stones, masses, urethral inflammatory processes and others. If Urine Culture is negative and repeat urine dip in 2 weeks shows persistent microscopic hematuria, will proceed with CT abdomen/pelvis and urology referral. Instructions given the patient to schedule a 2 week urine dip follow-up appointment. All questions answered and the patient verbalized understanding. Orders: Orders AMB Urinalysis Dipstick Today R31.29 - Other microscopic hematuria Urine Culture Today R31.29 - Other microscopic hematuria Coding Level of Care Code Est Pt Level 3 (78561) Diagnoses Pelvic pain R10.20 Microscopic hematuria R31.29
[2025-09-29 14:14] VITALS: BP 124/82; BMI 40.0
== END 2025-09-29 15:08 | disposition home or self-care (01) ==
LOC: HO.HWS 14:05
PROVIDERS: PCP Internal Medicine; Visit Provider Obstetrics & Gynecology
DX: R10.20 Pelvic and perineal pain unspecified side (principal); R31.29 Other microscopic hematuria
CPT/HCPCS: 99213

== ENCOUNTER 2025-09-30 07:16 | Outpatient (REF) | payer MEDICARE, MEDICAID, SELFPAY ==
--- NOTE | ~2025-09-30 | US_ITS ---
EXAMINATION: US PELVIS TRANSABDOMINAL AND TRANSVAGINAL HISTORY: R10.20 - Pelvic and perineal pain unspecified side COMPARISON: Juarez is made with the prior examination dated 09/29/2023. TECHNIQUE: Transabdominal and endovaginal real-time 2D whitlock-scale ultrasound was performed. FINDINGS: Uterus: The uterus is normal in size, measuring 6.6 x 2.4 x 4.1 cm. Myometrium has a normal echotexture. No fibroids are identified. Endometrium: The endometrial stripe measures 7 mm in thickness. Right ovary: The right ovary is only seen transabdominally and measures 2.4 x 1.5 x 1.6 cm. The right ovary is normal in size and echotexture. Left ovary: The left ovary is only seen transabdominally and measures 2.5 x 2.1 x 1.1 cm. A 7 mm hyperechoic focus is seen within or adjacent to the left ovary. Pelvic fluid: none. US/US pelvic and transvaginal IMPRESSION: The ovaries are only identified transabdominally. There is a 7 mm hyperechoic focus within or adjacent to the left ovary. This could be bowel related. Follow-up is suggested. Electronically signed by: Nura Dodson MD 09/30/2025 08:36 AM [facility]
--- OUTSIDE RECORDS SUMMARY | 2025-09-30 07:19 | XMS_ITS | Clinical Summary ---
Author Organization [facility] [address] [facility] [address] Address [address] [place] [address] Phone Care Team Providers Care Race Relations Professor Name Role Phone Cheryl Donahue MD Primary Care Provider Encounters Date Type Department Care Team Description 09/09/2025 Telephone Gastroenterology - [place] [address] [facility] [address] [place] [phone] Luciana Carey MD from Last 3 Months [...] 12/10/2025 2:20 PM EST Consult Gastroenterology - [address] [place] [address] [address] [facility] [address] [place] [phone] Rigoberto Taylor MD 299 [facility] [address] [place] [address] Health Maintenance Due Date Last Done Comments [...] HEALTHCARE MEDICARE MEDICAID - [place] Care Teams Race Relations Professor Relationship Specialty Start Date End Date Cheryl Donahue MD 2 [facility] , [address] [facility] Associ D/B/A: Jacky Gonzalezatialpesh In Internal Medicine [place] PCP - General Internal Medicine 09/09/25
== END 2025-09-30 07:17 | disposition home or self-care (01) ==
LOC: HO.US 07:16
PROVIDERS: PCP Internal Medicine; Visit Provider Obstetrics & Gynecology
DX: R10.20 Pelvic and perineal pain unspecified side (principal)
CPT/HCPCS: 76830; 76856

== ENCOUNTER → 2025-09-30 07:18 | Outpatient (BNV) | payer MEDICARE, MEDICAID, SELFPAY | PROVIDERS: PCP Internal Medicine; Visit Provider Radiology Diagnostic Radiology | DX: R10.20 Pelvic and perineal pain unspecified side (principal) | CPT/HCPCS: 76830; 76856 ==

== ENCOUNTER 2025-10-06 14:38 | Outpatient (AMB) | payer MEDICARE, MEDICAID, SELFPAY ==
--- NOTE | 2025-10-06 14:49 | MHC.OFFVIS ---
Vital Signs 10/06/25 15:24 Height 5 ft 10 in Weight 279 lb BMI 40.0 Intake Visit Reasons: U/s follow up Economics Lecturer Required: No Information Interpreted: non-clinical & clinical Special Programs Director: Special Programs Director Present (Carlota MUELLER) Accompanied by: Self / Same As Patient Allergies bee pollen Allergy (Severe, Verified 10/06/25 15:24) Swelling ciprofloxacin (From Cipro) Allergy (Severe, Verified 10/06/25 15:24) RASH-ITCHING Penicillins Allergy (Intermediate, Verified 10/06/25 15:24) Rash Sulfa (Sulfonamide Antibiotics) (SULFA (SULFONAMIDE ANTIBIOTICS)) Allergy (Intermediate, Verified 10/06/25 15:24) HIVES Post menopausal: Yes HPI Comments Details: Presenting for ultrasound follow-up showed the following: Uterus: The uterus is normal in size, measuring 6.6 x 2.4 x 4.1 cm. Myometrium has a normal echotexture. No fibroids are identified. Endometrium: The endometrial stripe measures 7 mm in thickness. Right ovary: The right ovary is only seen transabdominally and measures 2.4 x 1.5 x 1.6 cm. The right ovary is normal in size and echotexture. Left ovary: The left ovary is only seen transabdominally and measures 2.5 x 2.1 x 1.1 cm. A 7 mm hyperechoic focus is seen within or adjacent to the left ovary. Pelvic fluid: none. US/US pelvic and transvaginal IMPRESSION: The ovaries are only identified transabdominally. There is a 7 mm hyperechoic focus within or adjacent to the left ovary. This could be bowel related. Follow-up is suggested. The patient gives a history of hysteroscopy D&C polypectomy and the pathology according to the patient was hyperplasia but no pathology available no follow-up EMB or treatment with scheduled [facility] Medical History Kidney cysts Fatty liver Hiatal hernia Peptic ulcer Hx of simple renal cyst History of fatty infiltration of liver Elevated cholesterol Thyroid disease HTN (hypertension) Surgical History History of endoscopy History of colonoscopy History of tonsillectomy and adenoidectomy History of bilateral cataract extraction Family History Father CVD (cardiovascular disease) Past heart attack Mother Breast cancer Bone metastases Brother Past heart attack Social History Household Members: None Housing: Apartment Are you a primary eye care professional to a significant other at home: No Do you presently have visiting nurse or other home services: No Alcohol intake: never Patient Tobacco Use Status: Never used Tobacco e-Cigarette/Vaping Use: Never Used Second Hand Smoke Exposure: No service: No Current occupational status: retired Cognitive needs: No Hearing needs: No Vision needs: No Review of Systems Const All systems reviewed & are unremarkable except as noted in HPI and below Physical Exam General: Yes no CVA tenderness External Female Exam: normal external appearance and normal appearance of the urethra Speculum Exam - Vagina: normal appearance of the vagina, normal palpation, no lesions and no masses Speculum Exam - Cervix: normal appearance of the cervix, normal palpation, no lesions, no masses and nontender Bimanual exam- vagina & uterus: normal bimanual exam, normal palpation, uterine size normal, normal palpation, uterine shape normal, No Cervical tenderness present and non-tender Bimanual Exam- Adnexa, other: normal adnexae Back/Spine/Pelvis Back: no CVA tenderness Office Procedures Endometrial Biopsy Details: The patient was counseled regarding the indication and benefits of endometrial sampling to rule out endometrial pathology including not limited to endometrial hyperplasia or endometrial cancer and others; The alternatives (Either do nothing vs. hysteroscopy D&C) & the risks were discussed with the patient including but not limited: pain, uterine perforation, bleeding, infection, possible injury to bladder, bowel, ureter, possible need for blood transfusion with all its possible risks. The patient verbalized understanding all questions answered and signed consent. The patient was placed into the dorsal lithotomy position; a speculum was inserted in the vagina. Using aseptic technique for the procedure, the cervix was cleansed with Betadine. 10 cc of 1% lidocaine were injected at 2, 4, 8 and 10:00 intra cervix. The anterior lip of the cervix was grasped with a single tooth tenaculum. The uterus was sounded to 7 cm with a 4 mm Pipelle was used. Tissues samples were obtained and placed in formalin, in a patient labeled container and sent to the pathology department. At the end of the procedure, there was minimal bleeding noted The patient tolerated the procedure well and was discharged in good condition with the following instructions: Nothing in the vagina until the bleeding stops. No sex until the bleeding stops, to call if any of the following occurs: fever (>100.4), flu-like symptoms, abdominal pain, heavy bleeding, four smelling vaginal discharge. The patient was instructed to schedule a Follow up appointment in 2 weeks to discuss pathology results of the biopsy and treatment options. This note was generated with a voice recognition program. Some errors may have been overlooked during the review of this note. Sometimes these errors may affect the content or meaning of a given sentence. [id number]-[id number] Biopsy Assessment & Plan Assessment & Plan (1) Thickened endometrium: Comment: History of polyp was hyperplasia? In 2023 Code(s): R93.89 - Abnormal findings on diagnostic imaging of other specified body structures Category: Medical Plan: Will request pathology of the D&C/polypectomy done a year and half ago at [facility], request sent and the consent signed Discussed with the patient endometrial thickness above 4 mm in menopause , the differential diagnosis of a thickened endometrium includes but not limited to endometrial polyp, hyperplasia or carcinoma. Explained to the patient that endometrial each thickness is less predictive of endometrial neoplasia in asymptomatic patients, i.e. those without postmenopausal uterine bleeding. The sensitivity and specificity for detecting endometrial carcinoma at an endometrial thickness of >= 5mm was 83 and 72 percent, respectively; this is lower than in patients with bleeding. Studies have shown that postmenopausal patients without uterine bleeding who had an endometrial thickness >11 mm had an endometrial carcinoma risk of 6.7 percent; this risk is similar to postmenopausal patients with bleeding and an endometrial thickness >5 mm. Recommended endometrial sampling to rule endometrial pathology via either office endometrial biopsy or diagnostic hysteroscopy/D&C with possible polypectomy/myomectomy. All pros and cons, risks and benefits of each approach were discussed with the patient, the patient decided to proceed with endometrial biopsy with paracervical block. EMB with paracervical block done, see procedure note (2) Calcification of ovary: Code(s): N83.8 - Other noninflammatory disorders of ovary, fallopian tube and broad ligament Category: Medical Plan: Discussed with the patient the finding on ultrasound, recommended repeat ultrasound in 6 weeks order placed, instructions given the patient to schedule an ultrasound follow-up appointment Orders: Orders AMB Endometrial Biopsy Today R93.89 - Abnormal findings on diagnostic imaging of other specified body structures US pelvic and transvaginal 6 Weeks N83.8 - Other noninflammatory disorders of ovary, fallopian tube and broad ligament Coding Level of Care Code Est Pt Level 3 (22561) Procedure Only Diagnoses Thickened endometrium R93.89 Calcification of ovary N83.8 CPT Codes Endometrial Biopsy - CPT: 40594-Wgmlfswgxvd Biopsy ([id number])
[2025-10-06 15:24] VITALS: BMI 40.0
--- OUTSIDE RECORDS SUMMARY | 2025-10-06 23:48 | XMS_ITS | Clinical Summary ---
Author Organization [facility] [address] [facility] [address] Address [address] [place] [address] Phone Care Team Providers Care Magician/Illusionist Name Role Phone Cheryl Donahue MD Primary Care Provider [phone] Encounters Date Type Department Care Team Description 09/09/2025 Telephone Gastroenterology - [place] [address] [facility] [address] [place] [phone] Luciana Carey MD from Last 3 Months [...] 12/10/2025 2:20 PM EST Consult Gastroenterology - [address] [place] [address] 299 [facility] [address] [place] [phone] Rigoberto Taylor MD 299 [facility] [address] [place] [address] Health Maintenance Due Date Last Done Comments [...] complete this topic Insurance [employer] [place] [address] MEDICAID - [place] Care Teams Magician/Illusionist Relationship Specialty Start Date End Date Cheryl Donahue MD 2 [facility] , [address] [facility] Physician Associ D/B/A: Jacky Gonzalezatialpesh In Internal Medicine [place] PCP - General Internal Medicine 09/09/25
== END 2025-10-06 16:09 | disposition home or self-care (01) ==
LOC: HO.HWS 14:39
PROVIDERS: PCP Internal Medicine; Visit Provider Obstetrics & Gynecology
DX: R93.89 Abnormal findings on diagnostic imaging of other specified body structures (principal); N83.8 Other noninflammatory disorders of ovary, fallopian tube and broad ligament
CPT/HCPCS: 58100; 99213

== ENCOUNTER 2025-10-06 14:38 | Outpatient (REF) | payer MEDICARE, MEDICAID, SELFPAY | END 2025-10-06 14:39 | disposition home or self-care (01) | LOC: HO.LNP 14:38 | PROVIDERS: PCP Internal Medicine; Visit Provider Obstetrics & Gynecology | DX: R39.89 Other symptoms and signs involving the genitourinary system (principal); N83.8 Other noninflammatory disorders of ovary, fallopian tube and broad ligament | CPT/HCPCS: 58100; 88305; 99212 ==

== ENCOUNTER 2025-10-15 09:32 | Outpatient (AMB) | payer MEDICARE, MEDICAID, SELFPAY ==
[2025-10-15 10:08] VITALS: BP 122/86; BMI 40.0
--- NOTE | 2025-10-15 10:08 | A.OFFVIS_ITS ---
Vital Signs 10/15/25 10:08 Height 5 ft 10 in Weight 279 lb BMI 40.0 BP 122/86 Intake Visit Reasons: EMB results [employer] Teacher Required: No Information Interpreted: non-clinical & clinical Auto Self Service Station Attendant: Auto Self Service Station Attendant Present Accompanied by: Self / Same As Patient Allergies bee pollen Allergy (Severe, Verified 10/15/25 10:09) Swelling ciprofloxacin (From Cipro) Allergy (Severe, Verified 10/15/25 10:09) RASH-ITCHING Penicillins Allergy (Intermediate, Verified 10/15/25 10:09) Rash Sulfa (Sulfonamide Antibiotics) (SULFA (SULFONAMIDE ANTIBIOTICS)) Allergy (Intermediate, Verified 10/15/25 10:09) HIVES Is last menstrual period known: Yes Last menstrual period: 08/27/20 Post menopausal: No Patient : No Do you need a note to return to daycare/school/sports/work: Yes (for surgery on monday) HPI Comments Details: The patient is presenting after endometrial biopsy. The patient has no complaints, no vaginal bleeding, no feverishness chills or abdominal pain. The endometrial biopsy pathology report showed the following: Endometrium, biopsy: Fragment of benign endometrial polyp, superficial strips of benign inactive endometrium, and benign endocervical glandular epithelium; no atypia or carcinoma I received records from [facility], review showed the followin06/03/2022 CT coronary no evidence of hemodynamically significant coronary artery disease mild calcification of the proximal circumflex with a minimal less than 25% stenosis 01/09/2024 [facility] OBGYN office endometrial biopsy pathology showed polypoid fragments of endometrium with glandular disorder with focal glandular crowding and fragments of inactive to weakly proliferative endometrium with focal detached squamous morular metaplasia; in the comment there was a mention that the foci of glandular crowding may be artifact of stromal breakdown or may represent hyperplasia which can not be further diagnosed. However a detached fragments of squamous modular metaplasia is identified which may be associated with hyperplasia and neoplastic processes 02/20/2024 hysteroscopy polypectomy D and C, pathology showed the following endometrial polyp with small focus of crowded glands which raised the possibility of endometrial neoplasia, EIN, however a focus is insufficient to establish a diagnosis, repeat endometrial sampling for histologic examination is recommended Endometrial curettage showed weakly proliferative endometrium with tubal metaplasia and stromal breakdown and fragments endometrial polyp [facility] Medical History Kidney cysts Fatty liver Hiatal hernia Peptic ulcer Hx of simple renal cyst History of fatty infiltration of liver Elevated cholesterol Thyroid disease HTN (hypertension) Surgical History History of endoscopy History of colonoscopy History of tonsillectomy and adenoidectomy History of bilateral cataract extraction Family History Father CVD (cardiovascular disease) Past heart attack Mother Breast cancer Bone metastases Brother Past heart attack Social History Household Members: None Housing: Apartment Are you a primary livestock caretaker to a significant other at home: No Do you presently have visiting nurse or other home services: No Alcohol intake: never Patient Tobacco Use Status: Never used Tobacco e-Cigarette/Vaping Use: Never Used Second Hand Smoke Exposure: No service: No Current occupational status: retired Cognitive needs: No Hearing needs: No Vision needs: No Female Reproductive History Menstrual Date of last menstrual period: 08/27/20 Total pregnancies: 2 Full term: 2 Review of Systems Const All systems reviewed & are unremarkable except as noted in HPI and below Reports as per HPI and Reports no additional complaints Card Reports as per HPI and Reports no additional complaints Resp Reports as per HPI and Reports no additional complaints GI Reports as per HPI and Reports no additional complaints Reports as per HPI Physical Exam Vital Signs: Last Vital Signs BP 122/86 10/15/25 10:08 BMI result Body Mass Index 40.0 Const General: cooperative, healthy appearing and comfortable Resp Effort & Inspection: normal respiratory effort Auscultation: clear to auscultation bilaterally Percussion: percussion normal Cardio Palpation: normal PMI Rate: regular rate Rhythm: regular rhythm Heart sounds: no murmurs and no rubs Peripheral pulses: Peripheral pulses 2+ throughout GI Inspection: Yes normal to inspection Palpation (GI): Soft to palpation, nontender, no guarding, not rigid and No hepatosplenomegaly present Percussion: Yes normal to percussion Auscultation: normal bowel sounds Rectal Exam - Female: deferred Assessment & Plan Assessment & Plan (1) Thickened endometrium: Comment: Fragment of benign polyp with inactive endometrium on EMB History of polyp and? EIN on hysteroscopy D&C in 01/2024 at [place] Code(s): R93.89 - Abnormal findings on diagnostic imaging of other specified body structures Category: Medical Plan: Discussed with the patient the results of the EMB fragment of benign polyp with inactive endometrium Given the recurrence of polyp and the previous pathology showing crowded glands suspicious of EIN but not diagnostic in 02/20, the patient is concerned future development of endometrial pathology including hyperplasia and cancer and is requesting a hysterectomy Refer to [facility] for a consult for possibility of hysterectomy in order to prevent future recurrence of EIN , cancer or polyp Orders: Referrals Gynecologic Oncology Referral R93.89 - Abnormal findings on diagnostic imaging of other specified body structures Coding Level of Care Code Est Pt Level 3 (50172) Diagnoses Thickened endometrium R93.89
--- OUTSIDE RECORDS SUMMARY | 2025-10-15 10:56 | XMS_ITS | Clinical Summary ---
Author Organization [facility] [address] Address [address] [place] [address] Phone Care Team Providers Care Cafe Site Attendant Name Role Phone Cheryl Donahue MD Primary Care Provider [phone] Encounters Date Type Department Care Team Description 09/09/2025 Telephone Gastroenterology - [address] [facility] [address] [place] [id number] Luciana Carey MD from Last 3 Months [...] 12/10/2025 2:20 PM EST Consult Gastroenterology - [address] [place] [address] [address] [facility] [address] [place] [phone] Rigoberto Taylor MD [address] [facility] [address] [place] [address] Health Maintenance Due Date Last Done Comments [...] HEALTHCARE MEDICARE [place]ICAID - [place] Care Teams Cafe Site Attendant Relationship Specialty Start Date End Date Cheryl Donahue MD [address] [facility] , [address] [facility] D/B/A: Jacky Gonzalezatialpesh [facility] PCP - General Internal Medicine 09/09/25
== END 2025-10-15 10:51 | disposition home or self-care (01) ==
LOC: HO.HWS 09:32
PROVIDERS: PCP Internal Medicine; Visit Provider Obstetrics & Gynecology
DX: R93.89 Abnormal findings on diagnostic imaging of other specified body structures (principal)
CPT/HCPCS: 99213

== ENCOUNTER → 2025-10-15 09:32 | Outpatient (BNVA) | payer MEDICARE, MEDICAID, SELFPAY | PROVIDERS: PCP Internal Medicine; Visit Provider Obstetrics & Gynecology | DX: R93.89 Abnormal findings on diagnostic imaging of other specified body structures (principal); N84.0 Polyp of corpus uteri; Z98.890 Other specified postprocedural states | CPT/HCPCS: 99212 ==